=== PATIENT | female | born 1980 | race Two or more races ===

== ENCOUNTER 2020-04-24 13:03 | Outpatient (REF) | payer OTHER, SELFPAY | END 2020-04-24 13:04 | disposition home or self-care (01) | LOC: HO.LAB 13:03 | PROVIDERS: Visit Provider Internal Medicine | DX: Z20.822 Contact with and (suspected) exposure to COVID-19 (principal) | CPT/HCPCS: 36415; C9803; U0003 ==

== ENCOUNTER 2020-10-04 18:46 | Emergency (ER) | payer OTHER, SELFPAY ==
[2020-10-04 19:43] VITALS: BP 133/82; PULSE 75; RESP 17; TEMP 36.7; O2SAT 99; BMI 34.6
--- NOTE | 2020-10-04 21:28 | ECG_ITS ---
Test Reason : MEDICAL Blood Pressure : / mmHG Vent. Rate : 060 BPM Atrial Rate : 060 BPM P-R Int : 152 ms QRS Dur : 090 ms QT Int : 428 ms P-R-T Axes : 050 052 029 degrees QTc Int : 428 ms Normal sinus rhythm Normal ECG No significant changes when compared with the previous EKG of 13 july 2014 Referred By: Sita Pierre Electronically Signed By:SLADE IYER
--- NOTE | 2020-10-04 21:28 | ED.GENADULT ---
HPI - General Adult General Chief complaint: General Medical Stated complaint: neck, back and shoulder pain Time Seen by Provider: 10/04/20 20:44 Source: patient Mode of arrival: ambulatory History of Present Illness HPI narrative: 39-year-old female with a past medical history of asthma, tubal ligation, presenting to the ED complaining of right sided neck/back pain radiating down RUE, and midback pain since Friday s/p lifting heavy mattress. Admits pain exacerbated with movement/ head rotation. Took Tylenol home with little relief. Denies direct trauma / fall, numbness, tingling, weakness, urinary incontinence / retention, CP/SOB Related Data Previous Rx's Medication Instructions Recorded acetaminophen [Tylenol Extra 500 mg PO Q6H PRN #20 tab 10/04/20 Strength] cyclobenzaprine 5 mg PO Q8H PRN 5 Days #14 tab 10/04/20 lidocaine [Lidoderm] 1 patch TOPICAL DAILY PRN #30 ea 10/04/20 MDD remove after 12 hours naproxen 500 mg PO BID PRN 10 Days #20 tab 10/04/20 Allergies Allergy/AdvReac Type Severity Reaction Status Date / Time Environmental Allergy Intermediate UNKNOWN Uncoded 10/04/20 19:43 (SEASONAL ALLERGIES) seasonal., pollen Allergy Unknown seasonal Uncoded 10/04/20 19:43 Review of Systems Review of Systems: Constitutional: No Fever, No Chills Cardiovascular: No Chest Pain, No SOB Respiratory: No Cough, No Sputum, No Wheezing Gastrointestinal: No Nausea, No Vomiting, No Abdominal pain Genitourinary:,No Urinary Incontinence/ retention Musculoskeletal: + joint pain, + Myalgias, No Joint Swelling Skin: No Skin Lesions, No rash Neuro: No Weakness, No Numbness, No Paresthesias Yes all other systems are reviewed and are negative Neurologic: Denies Sensory deficit (Neuro) [facility] Past Medical History Attestation statement: The following information was validated with the patient. Medical History (Updated 10/04/20 @ 21:55 by KIMBERLEE Wang) Asthma Surgical History (Updated 10/04/20 @ 19:47 by Julieth Malin RN) History of tubal ligation Tubal ligation status Family History Family History (Updated 05/19/20 @ 08:58 by MARY Ron, [employer]) Father Asthma Diabetes mellitus Mother HTN (hypertension) Maternal Grandmother No problems noted. Brother No problems noted. Brother No problems noted. Sister No problems noted. Sister No problems noted. Sister No problems noted. Sister No problems noted. Sister Colon cancer Son No problems noted. Daughter No problems noted. Daughter No problems noted. Social History Social History Advance Directives: No Advance Directives Information Provided: No Patient : No Physical Exam Vital Signs: Vital Signs: Last Vital Signs Temp 98.1 F 10/04/20 19:43 Pulse 75 10/04/20 19:43 Resp 17 10/04/20 19:43 BP 133/82 10/04/20 19:43 Pulse Ox 99 10/04/20 19:43 Body Mass Index 34.6 Const: General: cooperative, healthy appearing and no acute distress Orientation/consciousness: patient oriented x3 Limitations: no limitations HENMT: Head: Yes normal to inspection Ears: hearing grossly normal bilaterally General nose exam: Normal external nose present Face and sinus: Yes normal facial exam Eyes: General: appearance normal, both eyes and all related structures EOM: EOMs intact bilaterally Neck: Other: no midline cervical spinous tenderness. + Right-sided paraspinal tenderness and right trapezius muscle tenderness to palpation. Pain elicited on rightward neck movement Neck: Yes normal visual inspection Resp: Effort & Inspection: normal respiratory effort Cardio: Rate: regular rate Peripheral pulses: radial pulses present GI: Inspection: Yes normal to inspection Palpation (GI): Soft to palpation, nontender and no guarding Back/Spine/Pelvis: Other: no midline thoracic/ lumbar spinous tenderness/ step-offs or deformity. + Right-sided MSK thoracic tenderness to palpation Skin: Rashes: no rashes Wounds: no wounds Neuro: Other: no saddle anesthesia General: patient oriented x3, gait normal, tone normal and moves all extremities Gait exam (Neuro): Normal gait present Motor exam (neuro): 5/5 motor strength present throughout Sensory Exam: No Sensory deficit (Neuro) Extrem: General: Yes normal to inspection Medical Decision Making MDM Narrative Medical decision making narrative: 39-year-old female with a past medical history of asthma, tubal ligation, presenting to the ED complaining of right sided neck/back pain radiating down RUE, and midback pain since Friday s/p lifting heavy mattress. On exam VSS, NAD/ well-appearing, no midline spinous tenderness throughout, no red flag symptoms, MSK pain elicited on palpation/with neck movement. Low concern for cauda equina, cord compression. Symptoms atypical for ACS. Low concern for cervical dissection/CVT pain: EKG, symptomatic treatment ECG Data Attestation: I personally reviewed and interpreted this ECG as follows: Interpretation: EKG normal sinus rhythm with a rate of 60. No STEMI, nonischemic Discharge Plan Discharge Clinical Impression: Muscle spasms of neck, Back pain Patient Disposition: Home, Self-Care Instructions: Musculoskeletal Pain (ED) Additional Instructions: Your pain is likely musculoskeletal Flexeril is a muscle relaxer, take at night as it makes you drowsy, do not drive, drink alcohol, or operate machinery while taking it Naproxen as an anti-inflammatory / pain medication, take with food Lidoderm patches are numbing patches, apply to painful area In addition take Tylenol at home If symptoms persist or worsen, pain becomes unbearable, you developed urinary retention or incontinence, or weakness return to the ED Prescriptions: New acetaminophen [Tylenol Extra Strength] 500 mg tablet 500 mg PO Q6H PRN (Reason: pain or fever) Qty: 20 RF: 0 lidocaine [Lidoderm] 5 % adhesive patch,medicated 1 patch topical DAILY MDD remove after 12 hours PRN (Reason: pain) Qty: 30 RF: 0 naproxen 500 mg tablet 500 mg PO BID PRN (Reason: pain) 10 Days Qty: 20 RF: 0 cyclobenzaprine 5 mg tablet 5 mg PO Q8H PRN (Reason: pain (scale score 7-10)) 5 Days Qty: 14 RF: 0 Referrals: Jose De Jesus Ye MD [Primary Care Provider] - 2 days Stand Alone Forms: Work/School Release
[2020-10-04 21:48] VITALS: BP 119/79; PULSE 74; RESP 16; TEMP 36.4; O2SAT 99
== END 2020-10-04 22:18 | disposition home or self-care (01) ==
PROVIDERS: Emergency Provider Emergency Medicine; PCP Family Medicine
DX: M62.838 Other muscle spasm (principal); M54.9 Dorsalgia, unspecified
CPT/HCPCS: 93005; 99283; 99284

== ENCOUNTER 2021-03-06 08:55 | Emergency (ER) | payer OTHER, SELFPAY ==
--- NOTE | ~2021-03-06 | XR_ITS ---
EXAMINATION: XR HIP, RIGHT and pelvis CLINICAL INFORMATION: Pain COMPARISON: None TECHNIQUE: Two views of the right hip and AP view of the pelvis. FINDINGS: No fracture or dislocation is seen. There may be mild bilateral axial joint space narrowing at both hip joints. Hip joints are otherwise normal. Bones of the pelvis are normal. There are bilateral pelvic soft tissue calcifications probably representing calcified phleboliths. XR/XR hip RT w PEL1V IMPRESSION: Question mild bilateral axial joint space narrowing at the hip joints. Otherwise unremarkable exam.
--- NOTE | ~2021-03-06 | XR_ITS ---
EXAMINATION: XR LUMBOSACRAL SPINE CLINICAL INFORMATION: Pain COMPARISON: None TECHNIQUE: Three views of the lumbosacral spine. FINDINGS: The vertebral bodies and posterior elements are normal. The disc spaces are preserved and the vertebral alignment is normal. The paraspinal soft tissues are normal. XR/XR lumbar spine 2-3V IMPRESSION: Unremarkable examination.
[2021-03-06 08:59] VITALS: BP 123/85; PULSE 64; RESP 20; TEMP 36.3; O2SAT 99; BMI 33.5
[2021-03-06 09:09] VITALS: BP 138/81; PULSE 72; RESP 18; TEMP 36.5; O2SAT 96
[2021-03-06] MEDS: Ibuprofen 800 MG TABLET PO (09:37)
[2021-03-06] MEDS: predniSONE 20 MG TABLET 60 MG PO (09:37)
--- NOTE | 2021-03-06 10:22 | ED_ITS ---
HPI - Extremity Problem General Chief complaint: Extremity Problem Stated complaint: Pinched nerve Time Seen by Provider: 03/06/21 09:13 Source: patient and family Mode of arrival: ambulatory Limitations: no limitations History of Present Illness HPI Narrative: 40-year-old female presenting to the ED with complaints of atraumatic right lower back pain/hip pain radiating to her right lateral thigh since yesterday afternoon. 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 She reports she has never had this pain in the past. She denies any fevers, chills, dizziness, headache, neck pain/ stiffness, chest pain or shortness of breath, dyspnea on exertion, orthopnea, palpitations, lower extremity edema or calf tenderness, recent falls, recent travel, Rashes, history of DVT or PE, history of PVD disease, recent illness, recent immobilization or surgery, history of gout or any other symptoms complaints or concerns at this time. MD Complaint: extremity pain Onset (ago): day(s) ( since yesterday) Pain Consistency: constant Location: right and lower extremity ( hip) Severity scale (1-10): >10 Quality: aching and constant Radiation: distal Relieving factors: nothing Exacerbating factors: range of motion, weight bearing, walking and palpation Associated symptoms: denies other symptoms Related Data Previous Rx's Medication Instructions Recorded acetaminophen 500 mg tablet 500 mg PO Q6H PRN #20 tab 10/04/20 (Tylenol Extra Strength) cyclobenzaprine 5 mg tablet 5 mg PO Q8H PRN 5 Days #14 tab 10/04/20 lidocaine 5 % topical patch 1 patch TOPICAL DAILY PRN #30 ea 10/04/20 (Lidoderm) MDD remove after 12 hours naproxen 500 mg tablet 500 mg PO BID PRN 10 Days #20 tab 10/04/20 acetaminophen 300 mg-codeine 30 mg 1 tab PO Q8H PRN #14 tab 03/06/21 tablet cyclobenzaprine 10 mg tablet 10 mg PO Q8H PRN #14 tab 03/06/21 ibuprofen 800 mg tablet 800 mg PO Q8H PRN #14 tab 03/06/21 lidocaine 5 % topical patch 1 patch TOPICAL DAILY #15 ea 03/06/21 (Lidoderm) prednisone 20 mg tablet 40 mg PO DAILY 5 Days #10 tab 03/06/21 Allergies Allergy/AdvReac Type Severity Reaction Status Date / Time Environmental Allergy Intermediate UNKNOWN Uncoded 03/06/21 08:59 (SEASONAL ALLERGIES) seasonal., pollen Allergy Unknown seasonal Uncoded 03/06/21 08:59 Review of Systems Review of Systems: Constitutional : No trauma, No Weight loss, No Fever, No Chills, ENT/Mouth : No Hearing loss, No Ear Pain, No Nasal Congestion, No Sinus Pain, No Hoarseness, No sore throat, No Rhinorrhea, No Swallowing Difficulty Cardiovascular : No Chest Pain, No SOB Respiratory : No Cough, No Dyspnea Gastrointestinal : No Nausea, No Vomiting, No Diarrhea, No abdominal Pain, No Hematochezia, No Melena Genitourinary : No Dysuria, No Urinary Frequency, No Hematuria, No Urinary or Bowel Incontinence/retention Musculoskeletal : + Back/r hip pain, No neck pain, No joint stiffness, No joint swelling Skin : No Skin Lesions, No rash or signs of infection Neuro : No Weakness, + pain radiation, No Numbness, No Paresthesias, No headache, no loss of bowel or bladder incontinence, no saddle anesthesia, Focal weakness, No radiation Denies history of IV drug usage. Yes all other systems are reviewed and are negative [facility] Past Medical History Attestation statement: The following information was validated with the patient. Medical History Asthma Surgical History History of tubal ligation Tubal ligation status Family History Family History Father Asthma Diabetes mellitus Mother HTN (hypertension) Maternal Grandmother No problems noted. Brother No problems noted. Brother No problems noted. Sister No problems noted. Sister No problems noted. Sister No problems noted. Sister No problems noted. Sister Colon cancer Son No problems noted. Daughter No problems noted. Daughter No problems noted. Social History Social History Advance Directives: No Advance Directives Information Provided: Yes Patient : No Physical Exam Vital Signs: Vital Signs: Last Vital Signs Temp 97.7 F 03/06/21 09:09 Pulse 72 03/06/21 09:09 Resp 18 03/06/21 09:09 BP 138/81 03/06/21 09:09 Pulse Ox 96 03/06/21 09:09 BMI result Body Mass Index 33.5 vital signs have been reviewed as normal and appeared to be correct. Blood pressure normal. Heart rate normal. Respiration rate normal. Temperature normal. Oxygen saturation normal. Appearance: Alert. Oriented X3. No acute distress. Head: Normal external exam. Normocephalic. Atraumatic. No Barrientos signs noted. No raccoon eyes noted Eyes: PERRLA. EOMI. Conjunctiva and sclera normal. Eyelids normal. ENT: EAC normal. TM's Normal. Pharynx normal. Uvula midline. Moist mucous membranes. No trismus noted. No drooling noted. No muffled voice noted. Neck: Normal inspection. Neck supple. FROM. No adenopathy. Thyroid Normal. No meningeal signs. No neck mass noted. CVS: Normal heart rate and rhythm. Heart sound normal. No murmurs noted. Pulses normal throughout. Respiratory: No respiratory distress. Painless inspiration. Breath sounds normal. No wheezes/rales/rhonchi noted. Chest nontender. No accessory muscle usage noted or decreased air movement noted. Abdomen: Soft and nontender. Bowel sounds normal in all 4 quadrants. No distention noted. No organomegaly noted. No visible injury noted. Back: No CVA tenderness. Full range of motion noted. No obvious deformities, or edema. Mild para-spinal muscular tenderness from lumbar region to coccyx. Full ROM in back and lower extremities. 5/5 strength hip extension/flexion, abduction, adduction. Mild Lumbar pain with hip flexion against resistance. Straight leg raise test negative on right; Straight leg raise test negative on left; Reflexes normal ankle and knee bilaterally; EHL motor strength normal bilaterally. No rashes/lesion/induration/fluctuance or signs infection noted. and patient has moderate tenderness to palpation with range of motion of the right hip. No obvious ligamentous or tendon injury. No obvious deformities noted. No rashes are noted. Skin: Skin warm and dry. Normal skin color. Normal skin turgor. No rashes/lesions/lacerations noted. Extremities: No lower extremity edema. No calf tenderness is noted. Other than the right hip pain there is no other tenderness to any of her extremities and they have full range of motion. Neuro: Oriented X 3. No motor deficit. No sensory deficit. Reflexes normal. Patient has a normal steady gait. Course Course Course Narrative: 40-year-old female presenting to the ED with complaints of atraumatic right lower back pain/hip pain radiating to her right lateral thigh since yesterday afternoon. 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 She reports she has never had this pain in the past. She denies any fevers, chills, dizziness, headache, neck pain/ stiffness, chest pain or shortness of breath, dyspnea on exertion, orthopnea, palpitations, lower extremity edema or calf tenderness, recent falls, recent travel, Rashes, history of DVT or PE, history of PVD disease, recent illness, recent immobilization or surgery, history of gout or any other symptoms complaints or concerns at this time. X-rays obtained of lower back obtained and revealed chronic changes. X-ray of right hip obtained revealed arthritis to bilateral hips/ narrowing otherwise no other acute processes. Therefore patient reports the Tylenol with codeine /800 mg of Motrin and 60 mg prednisone provided symptomatic relief therefore at this time will provide the same to go home with and instructions to follow-up with primary care provider for referral for therapy and to return if any new or worsening symptoms. Patient understands agrees with this plan. MDM - Extremity (Nontraumatic) Imaging Data Right hip and pelvis x-rays and lower back x-ray: Attestation: I personally reviewed and interpreted this imaging study as follows: Radiologist's impression: FINDINGS: No fracture or dislocation is seen. There may be mild bilateral axial joint space narrowing at both hip joints. Hip joints are otherwise normal. Bones of the pelvis are normal. There are bilateral pelvic soft tissue calcifications probably representing calcified phleboliths. XR/XR hip RT w PEL1V IMPRESSION: Question mild bilateral axial joint space narrowing at the hip joints. Otherwise unremarkable exam. FINDINGS: The vertebral bodies and posterior elements are normal. The disc spaces are preserved and the vertebral alignment is normal. The paraspinal soft tissues are normal. XR/XR lumbar spine 2-3V IMPRESSION: Unremarkable examination.? Discharge Plan Discharge Clinical Impression: Arthritis of right hip, Lumbar strain Patient Disposition: Home, Self-Care Instructions: Osteoarthritis (ED), Low Back Strain (ED) Prescriptions: New cyclobenzaprine 10 mg tablet 10 mg PO Q8H PRN (Reason: Muscle spasm) Qty: 14 RF: 0 ibuprofen 800 mg tablet 800 mg PO Q8H PRN (Reason: pain) Qty: 14 RF: 0 prednisone 20 mg tablet 40 mg PO DAILY 5 Days Qty: 10 RF: 0 acetaminophen-codeine 300-30 mg tablet 1 tab PO Q8H PRN (Reason: pain) Qty: 14 RF: 0 lidocaine [Lidoderm] 5 % adhesive patch,medicated 1 patch topical DAILY Qty: 15 RF: 0 No Action acetaminophen [Tylenol Extra Strength] 500 mg tablet 500 mg PO Q6H PRN (Reason: pain or fever) Qty: 20 RF: 0 lidocaine [Lidoderm] 5 % adhesive patch,medicated 1 patch topical DAILY MDD remove after 12 hours PRN (Reason: pain) Qty: 30 RF: 0 naproxen 500 mg tablet 500 mg PO BID PRN (Reason: pain) 10 Days Qty: 20 RF: 0 cyclobenzaprine 5 mg tablet 5 mg PO Q8H PRN (Reason: pain (scale score 7-10)) 5 Days Qty: 14 RF: 0 Referrals: Jose De Jesus Ye MD [Primary Care Provider] - 2 days Stand Alone Forms: Work/School Release Print Language: Pashto
[2021-03-06 10:35] VITALS: RESP 18
== END 2021-03-06 10:41 | disposition home or self-care (01) ==
PROVIDERS: Emergency Provider Emergency Medicine; PCP Family Medicine
DX: S39.012A Strain of muscle, fascia and tendon of lower back, initial encounter (principal); M16.11 Unilateral primary osteoarthritis, right hip; X58.XXXA Exposure to other specified factors, initial encounter; Y93.9 Activity, unspecified; Y92.9 Unspecified place or not applicable; Y99.9 Unspecified external cause status; Z79.899 Other long term (current) drug therapy
CPT/HCPCS: 72100; 73502; 99283; 99284

== ENCOUNTER 2021-03-28 08:52 | Outpatient (REF) | payer OTHER, SELFPAY | END 2021-03-28 08:53 | disposition home or self-care (01) | LOC: HO.LAB 08:52 | PROVIDERS: Visit Provider Internal Medicine | DX: Z20.822 Contact with and (suspected) exposure to COVID-19 (principal) | CPT/HCPCS: C9803; U0003; U0005 ==

== ENCOUNTER 2021-03-28 08:55 | Outpatient (REF) | payer OTHER, SELFPAY | END 2021-03-28 08:56 | disposition home or self-care (01) | LOC: HO.LAB 08:55 | PROVIDERS: Visit Provider Internal Medicine | DX: Z13.89 Encounter for screening for other disorder (principal) ==

== ENCOUNTER 2021-04-30 10:03 | Outpatient (REF) | payer OTHER, SELFPAY ==
[2021-04-30 10:36] LABS: MANUAL DIFF FLAG NO
[2021-04-30 10:52] LABS: Basophils Percent Auto 0.4 % (0-2); Eosinophils Absolute Auto 0.1 X10*3/uL (0.0-0.4); Eosinophils Percent Auto 2.1 % (0-4); Hematocrit 42.2 % (37.0-47.0); Hemoglobin 13.9 g/dl (12.0-16.0); Imm Gran Abs Auto 0.01 X10*3/uL (0.00-0.03); Imm Gran Pct Auto 0.2 % (0.0-0.4); Lymphocytes Absolute Auto 1.9 X10*3/uL (1.2-4.9); Lymphocytes Percent Auto 33.6 % (20-40); Mean Corpuscular HGB Conc 32.9 g/dl (31.0-35.0); Mean Corpuscular Hemoglobin 31.1 pg (27.0-33.0); Mean Corpuscular Volume 94.4 fL (80.0-98.0); Mean Platelet Volume 12.1 fL (9.4-12.3); Monocytes Absolute Auto 0.3 X10*3/uL (0.1-1.2); Monocytes Percent Auto 4.7 % (2-11); Neutrophils Absolute Auto 3.3 x10*3/uL (2.0-8.3); Platelet Count 173 X10*3/uL (160-400); Red Blood Count 4.47 X10*6/uL (4.20-5.50); Red Cell Distribution Width 11.4 % (11.0-16.0); White Blood Count 5.6 X10*3/uL (4.8-10.8)
[2021-04-30 11:19] LABS: Alanine Aminotransferase 17 U/L (0-31); Albumin Level 4.3 g/dL (3.5-5.0); Alkaline Phosphatase 69 U/L (39-117); Anion Gap 10 (12-20); Aspartate Amino Transferase 18 U/L (5-31); Bilirubin Total 0.2 mg/dL (0.0-1.0); Blood Urea Nitrogen 7 mg/dL (9-16); Calcium 9.7 mg/dL (8.4-10.2); Carbon Dioxide 26 mmol/L (22-29); Chloride 109 mmol/L (96-108); Cholesterol 243 mg/dL; Estimated Glomerular Filt Rate > 60; Glucose Fasting 108 mg/dL (60-99); HDL Cholesterol 50 mg/dL; LDL Cholesterol Calculated 177 mg/dl; Potassium 4.5 mmol/L (3.3-5.1); Sodium 140 mmol/L (135-145); Total Protein 7.1 g/dL (6.5-8.0); Triglycerides 81 mg/dL
[2021-04-30 11:40] LABS: TSH reflex Free T4 1.37 uIU/mL (0.32-4.0)
[2021-04-30 13:51] LABS: Erythrocyte Sedimentation Rate 10 MM/HR (0-20)
[2021-05-01 19:06] LABS: Follicle Stimulating Hormone 43.1 mIU/mL; Lutenizing Hormone 33.7 mIU/mL
== END 2021-04-30 10:04 | disposition home or self-care (01) ==
LOC: HO.LAB 10:03
PROVIDERS: PCP Family Medicine; Visit Provider Family Medicine
DX: Z00.00 Encounter for general adult medical examination without abnormal findings (principal); M16.11 Unilateral primary osteoarthritis, right hip; Z78.0 Asymptomatic menopausal state
CPT/HCPCS: 36415; 80053; 80061; 83001; 83002; 84443; 85025; 85652

== ENCOUNTER 2021-06-05 08:47 | Emergency (ER) | payer OTHER, SELFPAY ==
--- NOTE | ~2021-06-05 | XR_ITS ---
EXAMINATION: XR ELBOW, LEFT CLINICAL INFORMATION: Atraumatic pain COMPARISON: None TECHNIQUE: AP, lateral, and oblique views of the left elbow. FINDINGS: The bones and soft tissues are normal. No fracture or joint effusion. Alignment is anatomic. Joint spaces are maintained. XR/XR elbow LT min 3V IMPRESSION: Normal left elbow.
--- NOTE | ~2021-06-05 | XR_ITS ---
EXAMINATION: XR HIP, LEFT CLINICAL INFORMATION: Atraumatic left hip pain COMPARISON: None TECHNIQUE: Two views of the left hip and one view of the pelvis. FINDINGS: Bone alignment is normal. No fracture or dislocation is seen. The left hip joint is normal. Bones of the pelvis are normal. Soft tissues are normal. XR/XR hip LT w PEL1V IMPRESSION: Unremarkable exam.
[2021-06-05 10:55] VITALS: BP 155/89; PULSE 64; RESP 16; TEMP 37; O2SAT 100; BMI 34.9
[2021-06-05] MEDS: Ibuprofen 800 MG TABLET PO (11:34)
--- NOTE | 2021-06-05 12:28 | ED.EXTPRO ---
HPI - Extremity Problem General Chief complaint: Extremity Injury, Upper Stated complaint: L hip pain Time Seen by Provider: 06/05/21 11:14 Source: patient Mode of arrival: ambulatory Limitations: no limitations History of Present Illness HPI Narrative: 40-year-old female with a past medical history of arthritis presenting to the ED with complaints of atraumatic left elbow pain and atraumatic left hip pain for the past few days worse today. Reports that it is worse when she turns Her body position especially in the hip area. she reports that she was seen here on 03/06/2021 for similar symptoms to the right hip and had an x-ray and was diagnosed with arthritis she was prescribed high-dose Motrin, Lidoderm patches, prednisone, Flexeril and Tylenol with codeine and she reports that she had symptomatic relief although she did not like the way the Tylenol with codeine made her feel and she does not want any narcotics today. She reports that her doctor seen her shortly after being seen here and referred her to a director counseling bureau that she has a follow-up appointment with all though she has not seen yet. She denies any dizziness, headaches, neck pain /stiffness, paresthesias, chest pain or shortness of breath, jaw pain, nausea/ vomiting, palpitations, abdominal pain, joint swelling, abdominal pain, diarrhea constipation, black or bloody stools, lower extremity edema or calf tenderness, recent falls or traumas, history of IV drug use, fevers, rashes, PVD disease, recent surgery procedure, recent travel or immobilization, history of DVT or PE, recent illness, history of gout or any other symptoms complaints or concerns at this time. MD Complaint: joint pain ( Left elbow and left hip) Onset (ago): day(s) Pain Consistency: constant Location: left, upper extremity and lower extremity Quality: aching, sharp and constant Radiation: none Relieving factors: nothing Exacerbating factors: weight bearing, walking and palpation Associated symptoms: denies other symptoms Related Data Home Medications Medication Instructions Recorded Confirmed fexofenadine 180 mg tablet 180 mg PO DAILY 03/09/21 (Annel Allergy) Previous Rx's Medication Instructions Recorded acetaminophen 500 mg tablet 500 mg PO Q6H PRN #20 tab 10/04/20 (Tylenol Extra Strength) acetaminophen 300 mg-codeine 30 mg 1 tab PO Q8H PRN #14 tab 03/06/21 tablet cyclobenzaprine 10 mg tablet 10 mg PO Q8H PRN #14 tab 03/06/21 ibuprofen 800 mg tablet 800 mg PO Q8H PRN #14 tab 03/06/21 lidocaine 5 % topical patch 1 patch TOPICAL DAILY #15 ea 03/06/21 (Lidoderm) prednisone 20 mg tablet 40 mg PO DAILY 5 Days #10 tab 03/06/21 albuterol sulfate 90 mcg/actuation 2 inh INHALATION Q4-6H PRN 30 Days 03/09/21 aerosol inhaler #8.5 g arm brace (Wrist Brace Medium) #1 ea 03/09/21 albuterol sulfate 2.5 mg (3 mL) INHALATION Q4-6H PRN 03/12/21 30 Days #180 ml NS acetaminophen 500 mg tablet 1,000 mg PO QID PRN #14 tab 06/05/21 (Tylenol Extra Strength) cyclobenzaprine 10 mg tablet 10 mg PO Q8H PRN #14 tab 06/05/21 ibuprofen 800 mg tablet 800 mg PO Q8H PRN #14 tab 06/05/21 lidocaine 5 % topical patch 1 patch TOPICAL DAILY #15 ea 06/05/21 (Lidoderm) prednisone 20 mg tablet 40 mg PO DAILY 5 Days #10 tab 06/05/21 Allergies Allergy/AdvReac Type Severity Reaction Status Date / Time Environmental Allergy Intermediate UNKNOWN Uncoded 03/09/21 11:30 (SEASONAL ALLERGIES) seasonal., pollen Allergy Unknown seasonal Uncoded 03/09/21 11:30 Review of Systems Review of Systems: Constitutional : No Weight loss, No Fever, No Chills, No Night Sweats, No Fatigue, No Malaise ENT/Mouth : No Hearing loss, No Ear Pain, No Nasal Congestion, No Sinus Pain, No Hoarseness, No sore throat, No Rhinorrhea, No Swallowing Difficulty Eyes: No Eye Pain, No Swelling, No Redness, No Foreign Body, No Discharge, No Vision Changes Cardiovascular : No Chest Pain, No SOB, No Dyspnea on Exertion, No Orthopnea, No Edema, No Palpitations Respiratory : No Cough, No Sputum, No Wheezing, No Smoke Exposure, No Dyspnea Gastrointestinal : No Nausea, No Vomiting, No Diarrhea, No Constipation, No abdominal Pain, No Hematochezia, No Melena Genitourinary : no irregular bleeding, No Dysuria, No Urinary Frequency, No Hematuria, No Urinary Incontinence, No Urgency, No Flank Pain, No Urinary Flow Changes, No Hesitancy Musculoskeletal : + left elbow and left hip joint pain, No Myalgias, No Joint Swelling Skin : No Skin Lesions, No rash Neuro : No Weakness, No Numbness, No Paresthesias, No Loss of Consciousness, No Dizziness, No Headache Psych : No Anxiety/Panic, No Depression, No SI/HI/AH/VH, No Social Issues, Heme/Lymph: No Bruising, No Bleeding,No Lymphadenopathy Endocrine : No Polyuria, No Polydipsia, No Temperature Intolerance Yes all other systems are reviewed and are negative [facility] Past Medical History Attestation statement: The following information was validated with the patient. Medical History Asthma Surgical History History of tubal ligation Tubal ligation status Family History Family History Father Asthma Diabetes mellitus Mother HTN (hypertension) Maternal Grandmother No problems noted. Brother No problems noted. Brother No problems noted. Sister No problems noted. Sister No problems noted. Sister No problems noted. Sister No problems noted. Sister Colon cancer Son No problems noted. Daughter No problems noted. Daughter No problems noted. 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 Blood pressure 155/89 Heart rate normal. Respiration rate normal. Temperature normal. Oxygen saturation normal. Appearance: Alert. Oriented X3. No acute distress. Head: Normal external exam. Normocephalic. Atraumatic. Eyes: PERRLA. EOMI. Conjunctiva and sclera normal. Eyelids normal. ENT: Pharynx normal. Uvula midline. Moist mucous membranes. Neck: Normal inspection. Neck supple. FROM. CVS: Normal heart rate and rhythm. Respiratory: No respiratory distress. Painless inspiration. Skin: Skin warm and dry. Normal skin color. Normal skin turgor. No rashes/lesions/lacerations noted. Extremities: patient with tenderness to palpation to the lateral aspect of the left hip no obvious ligamentous or tendon injury noted. No rashes are noted to the left hip or back area. No obvious deformities are noted. She has full range of motion of the left hip although does have pain with external rotation of the leg and abduction of the left leg. She has mild tenderness up patient to the left elbow. There are no ligamentous or tendon injury noted. There are no signs of infection noted. She has full range of motion of the left elbow. There is no joint effusion that I can visualize at this time. There are no signs of infection noted to the left hip area or the back. There is no calf tenderness orNo lower extremity edema. otherwise all other Extremities exhibit normal range of motion and nontender. Neuro: Oriented X 3. No motor deficit. No sensory deficit. Reflexes normal. Normal steady gait. No focal neuro deficits noted. Vascular: + radial pulses/+ 2 distal pedal pulses/+2 dorsalis pedis b/l. Normal cap refill. No cyanosis noted to upper extremity nails and lower extremity toes nails. Course Course Course Narrative: 40-year-old female with a past medical history of arthritis presenting to the ED with complaints of atraumatic left elbow pain and atraumatic left hip pain for the past few days worse today. Reports that it is worse when she turns Her body position especially in the hip area. she reports that she was seen here on 03/06/2021 for similar symptoms to the right hip and had an x-ray and was diagnosed with arthritis she was prescribed high-dose Motrin, Lidoderm patches, prednisone, Flexeril and Tylenol with codeine and she reports that she had symptomatic relief although she did not like the way the Tylenol with codeine made her feel and she does not want any narcotics today. She reports that her doctor seen her shortly after being seen here and referred her to a director counseling bureau that she has a follow-up appointment with all though she has not seen yet. will obtain x-rays of left elbow and left hip. I explained to patient that most likely she has muscular strain versus joint strain versus arthritis. Will DC home after the x-rays with Motrin, Flexeril, prednisone and Lidoderm patches along with instructions follow-up with PCP and director counseling bureau and to return if any new or worsening symptoms. Patient understands agrees with this plan. MDM - Extremity (Nontraumatic) Medical Records Attestation: I reviewed the patient's medical records. Imaging Data Left elbow and left hip x-ray: Attestation: I personally reviewed and interpreted this imaging study as follows: Radiologist's impression: FINDINGS: The bones and soft tissues are normal. No fracture or joint effusion. Alignment is anatomic. Joint spaces are maintained.? XR/XR elbow LT min 3V IMPRESSION: Normal left elbow FINDINGS: Bone alignment is normal. No fracture or dislocation is seen. The left hip joint is normal. Bones of the pelvis are normal. Soft tissues are normal. XR/XR hip LT w PEL1V IMPRESSION: Unremarkable exam. Discharge Plan Discharge Clinical Impression: Strain of left elbow, Muscle strain of left hip Patient Disposition: Home, Self-Care Instructions: Muscle Strain (DC) Prescriptions: New cyclobenzaprine 10 mg tablet 10 mg PO Q8H PRN (Reason: Muscle spasm) Qty: 14 0RF ibuprofen 800 mg tablet 800 mg PO Q8H PRN (Reason: pain) Qty: 14 0RF prednisone 20 mg tablet 40 mg PO DAILY 5 Days Qty: 10 0RF acetaminophen [Tylenol Extra Strength] 500 mg tablet 1,000 mg PO QID PRN (Reason: fever or pain) Qty: 14 0RF lidocaine [Lidoderm] 5 % adhesive patch,medicated 1 patch topical DAILY Qty: 15 0RF Rx Instructions: leave on most painful area for up to 12 hrs. May be substituted No Action albuterol sulfate 2.5 mg /3 mL (0.083 %) solution for nebulization 2.5 mg inhalation Q4-6H PRN (Reason: shortness of breath or wheezing) 30 Days Qty: 180 4RF acetaminophen [Tylenol Extra Strength] 500 mg tablet 500 mg PO Q6H PRN (Reason: pain or fever) Qty: 20 0RF cyclobenzaprine 10 mg tablet 10 mg PO Q8H PRN (Reason: Muscle spasm) Qty: 14 0RF ibuprofen 800 mg tablet 800 mg PO Q8H PRN (Reason: pain) Qty: 14 0RF prednisone 20 mg tablet 40 mg PO DAILY 5 Days Qty: 10 0RF acetaminophen-codeine 300-30 mg tablet 1 tab PO Q8H PRN (Reason: pain) Qty: 14 0RF lidocaine [Lidoderm] 5 % adhesive patch,medicated 1 patch topical DAILY Qty: 15 0RF Rx Instructions: leave on most painful area for up to 12 hrs. May be substituted fexofenadine [Annel Allergy] 180 mg tablet 180 mg PO DAILY 0RF (DME) Wrist Brace Medium Misc See Rx Instructions .Route Qty: 1 0RF Rx Instructions: Left wrist brace. Daily As directed. albuterol sulfate 90 mcg/actuation HFA aerosol inhaler 2 inh inhalation Q4-6H PRN (Reason: shortness of breath or wheezing) 30 Days Qty: 8.5 4RF Referrals: Jose De Jesus Ye MD [Primary Care Provider] - 2 days Print Language: Barbadian
== END 2021-06-05 13:06 | disposition home or self-care (01) ==
PROVIDERS: Emergency Provider Student in an Organized Health Care Education/Training Program; PCP Family Medicine
DX: S76.012A Strain of muscle, fascia and tendon of left hip, initial encounter (principal); S46.812A Strain of other muscles, fascia and tendons at shoulder and upper arm level, left arm, initial encounter; X58.XXXA Exposure to other specified factors, initial encounter; F17.200 Nicotine dependence, unspecified, uncomplicated; Y93.9 Activity, unspecified; Y92.9 Unspecified place or not applicable; Y99.9 Unspecified external cause status
CPT/HCPCS: 73080; 73502; 99283; 99284

== ENCOUNTER 2021-07-17 07:49 | Outpatient (REF) | payer OTHER, SELFPAY ==
--- NOTE | ~2021-07-17 | XR_ITS ---
EXAMINATION: XR FEMUR, LEFT CLINICAL INFORMATION: Left leg pain COMPARISON: Left hip of June 05, 2021 TECHNIQUE: AP and lateral views of the left femur were obtained. FINDINGS: There is no evidence of acute fracture or dislocation of the left femur. No destructive bony lesions are identified. No significant abnormality of the left hip joint or knee joint appreciated. XR/XR femur LT 2V IMPRESSION: No significant bony abnormality of the left femur identified.
[2021-07-17 10:49] LABS: C Reactive Protein 0.29 mg/dL (< or = 0.50); Cholesterol 217 mg/dL; HDL Cholesterol 40 mg/dL; LDL Cholesterol Calculated 155 mg/dl; Triglycerides 114 mg/dL
[2021-07-17 11:15] LABS: Erythrocyte Sedimentation Rate 13 MM/HR (0-20)
== END 2021-07-17 07:50 | disposition home or self-care (01) ==
LOC: HO.LAB 07:49
PROVIDERS: PCP Family Medicine; Visit Provider Internal Medicine Rheumatology
DX: M25.552 Pain in left hip (principal); M25.562 Pain in left knee; M54.32 Sciatica, left side; R20.0 Anesthesia of skin; E78.00 Pure hypercholesterolemia, unspecified
CPT/HCPCS: 36415; 73552; 80061; 85652; 86140; 99202

== ENCOUNTER 2021-08-29 13:01 | Outpatient (REF) | payer OTHER, SELFPAY ==
[2021-09-01 13:02] LABS: HPV mRNA E6/E7 rflx Not Detected (Not Detected)
== END 2021-08-29 13:02 | disposition home or self-care (01) ==
LOC: HO.LAB 13:01
PROVIDERS: Visit Provider Obstetrics & Gynecology
DX: Z01.419 Encounter for gynecological examination (general) (routine) without abnormal findings (principal); Z78.0 Asymptomatic menopausal state
CPT/HCPCS: 87624; 88142

== ENCOUNTER → 2021-08-30 10:59 | Outpatient (BNVA) | payer OTHER, SELFPAY | PROVIDERS: PCP Family Medicine; Visit Provider Internal Medicine Rheumatology | DX: M54.32 Sciatica, left side (principal); R10.32 Left lower quadrant pain | CPT/HCPCS: 99212 ==

== ENCOUNTER → 2021-09-10 10:46 | Outpatient (BNVA) | payer OTHER, SELFPAY | PROVIDERS: PCP Family Medicine; Referring Provider Internal Medicine Rheumatology; Visit Provider Surgery | DX: R10.32 Left lower quadrant pain (principal); M25.562 Pain in left knee; M54.32 Sciatica, left side; M25.552 Pain in left hip; K21.9 Gastro-esophageal reflux disease without esophagitis; R20.0 Anesthesia of skin; R73.03 Prediabetes; J45.909 Unspecified asthma, uncomplicated; Z78.0 Asymptomatic menopausal state | CPT/HCPCS: 99202 ==

== ENCOUNTER 2021-09-13 10:51 | Outpatient (REF) | payer OTHER, SELFPAY ==
--- NOTE | ~2021-09-13 | MM_ITS ---
EXAMINATION: MM SCREENING DIGITAL BREAST TOMOSYNTHESIS, BILATERAL CLINICAL INFORMATION: Screening. Asymptomatic. The lifetime risk of breast cancer based on the Tyrer-Cuzick Model is 7%. COMPARISON: Outside mammography: 04/23/2012 ([place]). TECHNIQUE: Digital breast tomosynthesis is performed in both the craniocaudal and mediolateral oblique views along with computer-aided detection (CAD). Synthesized 2D images are generated from the tomosynthesis. FINDINGS: There are scattered areas of fibroglandular density (ACR BI-RADS breast composition Category b). There are no significant masses, abnormal calcifications, or other abnormalities. Parenchymal pattern is similar to prior outside exam. No architectural abnormality. The axilla and skin contours are unremarkable. MM/MM tomosynthesis screening BI IMPRESSION: There are no significant changes from prior study. ASSESSMENT: BI-RADS 1: Negative RECOMMENDATION: Routine annual mammography screening. This patient's information was entered into a reminder system with a target due date for their next mammogram.
== END 2021-09-13 10:52 | disposition home or self-care (01) ==
LOC: HO.MAMMO 10:51
PROVIDERS: Visit Provider Obstetrics & Gynecology
DX: Z12.31 Encounter for screening mammogram for malignant neoplasm of breast (principal)
CPT/HCPCS: 77063; 77067

== ENCOUNTER 2021-09-20 09:05 | Outpatient (REF) | payer OTHER, SELFPAY ==
--- NOTE | 2021-09-20 09:08 | EMG_ITS ---
Left median and ulnar motor and sensory studies were performed. Left radial sensory study was performed and paraspinal muscles were tested. IMPRESSION: Unremarkable study with no significant abnormality noted. MD CHELSIE Owen/JEFF / [id number]
== END 2021-09-20 09:06 | disposition home or self-care (01) ==
LOC: HO.NEURO 09:05
PROVIDERS: Visit Provider Internal Medicine Rheumatology
DX: R20.0 Anesthesia of skin (principal)
CPT/HCPCS: 95886; 95909

== ENCOUNTER 2021-10-16 10:40 | Outpatient (REF) | payer OTHER, SELFPAY ==
[2021-10-16 13:49] LABS: Alanine Aminotransferase 23 U/L (0-31); Albumin Level 4.5 g/dL (3.5-5.0); Alkaline Phosphatase 96 U/L (39-117); Anion Gap 11 (12-20); Aspartate Amino Transferase 22 U/L (5-31); Bilirubin Total 0.4 mg/dL (0.0-1.0); Blood Urea Nitrogen 7 mg/dL (9-16); Calcium 9.5 mg/dL (8.4-10.2); Carbon Dioxide 25 mmol/L (22-29); Chloride 107 mmol/L (96-108); Cholesterol 245 mg/dL; Estimated Glomerular Filt Rate > 60; Glucose Fasting 105 mg/dL (60-99); HDL Cholesterol 48 mg/dL; LDL Cholesterol Calculated 170 mg/dl; Potassium 3.9 mmol/L (3.3-5.1); Sodium 139 mmol/L (135-145); Total Protein 7.3 g/dL (6.5-8.0); Triglycerides 138 mg/dL
== END 2021-10-16 10:41 | disposition home or self-care (01) ==
LOC: HO.WFDLDS 10:40
PROVIDERS: Visit Provider Family Medicine
DX: Z00.00 Encounter for general adult medical examination without abnormal findings (principal)
CPT/HCPCS: 36415; 80053; 80061

== ENCOUNTER 2022-01-26 10:13 | Emergency (ER) | payer OTHER, SELFPAY ==
[2022-01-26 10:16] VITALS: BP 127/88; PULSE 82; RESP 16; TEMP 36.7; O2SAT 99; BMI 36.5
--- NOTE | 2022-01-26 11:02 | ED_ITS ---
HPI - General Adult General Chief complaint: Extremity Problem Stated complaint: r leg pain Time Seen by Provider: 01/26/22 11:02 Source: patient Mode of arrival: ambulatory Limitations: no limitations History of Present Illness HPI narrative: Patient is a 41 year old assigned female at with a history of sciatica presenting to the emergency department today with right sided back pain. Patient states that she has been having issues with sciatic nerve pain for the last few months and now it is effecting her right side as well. Patient states that she saw a onboarding specialist for it and they weren't able to do anything. Patient states that she is going to see them again mid-January. Patient denies any dizziness, lightheadedness, abdominal pain, nausea, vomiting, fever, chills, blurry vision, double vision, loss of vision, chest pain, difficulty breathing, shortness of breath, night sweats, pain with urination, increased urinary frequency, increased urinary urgency, blood in her urine or stool, syncope or a near syncopal episode, recent trauma or falls, bowel incontinence, bladder incontinence, bowel retention, bladder retention, or any other complaints at this time. Onset (ago): month(s) Location: back Radiation: extremity Severity: mild Severity scale (1-10): 3 Quality: aching Pain Consistency: intermittent Relieving factors: none Exacerbating factors: none Associated symptoms: denies other symptoms Treatments prior to arrival: none Related Data Home Medications Medication Instructions Recorded Confirmed fexofenadine 180 mg tablet 180 mg PO DAILY 03/09/21 08/30/21 (Annel Allergy) esomeprazole magnesium 20 mg 20 mg PO DAILY PRN 08/30/21 08/30/21 capsule,delayed release (Nexium) Previous Rx's Medication Instructions Recorded acetaminophen 500 mg tablet 1,000 mg PO QID PRN fever or pain 06/05/21 (Tylenol Extra Strength) #14 tabs albuterol sulfate 90 mcg/actuation 2 inh inhalation Q4-6H PRN 08/28/21 aerosol inhaler shortness of breath or wheezing 30 days #8.5 grams meloxicam 15 mg tablet 15 mg PO DAILY 30 days #30 tabs 08/28/21 citalopram 20 mg tablet 20 mg PO DAILY 30 days #30 tabs 09/25/21 atorvastatin 20 mg tablet 20 mg PO BEDTIME 30 days #30 tabs 11/13/21 azithromycin 250 mg tablet See Rx Instructions PO .COMPLEX #6 12/26/21 tabs benzonatate 100 mg capsule 100 mg PO TID PRN cough #14 caps 12/26/21 prednisone 10 mg tablet 10 mg PO DAILY #16 tabs 12/26/21 prednisone 20 mg tablet 20 mg PO DAILY 12 days #26 tabs 01/26/22 Allergies Allergy/AdvReac Type Severity Reaction Status Date / Time Environmental Allergy Intermediate UNKNOWN Uncoded 12/26/21 15:11 (SEASONAL ALLERGIES) Review of Systems Constitutional: Constitutional: Reports no additional constitutional complaints, Denies chills, Denies fever(s) and Denies night sweats Eyes: Eyes: Reports no additional eye complaints, Denies blurry vision, Denies change in vision, Denies diplopia, Denies eye discharge, Denies loss of vision and Denies eye pain ENT: Denies dizziness Cardiovascular: Cardiovascular: Reports no additional cardiovascular complaints, Denies chest pain, Denies lightheadedness, Denies Loss of C onsciousness and Denies dyspnea Respiratory: Respiratory: Reports no additional respiratory complaints and Denies dyspnea Gastrointestinal: Gastrointestinal: Reports no additional gastrointestinal complaints, Denies abdominal pain, Denies melena, Denies hematochezia, Denies change in bowel habits and Denies change in stool character Genitourinary: Genitourinary: Denies hematuria, Denies urinary frequency, Denies dysuria, Denies urinary incontinence, Denies urinary hesitancy and Denies urinary urgency Musculoskeletal: Musculoskeletal: Reports no additional musculoskeletal compla ints, Reports back pain, Denies numbness and Denies tingling Neurologic: Denies dizziness, Denies loss of vision, Denies numbness and Denies tingling Psychiatric: Psychiatric: Reports no additional psychiatric complaints Endocrine: Endocrine: Reports no additional endocrine complaints Hematologic/Lymphatic: Hematologic/Lymphatic: Reports no additional hematologic/lymphatic complaints Allergic/Immunologic: Allergic/Immunologic: Reports no additional allergic/immunologic complaints PMFSH Past Medical History Attestation statement: The following information was validated with the patient. Source: old records reviewed Medical History Asthma LLQ abdominal pain Numbness of left hand Surgical History History of tubal ligation Tubal ligation status Family History Family History Father Asthma Diabetes mellitus Mother HTN (hypertension) Maternal Grandmother No problems noted. Brother No problems noted. Brother No problems noted. Sister No problems noted. Sister No problems noted. Sister No problems noted. Sister No problems noted. Sister Colon cancer Son No problems noted. Daughter No problems noted. Daughter No problems noted. 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 Current occupational exposures/hazards: No Cognitive needs: No Hearing needs: No Vision needs: Yes (glasses) Physical Exam ED Vital Signs: Vital Signs - 24 hr 01/26/22 10:16 Temperature 98.0 F Pulse Rate 82 Respiratory Rate 16 Blood Pressure 127/88 Pulse Oximetry 99 Oxygen Delivery Method Room Air BMI result Body Mass Index 36.5 Const General: cooperative, no acute distress, alert and awake Nutritional Appearance: well nourished Orientation/consciousness: patient oriented x3 Limitations: no limitations HENMT Head: Yes normal to inspection and Yes atraumatic Ears: hearing grossly normal bilaterally and external ears normal General nose exam: Normal external nose present, no nasal discharge noted and no epistaxis Face and sinus: Yes normal facial exam, No abrasion and No laceration Mouth: Normal oral and palatal mucosa present, no drooling and no muffled voice Eyes General: appearance normal, both eyes and all related structures Periorbital: periorbital findings normal Eyelids: Yes eyelids normal Conjunctivae: conjunctivae normal Pupils: Equal, round and reactive pupils present EOM: EOMs intact bilaterally Neck Neck: Yes normal visual inspection, Yes full ROM and Yes no lymphadenopathy Chest Chest palpation & inspection: normal inspection of the chest Resp Effort & Inspection: normal respiratory effort and able to speak in complete sentences Auscultation: clear to auscultation bilaterally Cardio Rate: regular rate Rhythm: regular rhythm GI Inspection: Yes normal to inspection General: Yes no CVA tenderness Back/Spine/Pelvis Back: no CVA tenderness Cervical Spine: normal cervical lordosis and cervical ROM normal Thoracic/Lumbar Spine: thoracic and lumbar spine normal to inspection and thoraco-lumbar ROM normal Neuro General: patient oriented x3 and moves all extremities Cranial nerves: Yes Equal, round and reactive pupils present Cognition (Neuro): normal cognition Motor exam (neuro): 5/5 motor strength present throughout Sensory Exam: Normal double simultaneous stimulation for sensation Coordination: [id number] test normal Extrem General: Yes normal to inspection, Yes full ROM and Yes capillary refill normal Psych Appearance: grossly normal Mental Status: mental status grossly normal Affect: normal affect Attitude: cooperative Thought process: Normal thought process present Thought content: Normal thought content present Insight: Good insight present (Psych) Medical Decision Making MDM Narrative Medical decision making narrative: Patient is a 41 year old assigned female at with a history of sciatica presenting to the emergency department today with a sciatic nerve flare. Patient's physical exam was unremarkable. I explained my physical exam findings to the patient. I answered all questions asked by the patient. Patient received IM Toradol and IM Solu-Medrol which she stated helped her symptoms significantly. I stressed the importance of the patient taking her medication as prescribed. I stressed the importance of the patient following up with her primary care provider and her onboarding specialist. I stressed the importance of the patient returning to the emergency department immediately if her symptoms were to worsen or if she were to develop any dizziness, shortness of breath, difficulty breathing, chest pain, blurry vision, loss of vision, nausea, vomiting, abdominal pain, fever, chills, back pain, or any other complaints. Patient verbalized agreement and understanding with this treatment plan and discharge. Medical Records Medical records reviewed: Yes I reviewed the patient's medical records. Discharge Plan Discharge Clinical Impression: Sciatica Patient Disposition: Home, Self-Care Instructions: Sciatica (ED), Lower Back Exercises (ED) Additional Instructions: Follow up with your primary care provider and your onboarding specialist as scheduled. Return to the emergency department immediately if your symptoms worsen or if you develop any dizziness, shortness of breath, difficulty breathing, chest pain, blurry vision, loss of vision, nausea, vomiting, abdominal pain, fever, chills, back pain, or any other complaints. Prescriptions: New prednisone 20 mg tablet 20 mg PO DAILY 12 Days Qty: 26 0RF Rx Instructions: Take 3 tablets for 5 days THEN; Take 2 tablets for 4 days THEN; Take 1 tablet for 3 days No Action meloxicam 15 mg tablet 15 mg PO DAILY 30 Days Qty: 30 1RF albuterol sulfate 90 mcg/actuation HFA aerosol inhaler 2 inh inhalation Q4-6H PRN (Reason: shortness of breath or wheezing) 30 Days Qty: 8.5 4RF citalopram 20 mg tablet 20 mg PO DAILY 30 Days Qty: 30 3RF acetaminophen [Tylenol Extra Strength] 500 mg tablet 1,000 mg PO QID PRN (Reason: fever or pain) Qty: 14 0RF fexofenadine [Annel Allergy] 180 mg tablet 180 mg PO DAILY azithromycin 250 mg tablet See Rx Instructions PO .COMPLEX Qty: 6 0RF Rx Instructions: For 250 mg dose pack: take 500 mg today (day 1), then 250 mg for 4 days (days 2-5) PO prednisone 10 mg tablet 10 mg PO DAILY Qty: 16 0RF Rx Instructions: Take 4 tabs p.o. daily x4 days benzonatate 100 mg capsule 100 mg PO TID PRN (Reason: cough) Qty: 14 0RF atorvastatin 20 mg tablet 20 mg PO BEDTIME 30 Days Qty: 30 2RF esomeprazole magnesium [Nexium] 20 mg capsule,delayed release(DR/EC) 20 mg PO DAILY PRN Referrals: Jose De Jesus Ye MD [Primary Care Provider] - Print Language: [place]
[2022-01-26] MEDS: methylPREDNISolone Sod Succ 125 MG/2 ML VIAL 60 MG IM (11:44)
[2022-01-26] MEDS: Ketorolac Tromethamine 15 MG/ML VIAL IM (11:44)
== END 2022-01-26 11:59 | disposition home or self-care (01) ==
PROVIDERS: Emergency Provider Emergency Medicine; PCP Family Medicine
DX: M54.41 Lumbago with sciatica, right side (principal); M79.661 Pain in right lower leg; F17.210 Nicotine dependence, cigarettes, uncomplicated; Z71.6 Tobacco abuse counseling; Z79.899 Other long term (current) drug therapy
CPT/HCPCS: 96372; 99283; 99284; J1885; J2930

== ENCOUNTER 2022-05-13 13:10 | Emergency (ER) | payer OTHER, SELFPAY ==
--- NOTE | ~2022-05-13 | XR_ITS ---
EXAMINATION: XR SHOULDER, LEFT CLINICAL INFORMATION: Pain. COMPARISON: Left shoulder 07/27/2018 TECHNIQUE: Four views of the left shoulder. FINDINGS: The bones and soft tissues are normal. No fracture. Glenohumeral and acromioclavicular alignment is anatomic with normal joint space. No abnormal soft tissue calcifications. XR/XR shoulder LT min 2V IMPRESSION: Normal left shoulder.
--- NOTE | ~2022-05-13 | XR_ITS ---
EXAMINATION: XR FOOT, RIGHT CLINICAL INFORMATION: Pain COMPARISON: None TECHNIQUE: AP, lateral, and oblique views of the right foot. FINDINGS: The bones and soft tissues are normal. No fracture. Alignment is anatomic. Joint spaces are maintained. XR/XR foot RT min 3V IMPRESSION: Normal right foot.
--- NOTE | 2022-05-13 16:05 | ED.GENADULT ---
HPI - General Adult General Chief complaint: Extremity Problem Stated complaint: l arm pain leg swelling back pain Time Seen by Provider: 05/13/22 17:33 Related Data Home Medications Medication Instructions Recorded Confirmed fexofenadine 180 mg tablet 180 mg PO DAILY 03/09/21 08/30/21 (Annel Allergy) esomeprazole magnesium 20 mg 20 mg PO DAILY PRN 08/30/21 08/30/21 capsule,delayed release (Nexium) Previous Rx's Medication Instructions Recorded acetaminophen 500 mg tablet 1,000 mg PO QID PRN fever or pain 06/05/21 (Tylenol Extra Strength) #14 tabs albuterol sulfate 90 mcg/actuation 2 inh inhalation Q4-6H PRN 08/28/21 aerosol inhaler shortness of breath or wheezing 30 days #8.5 grams meloxicam 15 mg tablet 15 mg PO DAILY 30 days #30 tabs 08/28/21 citalopram 20 mg tablet 20 mg PO DAILY 30 days #30 tabs 09/25/21 azithromycin 250 mg tablet See Rx Instructions PO .COMPLEX #6 12/26/21 tabs benzonatate 100 mg capsule 100 mg PO TID PRN cough #14 caps 12/26/21 prednisone 10 mg tablet 10 mg PO DAILY #16 tabs 12/26/21 prednisone 20 mg tablet 20 mg PO DAILY 12 days #26 tabs 01/26/22 atorvastatin 20 mg tablet 20 mg PO BEDTIME #30 tabs 02/08/22 lidocaine 5 % topical patch 1 patch topical DAILY PRN pain #15 05/13/22 ea Allergies Allergy/AdvReac Type Severity Reaction Status Date / Time Environmental Allergy Intermediate UNKNOWN Uncoded 05/13/22 16:12 (SEASONAL ALLERGIES) [facility] Past Medical History Medical History Asthma LLQ abdominal pain Numbness of left hand Surgical History History of tubal ligation Tubal ligation status Family History Family History Father Asthma Diabetes mellitus Mother HTN (hypertension) Maternal Grandmother No problems noted. Brother No problems noted. Brother No problems noted. Sister No problems noted. Sister No problems noted. Sister No problems noted. Sister No problems noted. Sister Colon cancer Son No problems noted. Daughter No problems noted. Daughter No problems noted. 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 No chest pain. No trauma or falls. Has been taking Meloxicam but ran out. Has been following with PCP who referred her to custom framing specialist but they haven't done anything to help her. No red flag symptoms of LBP. Will get XR shoulder. Will need to f/u with her providers for further Rheum workup. Discharge Plan Discharge Clinical Impression: Shoulder tendonitis, Foot pain, right Patient Disposition: Home, Self-Care Additional Instructions: X-ray of her left shoulder did not show any bony abnormalities. Her pain is likely related to tendinitis. He may continue to use ibuprofen and Tylenol for pain. He may also try lidocaine patches topically to the area once per day. Follow-up with your primary doctor Prescriptions: New lidocaine 5 % adhesive patch,medicated 1 patch topical DAILY PRN (Reason: pain) Qty: 15 0RF Rx Instructions: leave on most painful area for up to 12 hrs No Action meloxicam 15 mg tablet 15 mg PO DAILY 30 Days Qty: 30 1RF albuterol sulfate 90 mcg/actuation HFA aerosol inhaler 2 inh inhalation Q4-6H PRN (Reason: shortness of breath or wheezing) 30 Days Qty: 8.5 4RF citalopram 20 mg tablet 20 mg PO DAILY 30 Days Qty: 30 3RF atorvastatin 20 mg tablet 20 mg PO BEDTIME Qty: 30 0RF prednisone 20 mg tablet 20 mg PO DAILY 12 Days Qty: 26 0RF Rx Instructions: Take 3 tablets for 5 days THEN; Take 2 tablets for 4 days THEN; Take 1 tablet for 3 days acetaminophen [Tylenol Extra Strength] 500 mg tablet 1,000 mg PO QID PRN (Reason: fever or pain) Qty: 14 0RF fexofenadine [Annel Allergy] 180 mg tablet 180 mg PO DAILY azithromycin 250 mg tablet See Rx Instructions PO .COMPLEX Qty: 6 0RF Rx Instructions: For 250 mg dose pack: take 500 mg today (day 1), then 250 mg for 4 days (days 2-5) PO prednisone 10 mg tablet 10 mg PO DAILY Qty: 16 0RF Rx Instructions: Take 4 tabs p.o. daily x4 days benzonatate 100 mg capsule 100 mg PO TID PRN (Reason: cough) Qty: 14 0RF esomeprazole magnesium [Nexium] 20 mg capsule,delayed release(DR/EC) 20 mg PO DAILY PRN Stand Alone Forms: Work/School Release Interventions: ED Discharge Assessment Last Done: 05/13/22 18:59 Discharge Date/Time: 05/13/22 19:05
[2022-05-13 16:08] VITALS: BP 145/86; PULSE 71; RESP 18; TEMP 36.6; O2SAT 100; BMI 37.0
--- NOTE | 2022-05-13 17:54 | ED.GENADULT ---
HPI - General Adult General Chief complaint: Extremity Problem Stated complaint: l arm pain leg swelling back pain Time Seen by Provider: 05/13/22 17:33 Source: patient, RN notes reviewed and old records reviewed Mode of arrival: ambulatory Limitations: no limitations History of Present Illness HPI narrative: 41-year-old female past medical history significant for prediabetes, senna, GERD, hyperlipidemia, left hip pain, left knee pain, plantar fasciitis, asthma who presents for evaluation multiple pain related complaints. Patient complains of left shoulder pain which is new as of last week She also complains of right foot pain and a lump to the foot which she noticed a few days ago. She also complains of chronic back pain which is unchanged, but she feels her primary doctor is not helping enough. Patient denies and falls, twisting injuries, heavy lifting. She rates her pain as at worst 8/10, sharp. She reports that her doctor has previously given her Oxycodone, tramadol, flexeril, meloxicam, gabapentin which she feels are too strong for her. Related Data Home Medications Medication Instructions Recorded Confirmed fexofenadine 180 mg tablet 180 mg PO DAILY 03/09/21 08/30/21 (Annel Allergy) esomeprazole magnesium 20 mg 20 mg PO DAILY PRN 08/30/21 08/30/21 capsule,delayed release (Nexium) Previous Rx's Medication Instructions Recorded acetaminophen 500 mg tablet 1,000 mg PO QID PRN fever or pain 06/05/21 (Tylenol Extra Strength) #14 tabs albuterol sulfate 90 mcg/actuation 2 inh inhalation Q4-6H PRN 08/28/21 aerosol inhaler shortness of breath or wheezing 30 days #8.5 grams meloxicam 15 mg tablet 15 mg PO DAILY 30 days #30 tabs 08/28/21 citalopram 20 mg tablet 20 mg PO DAILY 30 days #30 tabs 09/25/21 azithromycin 250 mg tablet See Rx Instructions PO .COMPLEX #6 12/26/21 tabs benzonatate 100 mg capsule 100 mg PO TID PRN cough #14 caps 12/26/21 prednisone 10 mg tablet 10 mg PO DAILY #16 tabs 12/26/21 prednisone 20 mg tablet 20 mg PO DAILY 12 days #26 tabs 01/26/22 atorvastatin 20 mg tablet 20 mg PO BEDTIME #30 tabs 02/08/22 lidocaine 5 % topical patch 1 patch topical DAILY PRN pain #15 05/13/22 ea Allergies Allergy/AdvReac Type Severity Reaction Status Date / Time Environmental Allergy Intermediate UNKNOWN Uncoded 05/13/22 16:12 (SEASONAL ALLERGIES) Review of Systems Constitutional: Constitutional: Reports as per HPI, Denies chills, Denies fatigue and Denies frequent falls Cardiovascular: Cardiovascular: Denies chest pain and Denies dyspnea Respiratory: Respiratory: Denies cough and Denies dyspnea Gastrointestinal: Gastrointestinal: Denies abdominal pain, Denies constipation and Denies vomiting Genitourinary: Genitourinary: Denies dysuria Musculoskeletal: Musculoskeletal: Reports as per HPI, Reports back pain, Denies deformity, Reports arthralgias, Reports joint swelling, Denies numbness and Reports stiffness Neurologic: Denies frequent falls, Denies numbness and Denies paresthesias Endocrine: Endocrine: Denies fatigue [facility] Past Medical History Medical History Asthma LLQ abdominal pain Numbness of left hand Surgical History History of tubal ligation Tubal ligation status Family History Family History Father Asthma Diabetes mellitus Mother HTN (hypertension) Maternal Grandmother No problems noted. Brother No problems noted. Brother No problems noted. Sister No problems noted. Sister No problems noted. Sister No problems noted. Sister No problems noted. Sister Colon cancer Son No problems noted. Daughter No problems noted. Daughter No problems noted. 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 Current occupational exposures/hazards: No Cognitive needs: No Hearing needs: No Vision needs: Yes (glasses) Physical Exam ED Vital Signs: Vital Signs - 24 hr 05/13/22 16:08 Temperature 97.9 F Pulse Rate 71 Respiratory Rate 18 Blood Pressure 145/86 H Pulse Oximetry 100 Oxygen Delivery Method Room Air BMI result Body Mass Index 37.0 Const General: healthy appearing, comfortable, no acute distress, alert and awake Nutritional Appearance: well nourished Orientation/consciousness: patient oriented x3 Eyes Eyelids: Yes eyelids normal Conjunctivae: conjunctivae normal Sclerae: sclerae normal Corneas: corneas normal Pupils: Equal, round and reactive pupils present EOM: EOMs intact bilaterally Resp Effort & Inspection: normal respiratory effort, able to speak in complete sentences, no audible wheezes and not labored Skin General skin exam: no rashes or lesions noted and elasticity normal Lesions: no lesions Rashes: no rashes Neuro General: patient oriented x3 Cranial nerves: Yes Equal, round and reactive pupils present Extrem Other: Patient in no visual or palpable deformity to the left upper extremity her left shoulder but she is tender to palpation of the left bicipital groove. No acromioclavicular joint tenderness. Patient has good range of motion to the left upper extremity. Patient has tenderness across the lumbar paraspinous region without focal vertebral tenderness or deformity. No right hip tenderness or deformity. The patient does have tenderness to the dorsal surface of the right foot at the area of the right 3rd MTP joint. The skin areas good tendon with a firm, nonmobile, 3 cm in diameter bony deformity. General: Yes full ROM and No no calf tenderness Medical Decision Making Medical Decision Making MDM Narrative: 41-year-old female with a past medical history significant for numerous pain complaints. She has tried multiple medications in the past. She reports that she has tried ibuprofen and Tylenol without relief, she has tried narcotics including oxycodone and tramadol infuse into strong for her. She has had intense in the past. The patient had an x-ray of the left shoulder ordered given this is new for her which did not show any abnormalities. The patient does have a palpable deformity and dorsal surface of the right foot. I will send her back to x-ray to evaluate for this, it is unclear if he has any calcified lesion, chronic deformity versus mass, although it is quite firm and does appear bony palpation. The patient does not want any strong oral pain medications, she has elected to try lidocaine patches to the left shoulder for discomfort. Patient had no warning sign/red flags for cauda equina syndrome for her chronic back pain. His numbness, tingling, weakness, bladder bowel incontinence. Differential Diagnosis Differential Diagnoses: The differential diagnosis associated with the presentation includes (Chronic pain, calcific tendinitis of left shoulder, right foot pain, contusion, foot fracture, sciatica, hip bursitis) Left shoulder pain, right foot pain Independent Interpretation I performed an independent interpretation of an: Plain X-Ray (No acute fracture or bony deformity of right foot) Radiology Impression Discussion of test interpretation with radiology: I have reviewed the radiologist's reading. Radiologist Impression: normal left shoulder xray Discharge Plan Discharge Clinical Impression: Shoulder tendonitis, Foot pain, right Patient Disposition: Home, Self-Care Additional Instructions: X-ray of her left shoulder did not show any bony abnormalities. Her pain is likely related to tendinitis. He may continue to use ibuprofen and Tylenol for pain. He may also try lidocaine patches topically to the area once per day. Follow-up with your primary doctor Prescriptions: New lidocaine 5 % adhesive patch,medicated 1 patch topical DAILY PRN (Reason: pain) Qty: 15 0RF Rx Instructions: leave on most painful area for up to 12 hrs No Action meloxicam 15 mg tablet 15 mg PO DAILY 30 Days Qty: 30 1RF albuterol sulfate 90 mcg/actuation HFA aerosol inhaler 2 inh inhalation Q4-6H PRN (Reason: shortness of breath or wheezing) 30 Days Qty: 8.5 4RF citalopram 20 mg tablet 20 mg PO DAILY 30 Days Qty: 30 3RF atorvastatin 20 mg tablet 20 mg PO BEDTIME Qty: 30 0RF prednisone 20 mg tablet 20 mg PO DAILY 12 Days Qty: 26 0RF Rx Instructions: Take 3 tablets for 5 days THEN; Take 2 tablets for 4 days THEN; Take 1 tablet for 3 days acetaminophen [Tylenol Extra Strength] 500 mg tablet 1,000 mg PO QID PRN (Reason: fever or pain) Qty: 14 0RF fexofenadine [Annel Allergy] 180 mg tablet 180 mg PO DAILY azithromycin 250 mg tablet See Rx Instructions PO .COMPLEX Qty: 6 0RF Rx Instructions: For 250 mg dose pack: take 500 mg today (day 1), then 250 mg for 4 days (days 2-5) PO prednisone 10 mg tablet 10 mg PO DAILY Qty: 16 0RF Rx Instructions: Take 4 tabs p.o. daily x4 days benzonatate 100 mg capsule 100 mg PO TID PRN (Reason: cough) Qty: 14 0RF esomeprazole magnesium [Nexium] 20 mg capsule,delayed release(DR/EC) 20 mg PO DAILY PRN Stand Alone Forms: Work/School Release
== END 2022-05-13 19:05 | disposition home or self-care (01) ==
PROVIDERS: Emergency Provider Emergency Medicine; PCP Family Medicine
DX: M75.92 Shoulder lesion, unspecified, left shoulder (principal); M79.671 Pain in right foot; E78.00 Pure hypercholesterolemia, unspecified; Z79.02 Long term (current) use of antithrombotics/antiplatelets; Z79.899 Other long term (current) drug therapy
CPT/HCPCS: 73030; 73630; 99282; 99283

== ENCOUNTER → 2022-06-10 14:10 | Outpatient (BNVA) | payer OTHER, SELFPAY | PROVIDERS: PCP Hospitalist; Visit Provider Obstetrics & Gynecology | DX: N95.0 Postmenopausal bleeding (principal) | CPT/HCPCS: 99212 ==

== ENCOUNTER 2022-06-24 13:01 | Outpatient (REF) | payer OTHER, SELFPAY ==
--- NOTE | ~2022-06-24 | US_ITS ---
EXAMINATION: US PELVIS CLINICAL INFORMATION: 41-year-old with postmenopausal bleeding, although patient reports a menstrual period 2 weeks ago. COMPARISON: None available. TECHNIQUE: Ultrasound of the pelvis is performed using both transabdominal and transvaginal transducers along with Doppler. Transvaginal imaging is performed due to inadequate visualization transabdominally. FINDINGS: Uterus: The uterus is anteverted and measures 9.2 x 3.2 x 4.8 cm. Intramural right uterine fibroid measures 2.2 x 2 0.5 to 2.1 cm. The double wall endometrial thickness is 9 mm. The uterus is smooth in contour and has normal myometrial echogenicity. Adnexa: Both ovaries are visualized. There is normal color flow to the adnexa. There is no ovarian torsion. There is no pelvic ascites or fluid collection. Right ovary measures 3.2 x 1.5 x 1.4 cm. There is a 3 mm calcification in the right ovary versus echogenic focus of unclear etiology. Left ovary measures 2.1 x 1.3 x 2.0 cm. US/US pelvic and transvaginal IMPRESSION: 1. Endometrium measures 9 mm which is greater than expected in a patient who is truly postmenopausal. However patient reports having a menstrual period 2 weeks ago at the age of 41. Confirm menopausal status if patient is truly menopausal then an endometrial biopsy is warranted. 2. Right intramural uterine fibroid measures 2.2 cm. 3. Right ovarian 3 mm calcification versus echogenic focus of unclear etiology. Recommend short interval follow-up in 6-8 weeks to assess for resolution.
== END 2022-06-24 13:02 | disposition home or self-care (01) ==
LOC: HO.US 13:01
PROVIDERS: PCP Hospitalist; Visit Provider Obstetrics & Gynecology
DX: N95.0 Postmenopausal bleeding (principal)
CPT/HCPCS: 76830; 76856

== ENCOUNTER 2022-07-29 13:49 | Outpatient (REF) | payer OTHER, SELFPAY | END 2022-07-29 13:50 | disposition home or self-care (01) | LOC: HO.LNP 13:49 | PROVIDERS: PCP Hospitalist; Visit Provider Obstetrics & Gynecology | DX: N95.0 Postmenopausal bleeding (principal); N83.299 Other ovarian cyst, unspecified side; D25.9 Leiomyoma of uterus, unspecified | CPT/HCPCS: 58100; 88305; 99212 ==

== ENCOUNTER 2022-07-29 14:54 | Outpatient (REF) | payer OTHER, SELFPAY ==
[2022-07-31 11:59] LABS: CA-125 6 U/mL (<35)
== END 2022-07-29 14:55 | disposition home or self-care (01) ==
LOC: HO.LAB 14:54
PROVIDERS: PCP Family Medicine; Visit Provider Obstetrics & Gynecology
DX: N83.299 Other ovarian cyst, unspecified side (principal)
CPT/HCPCS: 36415; 86304

== ENCOUNTER → 2022-08-27 09:15 | Outpatient (BNVA) | payer OTHER, SELFPAY | PROVIDERS: PCP Family Medicine; Visit Provider Obstetrics & Gynecology | DX: N95.0 Postmenopausal bleeding (principal); Z98.890 Other specified postprocedural states | CPT/HCPCS: 99212 ==

== ENCOUNTER 2022-09-20 12:01 | Outpatient (REF) | payer OTHER, SELFPAY ==
--- NOTE | ~2022-09-20 | MM_ITS ---
EXAMINATION: MM SCREENING DIGITAL BREAST TOMOSYNTHESIS, BILATERAL CLINICAL INFORMATION: Screening. Asymptomatic. The lifetime risk of breast cancer based on the Tyrer-Cuzick Model is 7%. COMPARISON: Mammography: 09/13/2021; outside mammography 04/23/2012 ([place]). TECHNIQUE: Digital breast tomosynthesis is performed in both the craniocaudal and mediolateral oblique views along with computer-aided detection (CAD). Synthesized 2D images are generated from the tomosynthesis. FINDINGS: There are scattered areas of fibroglandular density (ACR BI-RADS breast composition Category b). There are no significant masses, abnormal calcifications, or other abnormalities. Parenchymal pattern is similar to prior studies. There is no developing density or architectural abnormality. The axilla and skin contours are unremarkable. No significant changes. MM/MM tomosynthesis screening BI IMPRESSION: No mammographic evidence of malignancy. ASSESSMENT: BI-RADS 1: Negative RECOMMENDATION: Routine annual mammography screening. This patient's information was entered into a reminder system with a target due date for their next mammogram.
== END 2022-09-20 12:02 | disposition home or self-care (01) ==
LOC: HO.MAMMO 12:01
PROVIDERS: PCP Family Medicine; Visit Provider Family Medicine
DX: Z12.31 Encounter for screening mammogram for malignant neoplasm of breast (principal)
CPT/HCPCS: 77063; 77067

== ENCOUNTER 2022-10-29 10:59 | Outpatient (REF) | payer OTHER, SELFPAY ==
--- NOTE | ~2022-10-29 | US_ITS ---
EXAMINATION: US PELVIS CLINICAL INFORMATION: Ovarian cyst. COMPARISON: Pelvic ultrasound 06/24/2022. TECHNIQUE: Ultrasound of the pelvis is performed using both transabdominal and transvaginal transducers along with Doppler. Transvaginal imaging is performed due to inadequate visualization transabdominally. FINDINGS: Uterus: The uterus is anteverted and measures 8.4 x 4.6 x 6.0 cm. The double wall endometrial thickness is 6 mm. The uterus is smooth in contour and has normal myometrial echogenicity. 2.5 cm right fundal fibroid. 1.5 cm right body fibroid. Adnexa: Both ovaries are visualized. There is normal color flow to the adnexa. There is no ovarian torsion. There is no pelvic ascites or fluid collection. Right ovary measures 3.4 x 1.8 x 2.6 cm. Volume 5.4 mL. The previously seen echogenic focus in the right ovary is no longer seen. Left ovary measures 1.9 x 1.2 x 1.6 cm. Volume 1.8 mL. US/US pelvic and transvaginal IMPRESSION: Normal ovaries. Fibroid uterus appear
== END 2022-10-29 11:00 | disposition home or self-care (01) ==
LOC: HO.US 10:59
PROVIDERS: PCP Family Medicine; Visit Provider Obstetrics & Gynecology
DX: D26.9 Other benign neoplasm of uterus, unspecified (principal); N83.299 Other ovarian cyst, unspecified side
CPT/HCPCS: 76830; 76856

== ENCOUNTER 2022-11-07 12:41 | Outpatient (AMB) | payer OTHER, SELFPAY ==
[2022-11-07 12:58] VITALS: BP 122/72; PULSE 78; O2SAT 98; BMI 39.3
--- NOTE | 2022-11-07 12:58 | MHC.PC.OV ---
Vital Signs 11/07/22 12:58 Height 5 ft Weight 201 lb BMI 39.3 BP 122/72 Blood Pressure Location Lt brachial Position Sitting Pulse 78 Pulse Source Pulse Oximeter Pulse Oximetry (%) 98 Oxygen Delivery Method Room Air Intake Visit Reasons: F/U pain and medication Intake Note: Patient is here to follow up on medication, Celebrex, but she can't take it, it upsets her stomach. She complains of left sided leg and hip pain. She is worried about spot on her leg. Allergies Environmental Allergy (Intermediate, Uncoded 11/07/22 13:02) UNKNOWN (SEASONAL ALLERGIES) Tobacco use date assessed: 11/07/22 Dental Screening Dental Screen Date: 11/07/22 Did you have a dental visit in the last 12 months?: No Did you have a dental problem in the last 6 months where you did not have access to dental care?: No Was dental information given to patient?: No HPI F/U pain and medication HPI Details 41 y/o female presents to f/u meds. She reports Celebrex has been upsetting her stomach. She has complaints of L sided leg and hip pain today. She reports she also has a spot on her leg she is concerned about. She reports polyarthalgia/fibromyalgia. Hx of pre-diabetes. A1c today 11/07/22 is 5.5%. Daughter had been diagnosed with cancer - pt reports depression which she states has exacerbated her joint pain. [facility] Medical History Asthma LLQ abdominal pain Numbness of left hand Surgical History History of tubal ligation Tubal ligation status Family History Father Asthma Diabetes mellitus Mother HTN (hypertension) Maternal Grandmother No problems noted. Brother No problems noted. Brother No problems noted. Sister No problems noted. Sister No problems noted. Sister No problems noted. Sister No problems noted. Sister Colon cancer Son No problems noted. Daughter No problems noted. Daughter No problems noted. 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 Current occupational exposures/hazards: No Cognitive needs: No Hearing needs: No Vision needs: Yes (glasses) Female Reproductive History Menstrual Age of Menarche: 11 Questionnaire Thrive Questionnaire Date Thrive assessed: 05/16/22 Review of Systems Const Denies chills, Denies fatigue, Denies fever(s), Denies headache(s) and Denies weakness ENT Denies dizziness and Denies headache(s) Card Denies chest pain, Denies lightheadedness, Denies dyspnea and Denies other (Palpitations) Resp Denies cough, Denies dyspnea, Denies wheezing and Denies other ( shortness of breath) Musc Denies numbness and Denies tingling Neuro Denies dizziness, Denies headache(s), Denies numbness, Denies tingling, Denies paresthesias and Denies weakness Psych Denies anxiety and Denies depression Endo Denies fatigue Aller/Immun Denies wheezing Physical exam (Primary Care) Vital Signs: Last Vital Signs Pulse 78 11/07/22 12:58 BP 122/72 11/07/22 12:58 Pulse Ox 98 11/07/22 12:58 Oxygen Delivery Method Room Air 11/07/22 12:58 BMI result Body Mass Index 39.3 Tobacco/Smoking Status: Tobacco use Status Tobacco use date assessed 11/07/22 11/07/22 13:06 Patient Tobacco Use Status Current everyday Tobacco 11/07/22 13:06 Tobacco use type Cigarette 11/07/22 13:06 e-Cigarette/Vaping Use Never Used 11/07/22 13:06 Thrive Assessment: Date of Thrive Assessment Date Thrive assessed 05/16/22 11/07/22 13:06 Const General: no acute distress and well developed Nutritional Appearance: well nourished and obese Orientation/consciousness: patient oriented x3 HENMT Head: Yes normocephalic and Yes atraumatic Eyes General: appearance normal, both eyes and all related structures Pupils: Equal, round and reactive pupils present EOM: EOMs intact bilaterally Resp Effort & Inspection: normal respiratory effort Auscultation: clear to auscultation bilaterally Cardio Rate: regular rate Rhythm: regular rhythm Heart sounds: S1 normal heart sound present, S2 normal heart sound present, no gallops, no murmurs and no rubs Neuro General: patient oriented x3 and gait normal Cranial nerves: Yes Equal, round and reactive pupils present Psych Affect: normal affect Assessment and Plan Assessment & Plan (1) Polyarthralgia: Code(s): M25.50 - Pain in unspecified joint Plan: Polyarthralgia as well as generalized pain. This may represent fibromyalgia however should rule out other causes 1st. Check labs She is on duloxetine which helps. Celecoxib has been causing some stomach trouble but she has on a fairly large does and I will decrease that. Had been on gabapentin in the past and we can resume it (2) Pain, generalized: Code(s): R52 - Pain, unspecified Plan: As above (3) Pre-diabetes: Code(s): R73.03 - Prediabetes Plan: A1c 5.5% Continue diet low in sugars and starches (4) Left hip pain: Code(s): M25.552 - Pain in left hip Plan: As above and also use lidocaine patches (5) Depression with anxiety: Code(s): F41.8 - Other specified anxiety disorders Plan: She is on a fairly low dose of duloxetine and we will increase this Also has some acute adjustment disorder as her daughter has been diagnosed with cancer Orders: Orders Complete Blood Count Auto Diff Today M25.50 - Pain in unspecified joint, Z00.00 - Encounter for general adult medical examination without abnormal findings Cyclic Citrullinated Peptide Today M25.50 - Pain in unspecified joint Comprehensive Met. Panel Today M25.50 - Pain in unspecified joint CRP High Sensitivity Today M25.50 - Pain in unspecified joint Rheumatoid Factor Today M25.50 - Pain in unspecified joint Erythrocyte Sedimentation Rate Today M25.50 - Pain in unspecified joint NIGEL Reflex Titer and Pattern Today M25.50 - Pain in unspecified joint AMB Hemoglobin A1c Today Z13.9 - Encounter for screening, unspecified Medications: New gabapentin 300 mg PO BID 30 days 60 caps 2RF Changed From duloxetine 20 mg PO BID 60 caps 2RF M79.7 - Fibromyalgia To duloxetine 40 mg PO BID 30 days 60 caps 2RF M79.7 - Fibromyalgia From celecoxib (Celebrex) 200 mg (2 x 100 mg) PO DAILY 60 caps 2RF To celecoxib (Celebrex) 100 mg PO DAILY 30 days 30 caps 2RF Coding Level of Care Code Est Pt Level 4 (15301) Diagnoses Polyarthralgia M25.50 Pain, generalized R52 Pre-diabetes R73.03 Left hip pain M25.552 Depression with anxiety F41.8
== END 2022-11-07 14:05 | disposition home or self-care (01) ==
PROVIDERS: PCP Family Medicine; Visit Provider Family Medicine
DX: M25.50 Pain in unspecified joint (principal); R73.03 Prediabetes; M25.552 Pain in left hip; F41.8 Other specified anxiety disorders; Z13.9 Encounter for screening, unspecified
CPT/HCPCS: 83036; 99214

== ENCOUNTER 2022-11-12 10:34 | Outpatient (AMB) | payer OTHER, SELFPAY ==
--- NOTE | 2022-11-12 11:12 | MHC.OFFVIS ---
Intake Vital Signs 11/12/22 11:13 Height 5 ft Weight 201 lb BMI 39.3 BP 120/70 Intake Visit Reasons: Ultrasound follow up [employer] Required: No Accompanied by: Friend Allergies Environmental Allergy (Intermediate, Uncoded 11/12/22 11:14) UNKNOWN (SEASONAL ALLERGIES) Post menopausal: No HPI HPI Comments History of Present Illness Details Presenting for follow-up ultrasound with no complaints. No vaginal bleeding, pelvic pressure or pain. Pelvic ultrasound done on 10/29/2022 showed the following: Uterus: The uterus is anteverted and measures 8.4 x 4.6 x 6.0 cm. The double wall endometrial thickness is 6 mm.? The uterus is smooth in contour and has normal myometrial echogenicity. ? 2.5 cm right fundal fibroid. 1.5 cm right body fibroid. Adnexa: Both ovaries are visualized. There is normal color flow to the adnexa. There is no ovarian torsion.? There is no pelvic ascites or fluid collection. Right ovary measures 3.4 x 1.8 x 2.6 cm. Volume 5.4 mL. The previously seen echogenic focus in the right ovary is no longer seen. Left ovary measures 1.9 x 1.2 x 1.6 cm. Volume 1.8 mL Previous ultrasound done on 06/24/22 showed the following: IMPRESSION: 1.? Endometrium measures 9 mm which is greater than expected in a patient who is truly postmenopausal. However patient reports having a menstrual period 2 weeks ago at the age of 41. Confirm menopausal status if patient is truly menopausal then an endometrial biopsy is warranted. 2.? Right intramural uterine fibroid measures 2.2 cm. 3.? Right ovarian 3 mm calcification versus echogenic focus of unclear etiology. Recommend short interval follow-up in 6-8 weeks to assess for resolution. PFSH Medical History Asthma LLQ abdominal pain Numbness of left hand Surgical History History of tubal ligation Tubal ligation status Family History Father Asthma Diabetes mellitus Mother HTN (hypertension) Maternal Grandmother No problems noted. Brother No problems noted. Brother No problems noted. Sister No problems noted. Sister No problems noted. Sister No problems noted. Sister No problems noted. Sister Colon cancer Son No problems noted. Daughter No problems noted. Daughter No problems noted. 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 Current occupational exposures/hazards: No Cognitive needs: No Hearing needs: No Vision needs: Yes (glasses) Female Reproductive History Menstrual Age of Menarche: 11 control method: permanent sterilization Date of last pap smear: 08/30/21 Review of Systems Const All systems reviewed & are unremarkable except as noted in HPI and below Reports as per HPI and Reports no additional complaints GI Reports no additional complaints Reports no additional complaints Physical Exam Vital Signs: BMI result Body Mass Index 39.3 Assessment & Plan Assessment & Plan (1) Complex ovarian cyst: Code(s): N83.299 - Other ovarian cyst, unspecified side Plan: Discussed with the patient ultrasound findings showing the previously identified complex cyst has resolved. The patient was instructed to call if symptoms recur. All questions were answered the patient verbalized understanding. (2) Uterine myoma: Code(s): D25.9 - Leiomyoma of uterus, unspecified Plan: Discussed with the patient the findings on pelvic ultrasound & the risk of myosarcoma; discussed with the patient the options of treatment including expectant management versus hysterectomy; the pros and cons, risks benefits of each approach were discussed with the patient including the fact that in cases of myosarcoma, surgical treatment can lead to early diagnosis and positively affects the prognosis; after further discussion, the patient decided to proceed with expectant management. Will repeat pelvic ultrasound periodically. Instructions given to patient to call in case any of the following occurs: pressure symptoms, abnormal uterine bleeding, pelvic pain; and to schedule a future office follow-up appointment for reassessment and to order a repeat ultrasound . All questions answered, the patient verbalized understanding and agreed with the plan . Coding Level of Care Code Est Pt Level 3 (73213) Diagnoses Complex ovarian cyst N83.299 Uterine myoma D25.9
[2022-11-12 11:13] VITALS: BP 120/70; BMI 39.3
== END 2022-11-12 11:40 | disposition home or self-care (01) ==
LOC: HO.HWS 10:34
PROVIDERS: PCP Family Medicine; Visit Provider Obstetrics & Gynecology
DX: N83.299 Other ovarian cyst, unspecified side (principal); D25.9 Leiomyoma of uterus, unspecified
CPT/HCPCS: 99213

== ENCOUNTER → 2022-11-12 10:34 | Outpatient (BNVA) | payer OTHER, SELFPAY | PROVIDERS: PCP Family Medicine; Visit Provider Obstetrics & Gynecology | DX: N83.299 Other ovarian cyst, unspecified side (principal); D25.9 Leiomyoma of uterus, unspecified | CPT/HCPCS: 99212 ==

== ENCOUNTER 2022-12-07 07:19 | Emergency (ER) | payer OTHER, SELFPAY ==
--- NOTE | ~2022-12-07 | CT_ITS ---
EXAMINATION: CT ABDOMEN AND PELVIS WITHOUT CONTRAST CLINICAL INFORMATION: Abdominal pain. COMPARISON: Ultrasound pelvis 10/29/2022 TECHNIQUE: Multidetector volumetric imaging was performed from the superior aspect of the liver through the pubic symphysis. Sagittal and coronal reformatted images were obtained on the technologist's workstation. This CT examination was performed using dose optimization techniques as appropriate, variously including the following: *Automated exposure control *Adjustment of mA and/or kV according to patient size (this includes techniques or standardized protocols for targeted exams where dose is matched to indication/reason for exam; i.e. extremities or head) *Use of iterative reconstruction technique DLP: 607 mGy-cm FINDINGS: LUNG BASES: The lung bases are clear. LIVER, GALLBLADDER, AND BILIARY TREE: The liver is normal in size, shape, and attenuation. No focal hepatic lesion or biliary ductal dilatation is present. The gallbladder is unremarkable with no evidence of radiopaque gallstones, gallbladder wall thickening, or obvious pericholecystic inflammatory changes. PANCREAS: Unremarkable. SPLEEN: Unremarkable. ADRENAL GLANDS: Unremarkable. KIDNEYS AND URETERS: The kidneys are normal in size, shape, and attenuation. No hydronephrosis, hydroureter, or calculi seen. No perinephric stranding. BLADDER: Unremarkable. GASTROINTESTINAL TRACT: There is scattered stool in the right colon and terminal ileum without distention or mural thickening. There is mild fat stranding seen in left pelvis adjacent to the left parametrium and sigmoid colon. Minimal mural thickening involving the sigmoid colon is noted. The descending colon is normal. No free air or free fluid. ABDOMINAL WALL: There is a small umbilical hernia containing fat. LYMPH NODES: Normal. VASCULAR: Unremarkable. PELVIC VISCERA: The uterus is anteverted with with mild enlargement of the fundus. Known fibroid. Scattered phleboliths are seen in the pelvis. No adnexal mass or free fluid. There is fat stranding seen in the left pelvis adjacent to the sigmoid colon and left parametrium OSSEOUS STRUCTURES: Unremarkable. CT/CT abdomen pelvis wo IV con IMPRESSION: Mild fat stranding in the left pelvis adjacent to the sigmoid colon and parametrium. Also noted is minimal mural thickening of sigmoid colon. Question sigmoid colitis or parametrial inflammatory process. No radiopaque urolith or hydroureteronephrosis on either side. Fleischner guidelines were followed.
[2022-12-07 07:21] VITALS: BP 137/87; PULSE 83; RESP 18; TEMP 36.6; O2SAT 99; BMI 32.6
--- NOTE | 2022-12-07 07:47 | PC.NURSE ---
pt a&ox3. respirations even and unlabored. pt reports lower left quadrant pain since friday with burning in urination. pt reports the abdominal pain has increased to all 4 quadrants. pt reports feeling incomplete with urination.pt denies blood in urine at this time. pt denies nausea, vomiting, fever and chills. pt abdomen soft but tender to touch in the epigastric region, upper and lower right quadrants. abdomonal sounds active on all 4 quadrants.
--- NOTE | 2022-12-07 07:52 | ED.FEMALEGU ---
HPI - Female Genitourinary General Chief complaint: Urogenital-Female Stated complaint: urine bladder Time Seen by Provider: 12/07/22 07:46 Source: patient Mode of arrival: ambulatory Limitations: no limitations History of Present Illness HPI Narrative: 41-year-old female came in for evaluation of suprapubic pain for 3 days pain started in the left lower quadrant then moved to suprapubic and right lower quadrant pain is constant get worse with urination, patient has painful urination with burning sensation, frequency, and urgency to urinate. Sexually active with 1 partner, no risk for STD, no vaginal bleeding or vaginal discharge. Abdominal surgical history is significant for tubal ligation. Normal bowel movement last movement was yesterday no blood in the urine or stool. Related Data Home Medications Medication Instructions Recorded Confirmed fexofenadine 180 mg tablet 180 mg PO DAILY 03/09/21 08/30/21 (Annel Allergy) esomeprazole magnesium 20 mg 20 mg PO DAILY PRN 08/30/21 08/30/21 capsule,delayed release (Nexium) Previous Rx's Medication Instructions Recorded acetaminophen 500 mg tablet 1,000 mg (2 x 500 mg) PO QID PRN 06/05/21 (Tylenol Extra Strength) fever or pain #14 tabs albuterol sulfate 90 mcg/actuation 2 inh inhalation Q4-6H PRN 08/28/21 aerosol inhaler shortness of breath or wheezing 30 days #8.5 grams atorvastatin 20 mg tablet 20 mg PO BEDTIME #30 tabs 02/08/22 lidocaine 5 % topical patch 1 patch topical DAILY PRN pain #30 05/16/22 ea trazodone 50 mg tablet 50 mg PO BID PRN for anxiety #60 09/18/22 tabs celecoxib 100 mg capsule (Celebrex) 100 mg PO DAILY 30 days #30 caps 11/07/22 duloxetine 40 mg capsule,delayed 40 mg PO BID 30 days #60 caps 11/07/22 release gabapentin 300 mg capsule 300 mg PO BID 30 days #60 caps 11/07/22 amoxicillin 500 mg-potassium 1 tab PO BID #14 tabs 12/07/22 clavulanate 125 mg tablet (Augmentin) Allergies Allergy/AdvReac Type Severity Reaction Status Date / Time Environmental Allergy Intermediate UNKNOWN Uncoded 12/07/22 07:21 (SEASONAL ALLERGIES) Review of Systems Review of Systems: All other systems are reviewed and are negative Constitutional: Reports as per HPI and Reports no additional constitutional complaints Eyes: Reports as per HPI and Reports no additional eye complaints Reports system reviewed and no additional complaints, except as documented Cardiovascular: Reports as per HPI and Reports no additional cardiovascular complaints Respiratory: Reports as per HPI and Reports no additional respiratory complaints Gastrointestinal: Reports as per HPI and Reports no additional gastrointestinal complaints Genitourinary: Reports no additional female genitourinary complaints Musculoskeletal: Reports no additional musculoskeletal complaints Skin/Breast: Reports system reviewed and no additional complaints, except as docu Psychiatric: Reports no additional psychiatric complaints Endocrine: Reports no additional endocrine complaints Hematologic/Lymphatic: Reports no additional hematologic/lymphatic complaints Allergic/Immunologic: Reports no additional allergic/immunologic complaints Reports system reviewed and no additional complaints, except as documented and Reports Abnormal speech present [facility] Past Medical History Medical History LLQ abdominal pain Numbness of left hand Asthma Surgical History Tubal ligation status History of tubal ligation Family History Family History Father Asthma Diabetes mellitus Mother HTN (hypertension) Maternal Grandmother No problems noted. Brother No problems noted. Brother No problems noted. Sister No problems noted. Sister No problems noted. Sister No problems noted. Sister No problems noted. Sister Colon cancer Son No problems noted. Daughter No problems noted. Daughter No problems noted. 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 Blood pressure normal. Heart rate normal. Respiration rate normal. Temperature normal. Oxygen saturation normal. Appearance: Alert. Oriented X3. No acute distress. Head: Normal external exam. Normocephalic. Atraumatic. No Barrientos signs noted. No raccoon eyes noted Eyes: PERRLA. EOMI. Conjunctiva and sclera normal. Eyelids normal. ENT: TM's Normal. Pharynx normal. Uvula midline. Moist mucous membranes. No trismus noted. No drooling noted. No muffled voice noted. Neck: Normal inspection. Neck supple. FROM. No adenopathy. Thyroid Normal. No meningeal signs. No neck mass noted. CVS: Normal heart rate and rhythm. Heart sound normal. No murmurs noted. Pulses normal throughout. Respiratory: No respiratory distress. Painless inspiration. Breath sounds normal. No wheezes/rales/rhonchi noted. Chest nontender. No accessory muscle usage noted or decreased air movement noted. Abdomen: Soft , suprapubic tenderness, no rebound tenderness, no guarding, mild right lower quadrant tenderness. Bowel sounds normal in all 4 quadrants. No distention noted. No organomegaly noted. No visible injury noted. Back: No CVA tenderness. Full range of motion noted. Skin: Skin warm and dry. Normal skin color. Normal skin turgor. No rashes/lesions/lacerations noted. Extremities: No lower extremity edema. Extremities exhibit normal range of motion. Extremities nontender. Neuro: Oriented X 3. Cranial nerve exam: II-XII are grossly intact No motor deficit. No sensory deficit. Reflexes normal. Course Course Course Narrative: 41-year-old female presented with 1 day of left lower abdominal pain now at suprapubic pain, unremarkable labs no leukocytosis, CT is concern of mild colitis adjustment to the sigmoid colon. Patient reported that there is strong family history of colon cancer and has not had screening colonoscopy yet, patient was instructed to discuss this with her PCP and patient was given GI information to contact. Will start the patient on Augmentin for nonspecific colitis. Medications Administered Discontinued Medications Generic Name Dose Route Start Last Admin Trade Name Mohsenq PRN Reason Stop Dose Admin Sodium Chloride 1,000 mls @ 999 mls/hr 12/07/22 07:51 12/07/22 09:29 Ns IV 12/07/22 08:51 Infused .Q1H1M ONE Infusion Ketorolac Tromethamine 30 mg 12/07/22 07:51 12/07/22 08:11 Ketorolac Tromethamine 30 Mg/Ml Vial IVPUSH 12/07/22 07:52 30 mg ONCE ONE Administration Medical Decision Making Differential Diagnosis Differential Diagnoses: The differential diagnosis associated with the presentation includes (UTI, cystitis, colitis, diverticulitis, of pancreatitis, electrolyte abnormality, severe anemia, STD.) Admission/Observation Consideration of admission/observation: Escalation of care including admission/observation considered Lab Data MDM Lab Attestation statement: I reviewed the patient's lab results. 12/07/22 08:01 12/07/22 08:01 Labs: Lab Results 12/07/22 12/07/22 Range/Units 07:58 08:01 WBC 7.9 (4.8-10.8) X10*3/uL RBC 4.45 (4.20-5.50) X10*6/uL Hgb 13.8 (12.0-16.0) g/dl Hct 40.4 (37.0-47.0) % MCV 90.8 (80.0-98.0) fL MCH 31.0 (27.0-33.0) pg MCHC 34.2 (31.0-35.0) g/dl RDW 11.6 (11.0-16.0) % Plt Count 180 (160-400) X10*3/uL MPV 11.4 (9.4-12.3) fL Immature Gran % (Auto) 0.3 (0.0-0.4) % Neut % (Auto) 68.1 (45-73) % Lymph % (Auto) 23.8 (20-40) % Hamlin % (Auto) 6.7 (2-11) % Eos % (Auto) 0.8 (0-4) % Baso % (Auto) 0.3 (0-2) % Lymph # (Auto) 1.9 (1.2-4.9) X10*3/uL Hamlin # (Auto) 0.5 (0.1-1.2) X10*3/uL Eos # (Auto) 0.1 (0.0-0.4) X10*3/uL Baso # (Auto) 0.0 (0.0-0.2) X10*3/uL Abs Immat Gran (auto) 0.02 (0.00-0.03) X10*3/uL Absolute Neuts (auto) 5.4 (2.0-8.3) x10*3/uL Absolute Nucleated RBC 0.000 (0.0-0.012) X10*3/uL Nucleated RBC % (auto) 0.0 (0.0-0.2) /100WBC Sodium 140 (135-145) mmol/L Potassium 4.0 (3.3-5.1) mmol/L Chloride 108 (96-108) mmol/L Carbon Dioxide 24 (22-29) mmol/L Anion Gap 12 (12-20) BUN 10 (9-16) mg/dL Creatinine 0.72 (0.5-1.4) mg/dL Estim Creat Clear Calc 111.0 Estimated GFR > 60 Random Glucose 101 (60-115) mg/dL Calcium 10.1 D (8.4-10.2) mg/dL Total Bilirubin 0.4 (0.0-1.0) mg/dL Direct Bilirubin 0.1 (0.0-0.5) mg/dL AST 18 (5-31) U/L ALT 18 (0-31) U/L Alkaline Phosphatase 79 (39-117) U/L Total Protein 7.5 (6.5-8.0) g/dL Albumin 4.4 (3.5-5.0) g/dL Lipase 16 (8-78) U/L Urine Color Yellow Urine Appearance Cloudy Urine pH 5.5 (5.0-9.0) Ur Specific Chalmers 1.025 (1.005-1.025) Urine Protein Negative (Neg-Trace) mg/dL Urine Glucose (UA) Negative (Negative) mg/dL Urine Ketones Negative (Negative) mg/dL Urine Blood Negative (Negative) Urine Nitrite Negative (Negative) Ur Leukocyte Esterase Negative (Negative) Urine Test NEGATIVE (NEGATIVE) Independent Interpretation I performed an independent interpretation of an: CT Scan (Abdomen and pelvis:Mild fat stranding in the left pelvis adjacent to the sigmoid colon and parametrium. Also noted is minimal mural thickening of sigmoid colon. Question sigmoid colitis or parametrial inflammatory process. No radiopaque urolith or hydroureteronephrosis on either side. ) Radiology Impression Discussion of test interpretation with radiology: I have reviewed the radiologist's reading. Discharge Plan Discharge Clinical Impression: Colitis Patient Disposition: Home, Self-Care Instructions: Colitis (ED) Prescriptions: New amoxicillin-pot clavulanate [Augmentin] 500-125 mg tablet 1 tab PO BID Qty: 14 0RF No Action albuterol sulfate 90 mcg/actuation HFA aerosol inhaler 2 inh inhalation Q4-6H PRN (Reason: shortness of breath or wheezing) 30 Days Qty: 8.5 4RF atorvastatin 20 mg tablet 20 mg PO BEDTIME Qty: 30 0RF trazodone 50 mg tablet 50 mg PO BID PRN (Reason: for anxiety) Qty: 60 2RF acetaminophen [Tylenol Extra Strength] 500 mg tablet 1,000 mg PO QID PRN (Reason: fever or pain) Qty: 14 0RF fexofenadine [Annel Allergy] 180 mg tablet 180 mg PO DAILY duloxetine 40 mg capsule,delayed release(DR/EC) 40 mg PO BID 30 Days Qty: 60 2RF celecoxib [Celebrex] 100 mg capsule 100 mg PO DAILY 30 Days Qty: 30 2RF gabapentin 300 mg capsule 300 mg PO BID 30 Days Qty: 60 2RF lidocaine 5 % adhesive patch,medicated 1 patch topical DAILY PRN (Reason: pain) Qty: 30 1RF Rx Instructions: leave on most painful area for up to 12 hrs esomeprazole magnesium [Nexium] 20 mg capsule,delayed release(DR/EC) 20 mg PO DAILY PRN Referrals: Jose De Jesus Ye MD [Primary Care Provider] - Alis Wilcox MD [Physician] - Stand Alone Forms: Work/School Release
[2022-12-07 08:08] LABS: MANUAL DIFF FLAG NO
[2022-12-07] MEDS: 0.9 % Sodium Chloride 1,000 ML 999 ML IV (08:09)
[2022-12-07 08:10] LABS: Appearance Urine Cloudy; Color Urine Yellow; Glucose Urine UA Negative (Negative); Leukocyte Esterase Urine Negative (Negative); Nitrite Urine Negative (Negative); PH 5.5 (5.0-9.0); Specific Gravity - Urine 1.025 (1.005-1.025); Urine Blood Negative (Negative); Urine Ketones Negative (Negative); Urine Protein Negative (Neg-Trace)
[2022-12-07 08:11] LABS: Basophils Percent Auto 0.3 % (0-2); Eosinophils Absolute Auto 0.1 X10*3/uL (0.0-0.4); Eosinophils Percent Auto 0.8 % (0-4); Hematocrit 40.4 % (37.0-47.0); Hemoglobin 13.8 g/dl (12.0-16.0); Imm Gran Abs Auto 0.02 X10*3/uL (0.00-0.03); Imm Gran Pct Auto 0.3 % (0.0-0.4); Lymphocytes Absolute Auto 1.9 X10*3/uL (1.2-4.9); Lymphocytes Percent Auto 23.8 % (20-40); Mean Corpuscular HGB Conc 34.2 g/dl (31.0-35.0); Mean Corpuscular Volume 90.8 fL (80.0-98.0); Mean Platelet Volume 11.4 fL (9.4-12.3); Monocytes Absolute Auto 0.5 X10*3/uL (0.1-1.2); Monocytes Percent Auto 6.7 % (2-11); Neutrophils Absolute Auto 5.4 x10*3/uL (2.0-8.3); Neutrophils Percent Auto 68.1 % (45-73); Platelet Count 180 X10*3/uL (160-400); Red Blood Count 4.45 X10*6/uL (4.20-5.50); Red Cell Distribution Width 11.6 % (11.0-16.0); White Blood Count 7.9 X10*3/uL (4.8-10.8)
[2022-12-07] MEDS: Ketorolac Tromethamine 30 MG/ML VIAL IVPUSH (08:11)
[2022-12-07 08:13] LABS: UPreg QC Valid YES; Urine Pregnancy NEGATIVE (NEGATIVE)
[2022-12-07 08:26] LABS: Alanine Aminotransferase 18 U/L (0-31); Albumin Level 4.4 g/dL (3.5-5.0); Alkaline Phosphatase 79 U/L (39-117); Anion Gap 12 (12-20); Aspartate Amino Transferase 18 U/L (5-31); Bilirubin Direct 0.1 mg/dL (0.0-0.5); Bilirubin Total 0.4 mg/dL (0.0-1.0); Blood Urea Nitrogen 10 mg/dL (9-16); Calcium 10.1 mg/dL (8.4-10.2); Carbon Dioxide 24 mmol/L (22-29); Chloride 108 mmol/L (96-108); Estimated Glomerular Filt Rate > 60; Glucose Random 101 mg/dL (60-115); Lipase 16 U/L (8-78); Sodium 140 mmol/L (135-145); Total Protein 7.5 g/dL (6.5-8.0)
[2022-12-07 08:57] VITALS: BP 118/78; PULSE 61; RESP 16; TEMP 36.6; O2SAT 98
[2022-12-07 11:35] VITALS: BP 129/84; PULSE 68; RESP 16; O2SAT 99
== END 2022-12-07 11:41 | disposition home or self-care (01) ==
PROVIDERS: Emergency Provider Emergency Medicine; PCP Family Medicine
DX: K52.9 Noninfective gastroenteritis and colitis, unspecified (principal); F17.210 Nicotine dependence, cigarettes, uncomplicated
CPT/HCPCS: 36415; 74176; 80048; 80076; 81003; 81025; 83690; 85025; 96361; 96374; 99284; 99285; J1885

== ENCOUNTER 2022-12-09 11:17 | Outpatient (AMB) | payer OTHER, SELFPAY ==
[2022-12-09 11:23] VITALS: BP 110/68; PULSE 86; O2SAT 98; BMI 32.7
--- NOTE | 2022-12-09 11:23 | MHC.PC.OV ---
Vital Signs 12/09/22 11:23 Height 5 ft 5 in Weight 196 lb 4 oz BMI 32.7 BP 110/68 Blood Pressure Location Lt brachial Position Sitting Pulse 86 Pulse Source Pulse Oximeter Pulse Oximetry (%) 98 Oxygen Delivery Method Room Air Intake Visit Reasons: f/u pain and medication Intake Note: Patient is here to follow up on pain and medication today. She was seen in ED recently, and would like referral for colonoscopy. Allergies Environmental Allergy (Intermediate, Uncoded 12/09/22 11:28) UNKNOWN (SEASONAL ALLERGIES) Tobacco use date assessed: 12/09/22 Dental Screening Dental Screen Date: 12/09/22 Did you have a dental visit in the last 12 months?: No Did you have a dental problem in the last 6 months where you did not have access to dental care?: No Was dental information given to patient?: Yes HPI f/u pain and medication HPI Details 41 y/o female presents to f/u pain and chronic conditions. Had went to the ED 12/07/22 for evaluation of suprapubic pain x3 days starting in L lower quadrant. CT concern of mild colitis adjustment to sigmoid colon. Had started pt on Augmentin for nonspecific colitis. No recent labs to review. [facility] Medical History LLQ abdominal pain Numbness of left hand Asthma Surgical History Tubal ligation status History of tubal ligation Family History Father Asthma Diabetes mellitus Mother HTN (hypertension) Maternal Grandmother No problems noted. Brother No problems noted. Brother No problems noted. Sister No problems noted. Sister No problems noted. Sister No problems noted. Sister No problems noted. Sister Colon cancer Son No problems noted. Daughter No problems noted. Daughter No problems noted. 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 Current occupational exposures/hazards: No Cognitive needs: No Hearing needs: No Vision needs: Yes (glasses) Female Reproductive History Menstrual Age of Menarche: 11 Questionnaire Thrive Questionnaire Date Thrive assessed: 05/16/22 Review of Systems Const Denies chills, Denies fatigue, Denies fever(s), Denies headache(s) and Denies weakness ENT Denies dizziness and Denies headache(s) Card Denies dyspnea Resp Denies cough, Denies dyspnea, Denies wheezing and Denies other (shortness of breath) Musc Denies numbness and Denies tingling Neuro Denies dizziness, Denies headache(s), Denies numbness, Denies tingling and Denies weakness Psych Denies anxiety and Denies depression Endo Denies fatigue Aller/Immun Denies wheezing Physical exam (Primary Care) Vital Signs: Last Vital Signs Pulse 86 12/09/22 11:23 BP 110/68 12/09/22 11:23 Pulse Ox 98 12/09/22 11:23 Oxygen Delivery Method Room Air 12/09/22 11:23 BMI result Body Mass Index 32.7 Tobacco/Smoking Status: Tobacco use Status Tobacco use date assessed 12/09/22 12/09/22 11:33 Patient Tobacco Use Status Current everyday Tobacco 12/09/22 11:33 Tobacco use type Cigarette 12/09/22 11:33 e-Cigarette/Vaping Use Never Used 12/09/22 11:33 Thrive Assessment: Date of Thrive Assessment Date Thrive assessed 05/16/22 12/09/22 11:33 Const General: well developed; No acute distress Nutritional Appearance: well nourished Orientation/consciousness: patient oriented x3 HENMT Head: Yes normocephalic and Yes atraumatic Eyes General: appearance normal, both eyes and all related structures Pupils: Equal, round and reactive pupils present EOM: EOMs intact bilaterally Resp Effort & Inspection: normal respiratory effort Neuro General: patient oriented x3 and gait normal Cranial nerves: Yes Equal, round and reactive pupils present Psych Affect: normal affect Assessment and Plan Assessment & Plan (1) Nonspecific colitis: Code(s): K52.9 - Noninfective gastroenteritis and colitis, unspecified Plan: Ongoing abdominal discomfort Patient requests referral to gastroenterology - referred Continue amoxicillin as prescribed by the ED. continue modified diet (2) Polyarthralgia: Code(s): M25.50 - Pain in unspecified joint Plan: Patient has not had her labs drawn yet regarding polyarthralgia Currently ill and on antibiotics She will get her labs drawn after she is feeling better. We can follow-up in about a month (3) Cough: Code(s): R05.9 - Cough, unspecified Plan: Likely mild asthma exacerbation Refilled her albuterol (4) Asthma: Code(s): J45.909 - Unspecified asthma, uncomplicated Plan: As above Orders: Referrals Gastroenterology Referral K52.9 - Noninfective gastroenteritis and colitis, unspecified Medications: Refilled albuterol sulfate 90 mcg/actuation 2 inhalations inhalation Q4-6H 30 days PRN 8.5 grams 4RF shortness of breath or wheezing Coding Level of Care Code Est Pt Level 4 (48385) Diagnoses Nonspecific colitis K52.9 Polyarthralgia M25.50 Cough R05.9 Asthma J45.909
== END 2022-12-09 12:14 | disposition home or self-care (01) ==
PROVIDERS: PCP Family Medicine; Visit Provider Family Medicine
DX: K52.9 Noninfective gastroenteritis and colitis, unspecified (principal); M25.50 Pain in unspecified joint; R05.9 Cough, unspecified; J45.909 Unspecified asthma, uncomplicated
CPT/HCPCS: 99214

== ENCOUNTER 2023-01-01 10:07 | Outpatient (REF) | payer MEDICAID, SELFPAY ==
[2023-01-01 11:13] LABS: MANUAL DIFF FLAG NO
[2023-01-01 11:41] LABS: Basophils Percent Auto 0.5 % (0-2); Eosinophils Absolute Auto 0.1 X10*3/uL (0.0-0.4); Eosinophils Percent Auto 1.8 % (0-4); Hematocrit 41.3 % (37.0-47.0); Hemoglobin 13.8 g/dl (12.0-16.0); Imm Gran Abs Auto 0.01 X10*3/uL (0.00-0.03); Imm Gran Pct Auto 0.2 % (0.0-0.4); Lymphocytes Absolute Auto 1.9 X10*3/uL (1.2-4.9); Lymphocytes Percent Auto 43.3 % (20-40); Mean Corpuscular HGB Conc 33.4 g/dl (31.0-35.0); Mean Corpuscular Hemoglobin 30.9 pg (27.0-33.0); Mean Corpuscular Volume 92.4 fL (80.0-98.0); Mean Platelet Volume 13.2 fL (9.4-12.3); Monocytes Absolute Auto 0.3 X10*3/uL (0.1-1.2); Monocytes Percent Auto 7.5 % (2-11); Neutrophils Absolute Auto 2.1 x10*3/uL (2.0-8.3); Neutrophils Percent Auto 46.7 % (45-73); Platelet Count 148 X10*3/uL (160-400); Red Blood Count 4.47 X10*6/uL (4.20-5.50); Red Cell Distribution Width 11.7 % (11.0-16.0); White Blood Count 4.4 X10*3/uL (4.8-10.8)
[2023-01-01 12:02] LABS: Rheumatoid Factor < 13.0 IU/mL (<15.0)
[2023-01-01 12:03] LABS: Alanine Aminotransferase 21 U/L (0-31); Albumin Level 4.4 g/dL (3.5-5.0); Alkaline Phosphatase 86 U/L (39-117); Anion Gap 11 (12-20); Aspartate Amino Transferase 22 U/L (5-31); Bilirubin Total 0.6 mg/dL (0.0-1.0); Blood Urea Nitrogen 9 mg/dL (9-16); Calcium 9.4 mg/dL (8.4-10.2); Carbon Dioxide 26 mmol/L (22-29); Chloride 106 mmol/L (96-108); Estimated Glomerular Filt Rate > 60; Glucose Random 99 mg/dL (60-115); Sodium 139 mmol/L (135-145); Total Protein 7.3 g/dL (6.5-8.0)
[2023-01-01 12:13] LABS: Erythrocyte Sedimentation Rate 13 MM/HR (0-20)
[2023-01-03 14:00] LABS: CRP High Sensitivity 3.3 mg/L
[2023-01-06 13:59] LABS: Anti Nuclear Antibody Screen NEGATIVE (NEGATIVE)
[2023-01-06 14:08] LABS: Cyclic Citrullinated Peptide <16 UNITS
== END 2023-01-01 10:08 | disposition home or self-care (01) ==
LOC: HO.WFDLDS 10:07
PROVIDERS: Visit Provider Family Medicine
DX: Z00.00 Encounter for general adult medical examination without abnormal findings (principal); M25.50 Pain in unspecified joint
CPT/HCPCS: 36415; 80053; 85025; 85652; 86038; 86141; 86200; 86431

== ENCOUNTER 2023-02-17 10:40 | Outpatient (AMB) | payer OTHER, SELFPAY ==
[2023-02-17 11:10] VITALS: BP 120/72; RESP 16; BMI 32.7
--- NOTE | 2023-02-17 11:10 | MHC.PC.OV ---
Vital Signs 02/17/23 11:10 Height 5 ft 5 in Weight 196 lb 8 oz BMI 32.7 BP 120/72 Blood Pressure Location Lt brachial Position Sitting Respiration 16 Intake Visit Reasons: f/u chronic conditions Intake Note: Patient is here for follow up on chronic conditions. Patient would like refills of Lidocaine patches, and Atorvastatin. Allergies Environmental Allergy (Intermediate, Uncoded 02/17/23 11:11) UNKNOWN (SEASONAL ALLERGIES) Tobacco use date assessed: 02/17/23 HPI f/u chronic conditions HPI Details 42 y/o female presents to f/u chronic conditions. Patient would like refills of Lidocaine patches, and Atorvastatin. Was at the ED 12/07/22 for a colitis. She reports duloxetine 40mg has not been doing anything so she had discontinued it. Pt reports R leg pain. HPI Comments History of Present Illness Details Documentation assistance for Jose De Jesus Ye MD, was provided by Zeferino Larson,? Window Gl[employer] Helper on 02/17/2023 12:02 PM EST. I, Dr. Ye, have read, observed, and verified documentation.? PFSH Medical History LLQ abdominal pain Numbness of left hand Asthma Surgical History Tubal ligation status History of tubal ligation Family History Father Asthma Diabetes mellitus Mother HTN (hypertension) Maternal Grandmother No problems noted. Brother No problems noted. Brother No problems noted. Sister No problems noted. Sister No problems noted. Sister No problems noted. Sister No problems noted. Sister Colon cancer Son No problems noted. Daughter No problems noted. Daughter No problems noted. 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 Current occupational exposures/hazards: No Cognitive needs: No Hearing needs: No Vision needs: Yes (glasses) Female Reproductive History Menstrual Age of Menarche: 11 Questionnaire Thrive Questionnaire Date Thrive assessed: 05/16/22 Review of Systems Const Denies chills, Denies fatigue, Denies fever(s), Denies headache(s) and Denies weakness ENT Denies dizziness and Denies headache(s) Card Denies dyspnea Resp Denies cough, Denies dyspnea, Denies wheezing and Denies other (shortness of breath) Musc Denies numbness and Denies tingling Neuro Denies dizziness, Denies headache(s), Denies numbness, Denies tingling and Denies weakness Psych Denies anxiety and Denies depression Endo Denies fatigue Aller/Immun Denies wheezing Physical exam (Primary Care) Vital Signs: Last Vital Signs Resp 16 02/17/23 11:10 BP 120/72 02/17/23 11:10 BMI result Body Mass Index 32.7 Tobacco/Smoking Status: Tobacco use Status Tobacco use date assessed 02/17/23 02/17/23 11:15 Patient Tobacco Use Status Current everyday Tobacco 02/17/23 11:15 Tobacco use type Cigarette 02/17/23 11:15 e-Cigarette/Vaping Use Never Used 02/17/23 11:15 Thrive Assessment: Date of Thrive Assessment Date Thrive assessed 05/16/22 02/17/23 11:15 Const General: well developed; No acute distress Nutritional Appearance: well nourished Orientation/consciousness: patient oriented x3 [facility] Head: Yes normocephalic and Yes atraumatic Eyes General: appearance normal, both eyes and all related structures Pupils: Equal, round and reactive pupils present EOM: EOMs intact bilaterally Resp Effort & Inspection: normal respiratory effort Neuro General: patient oriented x3 and gait normal Cranial nerves: Yes Equal, round and reactive pupils present Psych Affect: normal affect Assessment and Plan Assessment & Plan (1) Right leg pain: Code(s): M79.604 - Pain in right leg Plan: Posterior?distal?right?thigh?pain?and?tightness. Referred?to?[facility] Also?left?Achilles?tendon?pain?and?this?can?be?handled?by?[facility]?as?well She?can?use?Tylenol?and?she?says?that?she?tolerates?ibuprofen?at?home. Will?have?her?use?ibuprofen?at?300?mg?3?times?a?day (2) Left Achilles tendinitis: Code(s): M76.62 - Achilles tendinitis, left leg Plan: As?above (3) Colitis: Code(s): K52.9 - Noninfective gastroenteritis and colitis, unspecified Plan: Resolved (4) Right leg pain: Code(s): M79.604 - Pain in right leg Plan Reviewed?labs?and?patient's?CRP?is?mildly?elevated?but?her?other?inflammatory?and?autoimmune?markers?are?negative. CRP?may?be?elevated?secondary?to?recent?colitis. ?No?indication?to?refer?to?Rheumatology. Orders: Orders Complete Blood Count Auto Diff Today Z00.00 - Encounter for general adult medical examination without abnormal findings Comprehensive Robinson. Panel Fast Today Z00.00 - Encounter for general adult medical examination without abnormal findings Lipid Panel Today Z00.00 - Encounter for general adult medical examination without abnormal findings Microalbumin, Random (w Creat) Today I10 - Essential (primary) hypertension UA and rflx microscopic Today Z00.00 - Encounter for general adult medical examination without abnormal findings TSH reflex Free T4 Today Z00.00 - Encounter for general adult medical examination without abnormal findings Vitamin D 25-OH Total Today E55.9 - Vitamin D deficiency, unspecified Vitamin B12 and Folate Today E53.8 - Deficiency of other specified B group vitamins Hemoglobin A1c Today R73.01 - Impaired fasting glucose Referrals Physiatry Referral M25.50 - Pain in unspecified joint, M76.62 - Achilles tendinitis, left leg, M79.604 - Pain in right leg, M79.7 - Fibromyalgia Medications: New ibuprofen 300 mg (1/2 x 600 mg) PO Q8H PRN 23 tabs 2RF pain 14 days Refilled lidocaine 5% leave on most painful area for up to 12 hrs 1 patch topical DAILY PRN 30 ea 1RF pain atorvastatin 20 mg PO BEDTIME 30 tabs 0RF Coding Level of Care Code Est Pt Level 3 (46489) Diagnoses Right leg pain M79.604 Left Achilles tendinitis M76.62 Colitis K52.9
== END 2023-02-17 12:14 | disposition home or self-care (01) ==
PROVIDERS: PCP Family Medicine; Visit Provider Family Medicine
DX: M79.604 Pain in right leg (principal); M76.62 Achilles tendinitis, left leg; K52.9 Noninfective gastroenteritis and colitis, unspecified
CPT/HCPCS: 99213

== ENCOUNTER 2023-04-21 13:12 | Outpatient (AMB) | payer OTHER, SELFPAY ==
[2023-04-21 13:37] VITALS: BP 130/74; PULSE 94; O2SAT 95; BMI 31.9
--- NOTE | 2023-04-21 13:37 | AM.OFFWIN_ITS ---
Intake Vital Signs 04/21/23 13:37 Height 5 ft 5 in Weight 192 lb BMI 31.9 BP 130/74 Blood Pressure Location Lt brachial Position Sitting Pulse 94 Pulse Oximetry (%) 95 Oxygen Delivery Method Room Air Intake Visit Reasons: EP Coccyx pain Patient Tobacco Use Status: Current everyday Tobacco user Allergies Environmental Allergy (Intermediate, Uncoded 02/17/23 11:11) UNKNOWN (SEASONAL ALLERGIES) Do you need a note to return to daycare/school/sports/work: No HPI HPI Comments History of Present Illness Details Patient presents to the office today for 1 week of worsening pain over the coccyx Denies fall or injury This is a chronic issue, pcp has referred her to [facility] but she has not been called to schedule She was prescribed gabapentin, muscle relaxers and NSAIDs but she is not taking any of them currently Pain is worse at night and making it hard to sleep Denies red flag symptoms including new loss of bowel, bladder or saddle anesthesia PFSH Medical History LLQ abdominal pain Numbness of left hand Asthma Surgical History Tubal ligation status History of tubal ligation Family History Father Asthma Diabetes mellitus Mother HTN (hypertension) Maternal Grandmother No problems noted. Brother No problems noted. Brother No problems noted. Sister No problems noted. Sister No problems noted. Sister No problems noted. Sister No problems noted. Sister Colon cancer Son No problems noted. Daughter No problems noted. Daughter No problems noted. 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 Answers questions appropriately. Fully engaged in examination. Skin: warm, dry, intact HEENT: Normocephalic. Hearing intact. Cardiac: External chest normal in appearance. Respiratory: No cough, audible wheezing or stridor. Abdomen: without gross distension. MS: No obvious swelling or deformities. Able to transition from sit to stand unassisted. Ambulates with bilaterally normal heel strike and toe off Tender to palpation over coccyx nontender to palpation over PSIS Calvin negative bilaterally SLR neg no pain with I/E rotation hips bilaterally Neurological: Oriented to person, place, time and situation. Thought process intact. No gait abnormalities appreciated. Psychiatric: Appropriate mood and affect. Good judgment and insight. Assessment & Plan Assessment & Plan (1) Coccydynia: Code(s): M53.3 - Sacrococcygeal disorders, not elsewhere classified Plan Patient presented to the walk in today for complaints of pain to coccyx for last 1 week This is a chronic pain that has been worse over the last week Tizanidine 2mg po BID as needed, patient advised on cautions for use Patient declines NSAIDs today Follow up with pcp to further discuss referral to interventional pain management/[facility] that was previously planned Follow up here for any new or worsening symptoms Medications: New tizanidine may cause drowsiness, no driving while taking this medication. Do not take with other [employer] depressants 2 mg PO BID PRN 20 tabs 0RF muscle spasticity Coding Level of Care Code Est Pt Level 4 (47320) Diagnoses Coccydynia M53.3
== END 2023-04-21 14:42 | disposition home or self-care (01) ==
PROVIDERS: PCP Family Medicine; Visit Provider Registered Nurse Emergency
DX: M53.3 Sacrococcygeal disorders, not elsewhere classified (principal)
CPT/HCPCS: 99214

== ENCOUNTER 2023-07-21 13:38 | Emergency (ER) | payer OTHER, SELFPAY ==
--- NOTE | ~2023-07-21 | XR_ITS ---
EXAMINATION: XR CHEST CLINICAL INFORMATION: Cough, wheezing COMPARISON: Chest radiograph March 03, 2018 TECHNIQUE: 2 views of the chest were obtained. FINDINGS: Patchy infiltrates in the right mid lung. No pleural effusion. The heart and mediastinal borders are normal. No acute osseous abnormality. XR/XR chest 2V IMPRESSION: Patchy infiltrates in the right mid lung, concerning for early infection.
[2023-07-21 14:23] VITALS: BP 132/77; PULSE 80; RESP 18; TEMP 36.8; O2SAT 98; BMI 36.5
--- NOTE | 2023-07-21 14:26 | ED_ITS ---
HPI - URI/Sore Throat General Chief Complaint: Upper Respiratory Symptoms Stated Complaint: asthma Time Seen by Provider: 07/21/23 15:25 Source: patient Mode of arrival: ambulatory Limitations: no limitations History of Present Illness HPI Narrative: 42-year-old female history of asthma. patient states couple of days of coughing, wheezing, body aches and chills. Patient states producing white phlegm when she coughs. Patient states using albuterol nebulizer treatment with no relief. Patient states her grandkids daughter and are also sick. Patient denies any recent long travel outside the country. Patient denies any leg swelling, calf pain, pleurisy, or any recent surgery. Patient denies any recent trauma Related Data Home Medications ?Medication ?Instructions ?Recorded ?Confirmed fexofenadine 180 mg tablet 180 mg PO DAILY 03/09/21 08/30/21 (Annel Allergy) esomeprazole magnesium 20 mg 20 mg PO DAILY PRN 08/30/21 08/30/21 capsule,delayed release (Nexium) Previous Rx's ?Medication ?Instructions ?Recorded acetaminophen 500 mg tablet 1,000 mg (2 x 500 mg) PO QID PRN 06/05/21 (Tylenol Extra Strength) fever or pain #14 tabs albuterol sulfate 90 mcg/actuation 2 inh inhalation Q4-6H PRN 12/09/22 aerosol inhaler shortness of breath or wheezing 30 days #8.5 grams trazodone 50 mg tablet 50 mg PO BID PRN for anxiety #60 12/29/22 tabs atorvastatin 20 mg tablet 20 mg PO BEDTIME #30 tabs 02/17/23 ibuprofen 600 mg tablet 300 mg (1/2 x 600 mg) PO Q8H PRN 02/17/23 pain 14 days #23 tabs lidocaine 5 % topical patch 1 patch topical DAILY PRN pain #30 02/17/23 ea tizanidine 2 mg tablet 2 mg PO BID PRN muscle spasticity 04/21/23 #20 tabs amoxicillin 875 mg-potassium 1 tab PO Q12H 5 days #10 tabs 07/21/23 clavulanate 125 mg tablet benzonatate 200 mg capsule 200 mg PO TID PRN cough 7 days #21 07/21/23 caps doxycycline hyclate 100 mg capsule 100 mg PO BID 7 days #14 caps 04/22/24 Allergies Allergy/AdvReac Type Severity Reaction Status Date / Time Environmental Allergy Intermediate UNKNOWN Uncoded 07/21/23 14:28 (SEASONAL ALLERGIES) Review of Systems 2 Review of Systems: coughing, fever, chills Yes all other systems are reviewed and are negative [facility] Past Medical History Medical History LLQ abdominal pain Numbness of left hand Asthma Surgical History Tubal ligation status History of tubal ligation Family History Family History Father Asthma Diabetes mellitus Mother HTN (hypertension) Maternal Grandmother No problems noted. Brother No problems noted. Brother No problems noted. Sister No problems noted. Sister No problems noted. Sister No problems noted. Sister No problems noted. Sister Colon cancer Son No problems noted. Daughter No problems noted. Daughter No problems noted. 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 Current occupational exposures/hazards: No Cognitive needs: No Hearing needs: No Vision needs: Yes (glasses) Physical Exam 2 Vital Signs: Vital Signs: Last Vital Signs Temp 99.2 F 07/21/23 21:49 Pulse 75 07/21/23 21:49 Resp 14 07/21/23 21:49 BP 124/71 07/21/23 21:49 Pulse Ox 96 07/21/23 21:49 O2 Del Method Room Air 07/21/23 21:49 BMI result Body Mass Index 36.5 Const: General: cooperative, healthy appearing, comfortable, no acute distress, well developed, alert, awake and Physically active O rientation/consciousness: oriented to person, oriented to place, oriented to time and patient oriented x3 HEENT: Head: Yes normal to inspection, Yes No palpable skull fracture present, Yes normocephalic, Yes atraumatic and No abrasion Ears: hearing grossly normal bilaterally, external ears normal, TM's normal bilaterally, TM normal on the right, TM normal on the left, EAC's normal, mastoids normal and no periauricular adenopathy Throat: Yes posterior oropharynx normal, Yes tonsils normal and Yes uvula midline Eyes: General: appearance normal, both eyes and all related structures Neck: Neck: Yes normal visual inspection, Yes full ROM, Yes no lymphadenopathy, Yes no meningeal signs, Yes trachea midline, Yes supple, No anterior neck swelling and No tender Chest: Chest palpation & inspection: normal inspection of the chest and normal palpation of entire chest wall Resp: Effort & Inspection: normal respiratory effort and able to speak in complete sentences Auscultation: wheezes expiratory wheezes ( diffuse) Cardio: Jugular venous distension: no JVD Heart sounds: S1 normal heart sound present and S2 normal heart sound present GI: Inspection: Yes normal to inspection Palpation (GI): Soft to palpation, not firm, nontender, no guarding and not rigid : General: No CVA tenderness and Yes no CVA tenderness Back/Spine/Pelvis: Back: no CVA tenderness, No CVA tenderness and No back tenderness Skin: General skin exam: no rashes or lesions noted, elasticity normal and turgor normal Neuro: General: oriented to person, oriented to place, oriented to time, patient oriented x3, gait normal, tone normal, moves all extremities, Normal light touch and pain sensation, no meningeal signs, no focal motor deficits, CN's II-XI intact bilaterally and normal sensation to monofilament Extrem: Other: bilateral lower extremities negative for swelling, pitting edema, or calf tenderness. General: Yes normal to inspection, Yes full ROM and Yes capillary refill normal Psych: Appearance: grossly normal, well kempt and not disheveled Course Course Course Narrative: This is a rapid medical exam. Defer additional HPI, ROS, PE to primary provider. 42-year-old female with a history of asthma here with complaints of cough, wheezing, fever since yesterday. Multiple sick contacts at home. Did a COVID test and it was negative. Will obtain chest x-ray, viral testing Vitals stable Reevaluation(s) Reevaluation #1: Received patient in sign-out pending repeat potassium. Potassium is within normal limits on repeat labs. Patient stable for discharge home at this time. Time: 21:09 Medications Administered Discontinued Medications Generic Name Dose Route Start Last Admin Trade Name Alexa PRN Reason Stop Dose Admin Albuterol Sulfate 12 puff 07/21/23 14:43 07/21/23 14:46 Albuterol Sulfate 90 Mcg 8 Gm Inhaler INHALE 07/21/23 14:44 12 puff ONCE ONE Administration Albuterol Sulfate 2.5 mg/ 0 mg 07/21/23 16:16 07/21/23 16:28 Albuterol/Ipratropium 3 ml INHALE 07/21/23 16:17 5 dose ONCE ONE Administration Magnesium Sulfate 2 gm in 50 mls @ 25 mls/hr 07/21/23 16:18 07/21/23 17:36 Magnesium Sulfate/H2o IV 07/21/23 18:17 25 mls/hr ONCE ONE Administration Methylprednisolone Sodium Succinate 125 mg 07/21/23 16:18 07/21/23 17:36 Methylprednisolone Sod Succ 125 Mg/2 Ml Vial IVPUSH 07/21/23 16:19 125 mg ONCE ONE Administration Potassium Chloride 40 meq 07/21/23 17:42 07/21/23 19:22 Potassium Chloride Packet 20 Meq Packet PO 07/21/23 17:43 40 meq ONCE ONE Administration Medical Decision Making Medical Decision Making [facility] Narrative: 42 yold female presents to the ED asthma exacerbation with URI symptoms. patient has significant wheezing. Patient received ED bronchodilator. Respiratory therapist recommend IV Solu-Medrol magnesium. Patient agreeable with plan. Pending COVID swab and x-ray 5:50pm: X-ray shows early pneumonia. Potassium 2.9 probably due to excessive albuterol. EKG ordered. Potassium oral ordered. Repeat labs to be done 8:09pm: Case signed out to and Kym Costa to follow-up repeat potassium Differential Diagnosis Differential Diagnoses: The differential diagnosis associated with the presentation includes ( pneumonia, influenza, RSV, COVID) Admission/Observation Consideration of admission/observation: Escalation of care including admission/observation considered Lab Data [facility] Lab Attestation statement: I reviewed the patient's lab results. 07/21/23 17:08 07/21/23 20:19 Labs: Lab Results 04/22/24 04/22/24 04/22/24 Range/Units 15:40 17:08 20:19 WBC 9.6 (4.8-10.8) X10*3/uL RBC 4.35 (4.20-5.50) X10*6/uL Hgb 13.5 (12.0-16.0) g/dl Hct 39.1 (37.0-47.0) % MCV 89.9 (80.0-98.0) fL MCH 31.0 (27.0-33.0) pg MCHC 34.5 (31.0-35.0) g/dl RDW 11.5 (11.0-16.0) % Plt Count 226 D (160-400) X10*3/uL MPV 10.8 (9.4-12.3) fL Immature Gran % (Auto) 0.2 (0.0-0.4) % Neut % (Auto) 61.4 (45-73) % Lymph % (Auto) 30.1 (20-40) % [place] % (Auto) 6.6 (2-11) % Eos % (Auto) 1.3 (0-4) % Baso % (Auto) 0.4 (0-2) % Lymph # (Auto) 2.9 (1.2-4.9) X10*3/uL [place] # (Auto) 0.6 (0.1-1.2) X10*3/uL Eos # (Auto) 0.1 (0.0-0.4) X10*3/uL Baso # (Auto) 0.0 (0.0-0.2) X10*3/uL Abs Immat Gran (auto) 0.02 (0.00-0.03) X10*3/uL Absolute Neuts (auto) 5.9 (2.0-8.3) x10*3/uL Absolute Nucleated RBC 0.000 (0.0-0.012) X10*3/uL Nucleated RBC % (auto) 0.0 (0.0-0.2) /100WBC Sodium 140 (135-145) mmol/L Potassium 2.9 L* 3.9 D (3.3-5.1) mmol/L Chloride 105 (96-108) mmol/L Carbon Dioxide 25 (22-29) mmol/L Anion Gap 13 (12-20) BUN 5 L (9-16) mg/dL Creatinine 0.68 (0.5-1.4) mg/dL Estim Creat Clear Calc 102.9 Estimated GFR > 60 Random Glucose 106 (60-115) mg/dL Calcium 9.6 (8.4-10.2) mg/dL Total Bilirubin 0.3 (0.0-1.0) mg/dL AST 18 (5-31) U/L ALT 20 (0-31) U/L Alkaline Phosphatase 83 (39-117) U/L Total Protein 7.8 (6.5-8.0) g/dL Albumin 4.2 (3.5-5.0) g/dL Influenza Type A (PCR) NEGATIVE (Negative) Influenza Type B (PCR) NEGATIVE (Negative) RSV RNA Qual (PCR) NEGATIVE (Negative) SARS-CoV-2 RNA (RT-PCR) NEGATIVE (Negative) Independent Interpretation I performed an independent interpretation of an: EKG ( EKG normal sinus) and Plain X-Ray Independent Historian Clinical information obtained from an independent historian. History obtained from or confirmed by: Other (patient) External Record Review External record reviewed: Other Prescription Management I considered prescription management with: Antibiotic Discharge Plan Discharge Clinical Impression: Pneumonia Patient Disposition: Home, Self-Care Instructions: Community Acquired Pneumonia (ED) Additional Instructions: x-ray shows pneumonia you will need antibiotics. Recommend follow-up with your primary care provider. Return to the ED immediately for any chest pain, shortness of breath, weakness, dizziness, or any other concerning symptoms. Prescriptions: New doxycycline hyclate 100 mg capsule 100 mg PO BID 7 Days Qty: 14 0RF amoxicillin-pot clavulanate 875-125 mg tablet 1 tab PO Q12H 5 Days Qty: 10 0RF benzonatate 200 mg capsule 200 mg PO TID PRN (Reason: cough) 7 Days Qty: 21 0RF No Action trazodone 50 mg tablet 50 mg PO BID PRN (Reason: for anxiety) Qty: 60 2RF acetaminophen [Tylenol Extra Strength] 500 mg tablet 1,000 mg PO QID PRN (Reason: fever or pain) Qty: 14 0RF fexofenadine [Annel Allergy] 180 mg tablet 180 mg PO DAILY lidocaine 5 % adhesive patch,medicated 1 patch topical DAILY PRN (Reason: pain) Qty: 30 1RF Rx Instructions: leave on most painful area for up to 12 hrs atorvastatin 20 mg tablet 20 mg PO BEDTIME Qty: 30 0RF ibuprofen 600 mg tablet 300 mg PO Q8H PRN (Reason: pain) 14 Days Qty: 23 2RF albuterol sulfate 90 mcg/actuation HFA aerosol inhaler 2 inh inhalation Q4-6H PRN (Reason: shortness of breath or wheezing) 30 Days Qty: 8.5 4RF tizanidine 2 mg tablet 2 mg PO BID PRN (Reason: muscle spasticity) Qty: 20 0RF Rx Instructions: may cause drowsiness, no driving while taking this medication. Do not take with other [employer] depressants esomeprazole magnesium [Nexium] 20 mg capsule,delayed release(DR/EC) 20 mg PO DAILY PRN Stand Alone Forms: Work/School Release Interventions: ED Discharge Assessment Last Done: 07/21/23 21:49 Discharge Date/Time: 07/21/23 21:50 Print Language: Luxembourger
[2023-07-21] MEDS: Albuterol Sulfate 90 MCG 8 GM INHALER 12 PUFF INHALE (14:46)
--- NOTE | 2023-07-21 15:43 | PC.NURSE ---
patient awake and alert. skin pwd. resp even and labored. speaking in full, clear sentences. pt reports feeling a little better after inhaler by RT. pt reports hx of asthma as well as recent fevers. swab sent to lab per orders. pt aware of plan of care
[2023-07-21 16:28] VITALS: PULSE 79; RESP 20; O2SAT 98
[2023-07-21 16:28] LABS: Influenza A PCR NEGATIVE (Negative); Influenza B PCR NEGATIVE (Negative); Resp Syncy Virus RNA Qual PCR NEGATIVE (Negative); SARS COV2 PCR INHOUSE NEGATIVE (Negative)
[2023-07-21] MEDS: Albuterol Sulfate 2.5 MG, Albuterol/Iprat 2.5/0.5MG 3 ML 3 ML INHALE (16:28)
[2023-07-21 17:12] LABS: MANUAL DIFF FLAG NO
[2023-07-21 17:16] LABS: Basophils Percent Auto 0.4 % (0-2); Eosinophils Absolute Auto 0.1 X10*3/uL (0.0-0.4); Eosinophils Percent Auto 1.3 % (0-4); Hematocrit 39.1 % (37.0-47.0); Hemoglobin 13.5 g/dl (12.0-16.0); Imm Gran Abs Auto 0.02 X10*3/uL (0.00-0.03); Imm Gran Pct Auto 0.2 % (0.0-0.4); Lymphocytes Absolute Auto 2.9 X10*3/uL (1.2-4.9); Lymphocytes Percent Auto 30.1 % (20-40); Mean Corpuscular HGB Conc 34.5 g/dl (31.0-35.0); Mean Corpuscular Volume 89.9 fL (80.0-98.0); Mean Platelet Volume 10.8 fL (9.4-12.3); Monocytes Absolute Auto 0.6 X10*3/uL (0.1-1.2); Monocytes Percent Auto 6.6 % (2-11); Neutrophils Absolute Auto 5.9 x10*3/uL (2.0-8.3); Neutrophils Percent Auto 61.4 % (45-73); Platelet Count 226 X10*3/uL (160-400); Red Blood Count 4.35 X10*6/uL (4.20-5.50); Red Cell Distribution Width 11.5 % (11.0-16.0); White Blood Count 9.6 X10*3/uL (4.8-10.8)
[2023-07-21] MEDS: Magnesium Sulfate/H2O 2 GM/50 ML PIGGYBACK IV (17:36)
[2023-07-21] MEDS: methylPREDNISolone Sod Succ 125 MG/2 ML VIAL IVPUSH (17:36)
[2023-07-21 17:39] LABS: Alanine Aminotransferase 20 U/L (0-31); Albumin Level 4.2 g/dL (3.5-5.0); Alkaline Phosphatase 83 U/L (39-117); Anion Gap 13 (12-20); Aspartate Amino Transferase 18 U/L (5-31); Bilirubin Total 0.3 mg/dL (0.0-1.0); Blood Urea Nitrogen 5 mg/dL (9-16); Calcium 9.6 mg/dL (8.4-10.2); Carbon Dioxide 25 mmol/L (22-29); Chloride 105 mmol/L (96-108); Creatinine Clr Calc Pharmacy 102.9; Estimated Glomerular Filt Rate > 60; Glucose Random 106 mg/dL (60-115); Potassium 2.9 mmol/L (3.3-5.1); Sodium 140 mmol/L (135-145); Total Protein 7.8 g/dL (6.5-8.0)
[2023-07-21 17:42] VITALS: BP 104/63; PULSE 81; RESP 16; TEMP 36.9; O2SAT 99
--- NOTE | 2023-07-21 17:42 | ECG_ITS ---
Test Reason : HYPOKALEMIA Blood Pressure : / mmHG Vent. Rate : 075 BPM Atrial Rate : 075 BPM P-R Int : 160 ms QRS Dur : 100 ms QT Int : 384 ms P-R-T Axes : 032 020 003 degrees QTc Int : 428 ms Normal sinus rhythm Nonspecific T wave abnormality Abnormal ECG When compared with ECG of 04-OCT-2020 21:45, T wave inversion now evident in Anterior leads Referred By: Manjinder Mansfield Electronically Signed By:AMINA TELLO MD
[2023-07-21 17:45] VITALS: O2SAT 98
[2023-07-21] MEDS: Potassium Chloride Packet 20 MEQ PACKET 40 MEQ PO (19:22)
[2023-07-21 20:50] LABS: Potassium 3.9 mmol/L (3.3-5.1)
[2023-07-21 21:48] VITALS: BP 124/71; PULSE 75; RESP 14; TEMP 37.3; O2SAT 96
[2023-07-21 21:49] VITALS: BP 124/71; PULSE 75; RESP 14; TEMP 37.3; O2SAT 96
== END 2023-07-21 21:50 | disposition home or self-care (01) ==
PROVIDERS: Nurse Practitioner Family; Physician Assistant; Emergency Provider Emergency Medicine; PCP Family Medicine
DX: J18.9 Pneumonia, unspecified organism (principal); J45.909 Unspecified asthma, uncomplicated
CPT/HCPCS: 0241U; 36415; 71046; 80053; 84132; 85025; 93005; 96374; 96375; 99284; 99285; J2919; J3475

== ENCOUNTER → 2023-07-21 17:42 | Outpatient (BNV) | payer OTHER, SELFPAY | PROVIDERS: Emergency Provider Emergency Medicine; PCP Family Medicine; Visit Provider Internal Medicine Cardiovascular Disease | DX: R94.31 Abnormal electrocardiogram [ECG] [EKG] (principal) | CPT/HCPCS: 93010 ==

== ENCOUNTER 2023-10-01 11:30 | Outpatient (REF) | payer MEDICAID, SELFPAY ==
--- NOTE | ~2023-10-01 | MM_ITS ---
EXAMINATION: MM SCREENING DIGITAL BREAST TOMOSYNTHESIS, BILATERAL CLINICAL INFORMATION: Screening. Asymptomatic. COMPARISON: Mammography: This study is compared with prior exams dating back to 2013. TECHNIQUE: Digital breast tomosynthesis is performed in both the craniocaudal and mediolateral oblique views along with computer-aided detection (CAD). Synthesized 2D images are generated from the tomosynthesis. FINDINGS: The breasts are almost entirely fatty (ACR BI-RADS breast composition Category a). There are no significant masses, abnormal calcifications, or other abnormalities. MM/MM tomosynthesis screening BI IMPRESSION: No mammographic evidence of malignancy. ASSESSMENT: BI-RADS BI-RADS 1 - Negative RECOMMENDATION: Routine annual mammography screening. 1 year F/U This examination should not preclude the clinical evaluation of a suspicious palpable abnormality. This patient's information was entered into a reminder system with a target due date for their next mammogram.
== END 2023-10-01 11:31 | disposition home or self-care (01) ==
LOC: HO.MAMMO 11:30
PROVIDERS: PCP Family Medicine; Visit Provider Family Medicine
DX: Z12.31 Encounter for screening mammogram for malignant neoplasm of breast (principal)
CPT/HCPCS: 77063; 77067

== ENCOUNTER → 2023-10-01 11:30 | Outpatient (BNV) | payer MEDICAID, SELFPAY | PROVIDERS: PCP Family Medicine; Visit Provider Radiology Diagnostic Radiology | DX: Z12.31 Encounter for screening mammogram for malignant neoplasm of breast (principal) | CPT/HCPCS: 77063; 77067 ==

== ENCOUNTER 2023-11-14 11:27 | Outpatient (AMB) | payer OTHER, SELFPAY ==
--- NOTE | 2023-11-14 11:35 | A.OFFPC_ITS ---
Vital Signs 11/14/23 11:40 Height 5 ft Weight 198 lb 4 oz BMI 38.7 BP 104/70 Blood Pressure Location Rt brachial Position Sitting Respiration 16 Pulse 77 Pulse Source Pulse Oximeter Temp 98 F Temp Source Tympanic Pulse Oximetry (%) 95 Oxygen Delivery Method Room Air Intake Visit Reasons: CIATIC NERV/enlarged breasts Intake Note: nerve pain and felt arm lump near elbow itching/painful and breast reduction referral due to heavy breast Allergies Environmental Allergy (Intermediate, Uncoded 11/14/23 11:38) UNKNOWN (SEASONAL ALLERGIES) Medication List - Last Reconciled 11/14/23 by Jose De Jesus Ye MD acetaminophen (Tylenol Extra Strength) 1,000 mg (2 x 500 mg) PO QID PRN albuterol sulfate 90 mcg/actuation 2 inhalations inhalation Q4-6H PRN 30 days clotrimazole-betamethasone 1-0.05 % 1 appl topical BID 14 days esomeprazole magnesium (Nexium) 20 mg PO DAILY PRN fexofenadine (Annel Allergy) 180 mg PO DAILY ibuprofen 600 mg PO Q8H PRN 30 days lidocaine 5% 1 patch topical DAILY PRN Tobacco use date assessed: 02/17/23 Dental Screening Dental Screen Date: 12/09/22 HPI CIATIC NERV/enlarged breasts HPI Details 42 y/o female presents today with compla ints of back pain. Has complaints of arm lump near elbow. She notes an additional rash/itch of her forearm. Also has complaints of R lateral hip pain. Has been using ibuprofen and lidocaine patches for relief. Has some complaints of foot pain/irritation from her sneakers. HPI Comments History of Present Illness Details Documentation assistance for Jose De Jesus Ye MD, was provided by Zeferino Larson, Nurse Advisor on 11/14/2023 at 11:55 AM SHANNAN. Ernestina, Dr. Ye, have read, observed, and verified documentation. PFSH Medical History LLQ abdominal pain Numbness of left hand Asthma Surgical History Tubal ligation status History of tubal ligation Family History Father Asthma Diabetes mellitus Mother HTN (hypertension) Maternal Grandmother No problems noted. Brother No problems noted. Brother No problems noted. Sister No problems noted. Sister No problems noted. Sister No problems noted. Sister No problems noted. Sister Colon cancer Son No problems noted. Daughter No problems noted. Daughter No problems noted. 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 Current occupational exposures/hazards: No Cognitive needs: No Hearing needs: No Vision needs: Yes (glasses) Female Reproductive History Menstrual Age of Menarche: 11 Questionnaire Thrive Questionnaire Date Thrive assessed: 05/16/22 Review of Systems Const Denies chills, Denies fatigue, Denies fever(s), Denies headache(s) and Denies weakness ENT Denies dizziness and Denies headache(s) Card Denies dyspnea Resp Denies cough, Denies dyspnea, Denies wheezing and Denies other (shortness of breath) Musc Details: R foot pain Denies numbness and Denies tingling Skin/Breast Reports rash Neuro Denies dizziness, Denies headache(s), Denies numbness, Denies tingling and Denies weakness Psych Denies anxiety and Denies depression Endo Denies fatigue Aller/Immun Denies wheezing Physical exam (Primary Care) Vital Signs: Last Vital Signs Temp 98 F 11/14/23 11:40 Pulse 77 11/14/23 11:40 Resp 16 11/14/23 11:40 BP 104/70 11/14/23 11:40 Pulse Ox 95 11/14/23 11:40 Oxygen Delivery Method Room Air 11/14/23 11:40 BMI result Body Mass Index 38.7 Tobacco/Smoking Status: Tobacco use Status Tobacco use date assessed 02/17/23 11/14/23 11:43 Patient Tobacco Use Status Current everyday Tobacco 11/14/23 11:43 Tobacco use type Cigarette 11/14/23 11:43 e-Cigarette/Vaping Use Never Used 11/14/23 11:43 Thrive Assessment: Date of Thrive Assessment Date Thrive assessed 05/16/22 11/14/23 11:43 Const General: well developed; No acute distress Nutritional Appearance: well nourished Orientation/consciousness: patient oriented x3 [facility] Head: Yes normocephalic and Yes atraumatic Eyes General: appearance normal, both eyes and all related structures Pupils: Equal, round and reactive pupils present EOM: EOMs intact bilaterally Resp Effort & Inspection: normal respiratory effort Neuro General: patient oriented x3 and gait normal Cranial nerves: Yes Equal, round and reactive pupils present Psych Affect: normal affect Assessment and Plan Assessment & Plan (1) Sciatica: Code(s): M54.30 - Sciatica, unspecified side Plan: As?above (2) Right hip pain: Code(s): M25.551 - Pain in right hip Plan: As?above (3) Fibromyalgia: Code(s): M79.7 - Fibromyalgia Plan: Multipl e?musculoskeletal?complaints?in?patient?with?fibromyalgia,?including?right?poste rior?leg?pain,?bilateral?hip?pain,?bilateral?shoulder?pain?and?Achilles?tendon?p ain Had?referred?her?[facility]?in?the?past?which?did?help. Referring?her?back?and?advised?her?to?continue?an?exercise?program Continue?ibuprofen?and?lidocaine?patches (4) Large breasts: Code(s): N62 - Hypertrophy of breast Plan: Large?breasts?and?patient?has?complaints?of?shoulder?neck?pain She?would?like?to?discuss?breast?reduction?surgery [place] [place]) Skin lump of arm: Code(s): R22.30 - Localized swelling, mass and lump, unspecified upper limb Plan: Appears?to?be?a?lipoma?at?left?posterior?forearm. Patient?also?has?a?rash?on?that?arm?and?I?will?send?script-see?below (6) Rash: Code(s): R21 - Rash and other nonspecific skin eruption Plan: Left?forearm?dermatitis?verses?yeast?infection?of?the?skin Will?send?a?combo?cream (7) Foot pain: Code(s): M79.673 - Pain in unspecified foot Plan: Patient?has?dorsal?right?foot?pain?with?local?swelling?between?2nd?and?3rd?metat arsals. Referred?to?Podiatry?to?consider?orthotics?or?special?footwear (8) Foot swelling: Code(s): M79.89 - Other specified soft tissue disorders Plan: As?above Orders: Orders Lipid Panel Today N62 - Hypertrophy of breast, Z00.00 - Encounter for general adult medical examination without abnormal findings TSH reflex Free T4 Today N62 - Hypertrophy of breast, Z00.00 - Encounter for general adult medical examination without abnormal findings Comprehensive [place]. Panel Fast Today N62 - Hypertrophy of breast, Z00.00 - Encounter for general adult medical examination without abnormal findings Microalbumin, Random (w Creat) Today I10 - Essential (primary) hypertension, N62 - Hypertrophy of breast Prostate Specific Antigen Scr Today N62 - Hypertrophy of breast, Z12.5 - Encounter for screening for malignant neoplasm of prostate UA and rflx microscopic Today N62 - Hypertrophy of breast, Z00.00 - Encounter for general adult medical examination without abnormal findings Referrals Podiatry Referral M79.673 - Pain in unspecified foot, M79.89 - Other specified soft tissue disorders General Surgery Referral M54.2 - Cervicalgia, N62 - Hypertrophy of breast Medications: New clotrimazole-betamethasone 1-0.05 % 1 appl topical BID 14 days 45 grams 1RF Changed From ibuprofen 300 mg (1/2 x 600 mg) PO Q8H 14 days PRN 23 tabs 2RF pain To ibuprofen 600 mg PO Q8H 30 days PRN 90 tabs 2RF pain Refilled lidocaine 5% leave on most painful area for up to 12 hrs 1 patch topical DAILY PRN 30 ea 1RF pain Coding Level of Care Code Est Pt Level 4 (85583) Diagnoses Sciatica M54.30 Right hip pain M25.551 Fibromyalgia M79.7 Large breasts N62 Skin lump of arm R22.30 Rash R21 Foot pain M79.673 Foot swelling M79.89
[2023-11-14 11:40] VITALS: BP 104/70; PULSE 77; RESP 16; TEMP 36.6; O2SAT 95; BMI 38.7
== END 2023-11-14 12:04 | disposition home or self-care (01) ==
PROVIDERS: PCP Family Medicine; Visit Provider Family Medicine
DX: M54.30 Sciatica, unspecified side (principal); M25.551 Pain in right hip; M79.7 Fibromyalgia; N62 Hypertrophy of breast; R22.32 Localized swelling, mass and lump, left upper limb; R21 Rash and other nonspecific skin eruption; M79.673 Pain in unspecified foot; M79.89 Other specified soft tissue disorders
CPT/HCPCS: 99214

== ENCOUNTER 2023-12-06 14:45 | Emergency (ER) | payer OTHER, SELFPAY ==
--- NOTE | ~2023-12-06 | XR_ITS ---
EXAMINATION: CR LEFT SHOULDER. CR LEFT ELBOW. CLINICAL INFORMATION: Shoulder pain. Fall. Patient states fell onto left shoulder yesterday causing pain radiating down arm. Patient unable to extend arm for proper elbow positioning. COMPARISON: Left humerus dated 12/06/2003. Left shoulder dated 05/13/2002. TECHNIQUE: 4 views of the left shoulder. 3 views of the left elbow. FINDINGS: Left shoulder: There is inferior subluxation of the left humeral head relative to the glenoid. Positioning of the humeral head relative to the glenoid is suboptimally assessed on the scapular Y view due to nonstandard positioning and suboptimal technique and overlap of multiple structures. No definite dislocation is appreciated. The subsequent left humerus films. No acute fractures noted. The left clavicle and included left ribs are intact. Left elbow: No definite acute fracture or dislocation. Due to nonstandard positioning, the presence of an elbow joint effusion cannot be assessed. XR/XR elbow LT min 3V IMPRESSION: * Inferior subluxation of the left humeral head relative to the glenoid is seen. No definite dislocation is seen. * No acute fracture of the left shoulder or left elbow. Electronically signed by: Bridgett Levy MD 12/06/2023 08:13 PM EDT RP
--- NOTE | ~2023-12-06 | XR_ITS ---
EXAMINATION: XR HUMERUS, LEFT CLINICAL INFORMATION: Fall COMPARISON: None available. TECHNIQUE: AP and lateral views of the left humerus. FINDINGS: The bones and soft tissues are normal. No fracture. Imaged portions of the shoulder and elbow are unremarkable. XR/XR humerus LT IMPRESSION: Normal left humerus. Electronically signed by: Yimi Longo MD 12/06/2023 05:12 PM EDT
--- NOTE | ~2023-12-06 | XR_ITS ---
EXAMINATION: CR LEFT SHOULDER. CR LEFT ELBOW. CLINICAL INFORMATION: Shoulder pain. Fall. Patient states fell onto left shoulder yesterday causing pain radiating down arm. Patient unable to extend arm for proper elbow positioning. COMPARISON: Left humerus dated 12/06/2003. Left shoulder dated 05/13/2002. TECHNIQUE: 4 views of the left shoulder. 3 views of the left elbow. FINDINGS: Left shoulder: There is inferior subluxation of the left humeral head relative to the glenoid. Positioning of the humeral head relative to the glenoid is suboptimally assessed on the scapular Y view due to nonstandard positioning and suboptimal technique and overlap of multiple structures. No definite dislocation is appreciated. The subsequent left humerus films. No acute fractures noted. The left clavicle and included left ribs are intact. Left elbow: No definite acute fracture or dislocation. Due to nonstandard positioning, the presence of an elbow joint effusion cannot be assessed. XR/XR shoulder LT min 2V IMPRESSION: * Inferior subluxation of the left humeral head relative to the glenoid is seen. No definite dislocation is seen. * No acute fracture of the left shoulder or left elbow. Electronically signed by: Bridgett Levy MD 12/06/2023 08:13 PM EDT RP
[2023-12-06 14:49] VITALS: BP 160/73; PULSE 81; RESP 16; TEMP 37; O2SAT 97; BMI 40.6
--- NOTE | 2023-12-06 14:50 | ED_ITS ---
HPI - General Adult General Chief complaint: Extremity Injury, Upper Stated complaint: fall , shoulder pain Time Seen by Provider: 12/06/23 16:20 Source: patient, RN notes reviewed and old records reviewed Mode of arrival: ambulatory History of Present Illness ED Provider: Sita Roy PA-C HPI narrative: 42-year-old female with a past medical history of asthma presenting to the ED complaining of left shoulder/upper arm and elbow pain s/p trip and fall while walking down 4 stairs last night. States sandal got caught on stair. Admits to falling directly onto shoulder, denies head trauma or LOC. Reports pain with shoulder ROM since incident. Denies neck/back pain, CP/SOB, numbness, tingling Related Data Home Medications ?Medication ?Instructions ?Recorded ?Confirmed fexofenadine 180 mg tablet 180 mg PO DAILY 03/09/21 11/14/23 (Annel Allergy) esomeprazole magnesium 20 mg 20 mg PO DAILY PRN 08/30/21 11/14/23 capsule,delayed release (Nexium) Previous Rx's ?Medication ?Instructions ?Recorded acetaminophen 500 mg tablet 1,000 mg (2 x 500 mg) PO QID PRN 06/05/21 (Tylenol Extra Strength) fever or pain #14 tabs albuterol sulfate 90 mcg/actuation 2 inh inhalation Q4-6H PRN 12/09/22 aerosol inhaler shortness of breath or wheezing 30 days #8.5 grams clotrimazole-betamethasone 1 1 appl topical BID 14 days #45 11/14/23 %-0.05 % topical cream grams ibuprofen 600 mg tablet 600 mg PO Q8H PRN pain 30 days #90 11/14/23 tabs lidocaine 5 % topical patch 1 patch topical DAILY PRN pain #30 11/14/23 ea acetaminophen 500 mg tablet 500 mg PO Q6H PRN fever or pain 12/06/23 (Tylenol Extra Strength) #14 tabs cyclobenzaprine 5 mg tablet 5 mg PO Q8H PRN pain (scale score 12/06/23 7-10) 5 days #14 tabs lidocaine 5 % topical patch 1 patch topical DAILY PRN pain #30 12/06/23 (Lidoderm) ea naproxen 500 mg tablet 500 mg PO BID PRN pain 10 days #20 12/06/23 tabs Allergies Allergy/AdvReac Type Severity Reaction Status Date / Time Environmental Allergy Intermediate UNKNOWN Uncoded 12/06/23 14:53 (SEASONAL ALLERGIES) Review of Systems Review of Systems: Yes all other systems are reviewed and are negative Constitutional: Constitutional: Reports as per [facility] Past Medical History Attestation statement: The following information was validated with the patient. Source: old records reviewed Medical History LLQ abdominal pain Numbness of left hand Asthma Surgical History Tubal ligation status History of tubal ligation Family History Family History Father Asthma Diabetes mellitus Mother HTN (hypertension) Maternal Grandmother No problems noted. Brother No problems noted. Brother No problems noted. Sister No problems noted. Sister No problems noted. Sister No problems noted. Sister No problems noted. Sister Colon cancer Son No problems noted. Daughter No problems noted. Daughter No problems noted. 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 Current occupational exposures/hazards: No Cognitive needs: No Hearing needs: No Vision needs: Yes (glasses) Physical Exam ED Vital Signs: Vital Signs - 24 hr 12/06/23 14:49 12/06/23 16:00 12/06/23 18:00 Temperature 98.6 F 98.4 F 96.7 F L Pulse Rate 81 71 73 Respiratory Rate 16 14 16 Blood Pressure 160/73 H 142/94 H 120/76 Pulse Oximetry 97 98 97 Oxygen Delivery Method Room Air Room Air Room Air BMI result Body Mass Index 40.6 Const General: cooperative, healthy appearing and no acute distress Orientation/consciousness: patient oriented x3 Limitations: no limitations HENMT Head: Yes normal to inspection and Yes atraumatic Ears: hearing grossly normal bilaterally General nose exam: Normal external nose present Face and sinus: Yes normal facial exam Eyes General: appearance normal, both eyes and all related structures EOM: EOMs intact bilaterally Neck Neck: Yes normal visual inspection and Yes no meningeal signs Resp Effort & Inspection: normal respiratory effort and no respiratory distress Auscultation: clear to auscultation bilaterally Cardio Rate: regular rate Heart sounds: S1 normal heart sound present and S2 normal heart sound present GI Inspection: Yes normal to inspection Palpation (GI): Soft to palpation, nontender, no guarding and not rigid General: Yes no CVA tenderness Back/Spine/Pelvis Other: No midline cervical/thoracic/lumbar spinous tenderness/step-off or deformity Back: no CVA tenderness Skin Rashes: no rashes Wounds: no wounds Neuro General: patient oriented x3, tone normal and no meningeal signs Cranial nerves: Yes CN's II-XII intact bilaterally Gait exam (Neuro): Normal gait present Extrem Other: Left shoulder without appreciable deformity. No erythema/ecchymosis or rash. Diffusely tender to palpation with limited ROM secondary to pain. Upper humerus with tenderness to palpation Elbow without deformity. Tender to palpation. Full extension limited. Pronation/supination intact. Wrist/hand and forearm nontender. Neurovascularly intact distally. General: Yes normal to inspection Course Course Course Narrative: RME performed by Vilma Fernandez PA-C. Patient is a 42 year old assigned female at presenting to the emergency department with left shoulder and elbow pain after a fall. Patient states she had a trip and fall last night landing on her left side causes left shoulder and elbow pain. Detailed physical exam and review of systems are deferred to the functional manager. Imaging ordered. Patient placed back in the waiting room pending room availability and results. XR humerus LT IMPRESSION: Normal left humerus. -1900--ED care transferred to [facility] pending x-rays and anticipate discharge Medications Administered Discontinued Medications Generic Name Dose Route Start Last Admin Trade Name Alexa PRN Reason Stop Dose Admin Cyclobenzaprine HCl 10 mg 12/06/23 16:51 12/06/23 17:07 Cyclobenzaprine Hcl 10 Mg Tablet PO 12/06/23 16:52 10 mg ONCE ONE Administration Ketorolac Tromethamine 30 mg 12/06/23 16:51 12/06/23 17:08 Ketorolac Tromethamine 30 Mg/Ml Vial IM 12/06/23 16:52 30 mg ONCE ONE Administration Medical Decision Making Medical Decision Making MDM Narrative: 42-year-old female with a past medical history of asthma presenting to the ED complaining of left shoulder/upper arm and elbow pain s/p trip and fall while walking down 4 stairs last night. On exam vital signs stable, NAD, nontoxic appearing, physical exam as noted above. Concern for fracture vs sprain vs contusion. Low suspicion for dislocation, ICH Plan: X-rays, pain control Please refer to course for remaining clinical decision making, interpretation of labs/imaging results, and discussions with consultants and/or family members. Differential Diagnosis Differential Diagnoses: The differential diagnosis associated with the presentation includes As above Admission/Observation Consideration of admission/observation: Escalation of care including admission/observation considered Lab Data [facility] Lab Attestation statement: I reviewed the patient's lab results. Independent Interpretation I performed an independent interpretation of an: Plain X-Ray Radiology Impression Discussion of test interpretation with radiology: I have reviewed the radiologist's reading. External Record Review External record reviewed: Inpatient record, Office record, Outpatient record, Prior outpatient labs, Prior outpatient radiology, Primary care record and Outside ED record Tests considered The following testing was considered but not selected: As above Prescription Management I considered prescription management with: Pain Medication Discharge Plan Discharge Clinical Impression: Injury of shoulder, Elbow injury Patient Disposition: Still a Patient Additional Instructions: Your humerus x-ray is unremarkable Flexeril is a muscle relaxer, take at night as it makes you drowsy, do not drive, drink alcohol, or operate machinery while taking it Naproxen as an anti-inflammatory / pain medication, take with food Lidoderm patches are numbing patches, apply to painful area In addition take Tylenol at home If symptoms persist or worsen, pain becomes unbearable, you developed urinary retention or incontinence, or weakness return to the ED Prescriptions: New acetaminophen [Tylenol Extra Strength] 500 mg tablet 500 mg PO Q6H PRN (Reason: fever or pain) Qty: 14 0RF lidocaine [Lidoderm] 5 % adhesive patch,medicated 1 patch topical DAILY MDD remove after 12 hours PRN (Reason: pain) Qty: 30 0RF Rx Instructions: leave on most painful area for up to 12 hrs naproxen 500 mg tablet 500 mg PO BID PRN (Reason: pain) 10 Days Qty: 20 0RF cyclobenzaprine 5 mg tablet 5 mg PO Q8H PRN (Reason: pain (scale score 7-10)) 5 Days Qty: 14 0RF No Action acetaminophen [Tylenol Extra Strength] 500 mg tablet 1,000 mg PO QID PRN (Reason: fever or pain) Qty: 14 0RF fexofenadine [Annel Allergy] 180 mg tablet 180 mg PO DAILY ibuprofen 600 mg tablet 600 mg PO Q8H PRN (Reason: pain) 30 Days Qty: 90 2RF lidocaine 5 % adhesive patch,medicated 1 patch topical DAILY PRN (Reason: pain) Qty: 30 1RF Rx Instructions: leave on most painful area for up to 12 hrs clotrimazole-betamethasone 1-0.05 % cream 1 appl topical BID 14 Days Qty: 45 1RF albuterol sulfate 90 mcg/actuation HFA aerosol inhaler 2 inh inhalation Q4-6H PRN (Reason: shortness of breath or wheezing) 30 Days Qty: 8.5 4RF esomeprazole magnesium [Nexium] 20 mg capsule,delayed release(DR/EC) 20 mg PO DAILY PRN Referrals: Jose De Jesus Ye MD [Primary Care Provider] - 5 days Print Language: Thai
[2023-12-06 16:00] VITALS: BP 142/94; PULSE 71; RESP 14; TEMP 36.9; O2SAT 98
[2023-12-06] MEDS: Cyclobenzaprine HCl 10 MG TABLET PO (17:07)
[2023-12-06] MEDS: Ketorolac Tromethamine 30 MG/ML VIAL IM (17:08)
[2023-12-06 18:00] VITALS: BP 120/76; PULSE 73; RESP 16; TEMP 35.9; O2SAT 97
--- NOTE | 2023-12-06 18:38 | PC.NURSE ---
spoke with Karuna in XR- will contact [place] [facility] re: Shoulder and elblow films will call lab intern regarding read status
[2023-12-06 19:51] VITALS: BP 120/76; PULSE 73; RESP 16; TEMP 35.9; O2SAT 97
== END 2023-12-06 19:52 | disposition home or self-care (01) ==
PROVIDERS: Emergency Provider Emergency Medicine; PCP Family Medicine
DX: S49.92XA Unspecified injury of left shoulder and upper arm, initial encounter (principal); S59.902A Unspecified injury of left elbow, initial encounter; W10.8XXA Fall (on) (from) other stairs and steps, initial encounter; F17.210 Nicotine dependence, cigarettes, uncomplicated; Z79.899 Other long term (current) drug therapy; Y93.89 Activity, other specified; Y92.9 Unspecified place or not applicable; Y99.9 Unspecified external cause status
CPT/HCPCS: 73030; 73060; 73080; 96372; 99283; 99284; J1885

== ENCOUNTER 2023-12-16 08:40 | Outpatient (AMB) | payer OTHER, SELFPAY ==
[2023-12-16 08:43] VITALS: BP 108/78; PULSE 77; TEMP 36.6; O2SAT 97; BMI 39.4
--- NOTE | 2023-12-16 08:43 | MHC.OFFWIV ---
Intake Vital Signs 12/16/23 08:43 Height 5 ft Weight 202 lb BMI 39.4 BP 108/78 Blood Pressure Location Rt brachial Position Sitting Pulse 77 Pulse Source Pulse Oximeter Temp 97.9 F Temp Source Oral Pulse Oximetry (%) 97 Oxygen Delivery Method Room Air Intake Visit Reasons: EP LT Arm injury not work related Intake Note: pt c/o LT arm injury/pain. Fell on 12/04. Went to [facility] ED on 12/05 Patient Tobacco Use Status: Current everyday Tobacco user Allergies Environmental Allergy (Intermediate, Uncoded 12/16/23 08:48) UNKNOWN (SEASONAL ALLERGIES) Do you need a note to return to daycare/school/sports/work: No HPI HPI Comments History of Present Illness Details This is a 42-year-old right-hand dominant female presenting for re-evaluation of left shoulder pain after falling on December 04. Patient states she was descending for external stairs where she lives when her sandal got caught and she fell onto her left side. Patient was seen in the emergency department on December 06, 2023 and had negative imaging of her left humerus, left shoulder and left elbow. Patient has been taking ibuprofen every 8 hours and utilizing lidocaine patches for her discomfort. Patient states she continues to have pain when lifting her right arm. Patient denies any new injury or trauma and denies any head injury or loss of consciousness as a result of the initial fall on December 05, 2023.. REPLACED BY [facility] Medical History LLQ abdominal pain Numbness of left hand Asthma Surgical History Tubal ligation status History of tubal ligation Family History Father Asthma Diabetes mellitus Mother HTN (hypertension) Maternal Grandmother No problems noted. Brother No problems noted. Brother No problems noted. Sister No problems noted. Sister No problems noted. Sister No problems noted. Sister No problems noted. Sister Colon cancer Son No problems noted. Daughter No problems noted. Daughter No problems noted. 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 Current occupational exposures/hazards: No Cognitive needs: No Hearing needs: No Vision needs: Yes (glasses) Female Reproductive History Menstrual Age of Menarche: 11 Review of Systems Const All systems reviewed & are unremarkable except as noted in HPI and below Reports as per HPI Eyes Reports no additional complaints ENT Reports no additional complaints Card Reports no additional complaints Resp Reports no additional complaints GI Reports no additional complaints Musc Denies back pain and Reports limited range of motion (left shoulder) Skin/Breast Reports system reviewed and no additional complaints, except as documented Psych Reports no additional complaints Physical Exam Vital Signs: Last Vital Signs Temp 97.9 F 12/16/23 08:43 Pulse 77 12/16/23 08:43 BP 108/78 12/16/23 08:43 Pulse Ox 97 12/16/23 08:43 Oxygen Delivery Method Room Air 12/16/23 08:43 BMI result Body Mass Index 39.4 Const General: cooperative, comfortable, no acute distress, well developed, alert, awake and Physically active Nutritional Appearance: obese Orientation/consciousness: patient oriented x3 Limitations: no limitations Neck Neck: Yes full ROM and Yes no meningeal signs Chest Chest palpation & inspection: normal inspection of the chest and normal palpation of entire chest wall Resp Effort & Inspection: normal respiratory effort, able to speak in complete sentences and normal respiratory pattern Back/Spine/Pelvis Cervical Spine: normal cervical lordosis, cervical ROM normal and No Cervical spine tenderness Skin General skin exam: no rashes or lesions noted Neuro General: patient oriented x3 and no meningeal signs Extrem General: Yes normal to inspection and Yes normal gait Right upper extremity: normal to inspection and full ROM Left upper extremity: normal to inspection, shoulder/upper arm (pain in anterior left shoulder with adduction of LUE against resistance) Details: tenderness Location: of the A-C joint and of the proximal humerus; not of the clavicle, not of the scapula, not of the mid-shaft humerus and not over the biceps tendon; no ecchymosis, no crepitus and no unsual warmth, elbow/forearm Details: normal to inspection and normal ROM; no tenderness and no swelling and hand (photo print specialist strength 5/5) Details: normal to inspection and abnormal to inspection; ROM limited Psych Appearance: grossly normal Mental Status: mental status grossly normal Insight: Good insight present (Psych) Judgement: Good judgement present (Psych) Results Reviewed Results Reviewed: ED record from 12.06.2023 reviewed including imaging; no further imaging required at this time. Assessment & Plan Assessment & Plan (1) Tendinopathy of right shoulder: Onset Date: ~11/2023 Comment: Patient will continue to use Ibuprofen and Tylenol as needed for pain and follow-up with PCP for PT referral. Code(s): M67.911 - Unspecified disorder of synovium and tendon, right shoulder Plan: Patient will follow-up with PCP for physical therapy referral for ongoing management and evaluation of this right shoulder tendinopathy. Coding Level of Care Code Est Pt Level 3 (73244) Diagnoses Tendinopathy of right shoulder M67.911 Time Spent (min) 20
== END 2023-12-16 09:27 | disposition home or self-care (01) ==
PROVIDERS: PCP Family Medicine; Visit Provider Physician Assistant
DX: M67.911 Unspecified disorder of synovium and tendon, right shoulder (principal)

== ENCOUNTER → 2023-12-16 08:40 | Outpatient (BNVA) | payer OTHER, SELFPAY | PROVIDERS: PCP Family Medicine | DX: M67.911 Unspecified disorder of synovium and tendon, right shoulder (principal) | CPT/HCPCS: 99212 ==

== ENCOUNTER 2024-02-16 08:43 | Outpatient (AMB) | payer OTHER, SELFPAY ==
[2024-02-16 08:54] VITALS: BP 112/76; PULSE 78; TEMP 36.7; O2SAT 97; BMI 40.1
--- NOTE | 2024-02-16 08:54 | MHC.OFFWIV ---
Intake Vital Signs 02/16/24 08:54 Height 5 ft Weight 205 lb 2 oz BMI 40.1 BP 112/76 Blood Pressure Location Lt brachial Position Sitting Pulse 78 Pulse Source Pulse Oximeter Temp 98.0 F Temp Source Temporal Artery Scan Pulse Oximetry (%) 97 Oxygen Delivery Method Room Air Intake Visit Reasons: EP ? ear infection pain in the RT ear Intake Note: Ha is a 43 year old female who presents to the office today for right ear pain that started 3 days. Patient Tobacco Use Status: Current everyday Tobacco user Allergies Environmental Allergy (Intermediate, Uncoded 02/16/24 08:56) UNKNOWN (SEASONAL ALLERGIES) HPI HPI Comments History of Present Illness Details Patient is a 43-year-old female complaining of 3 days of right ear pain that radiates into her jaw and her teeth. She tells me that last night she had 102.3F fever. She has been taking Tylenol and ibuprofen with minimal relief in her pain. She denies any changes in her hearing. She denies any pain to the bone behind her ear and denies being diabetic. PFS Medical History LLQ abdominal pain Numbness of left hand Asthma Surgical History Tubal ligation status History of tubal ligation Family History Father Asthma Diabetes mellitus Mother HTN (hypertension) Maternal Grandmother No problems noted. Brother No problems noted. Brother No problems noted. Sister No problems noted. Sister No problems noted. Sister No problems noted. Sister No problems noted. Sister Colon cancer Son No problems noted. Daughter No problems noted. Daughter No problems noted. 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 Current occupational exposures/hazards: No Cognitive needs: No Hearing needs: No Vision needs: Yes (glasses) Female Reproductive History Menstrual Age of Menarche: 11 Review of Systems Const All systems reviewed & are unremarkable except as noted in HPI and below Physical Exam Vital Signs: Last Vital Signs Temp 98.0 F 02/16/24 08:54 Pulse 78 02/16/24 08:54 BP 112/76 02/16/24 08:54 Pulse Ox 97 02/16/24 08:54 Oxygen Delivery Method Room Air 02/16/24 08:54 BMI result Body Mass Index 40.1 Const General: cooperative, healthy appearing, comfortable and no acute distress Orientation/consciousness: patient oriented x3 HEENT Head: Yes normal to inspection, Yes No palpable skull fracture present and Yes normocephalic Ears: hearing grossly normal bilaterally, external ears normal, TM normal on the left, EAC's normal, mastoids normal (no TTP) bilaterally and TM abnormal dull, wth effusion, erythematous and with loss of landmarks General nose exam: Normal external nose present Face and sinus: Yes normal facial exam Mouth: Normal oral and palatal mucosa present Teeth and gingiva: dentition normal Throat: Yes posterior oropharynx abnormal (Erythematous) Eyes General: appearance normal, both eyes and all related structures Neck Neck: Yes normal visual inspection, Yes full ROM, Yes no lymphadenopathy, Yes no meningeal signs, Yes trachea midline and Yes supple Resp Effort & Inspection: normal respiratory effort and able to speak in complete sentences Skin General skin exam: no rashes or lesions noted Neuro General: patient oriented x3 and no meningeal signs Assessment & Plan Assessment & Plan (1) Otitis media: Code(s): H66.90 - Otitis media, unspecified, unspecified ear Qualifiers: Chronicity: acute Laterality: right Otitis media type: suppurative Recurrence: non-recurrent Spontaneous tympanic membrane rupture: without spontaneous rupture Qualified Code(s): H66.001 - Acute suppurative otitis media without spontaneous rupture of ear drum, right ear Plan: Sent antibiotic to pharmacy Plan See above Medications: New amoxicillin 875 mg PO Q12H 14 tabs 0RF Coding Level of Care Code Est Pt Level 3 (87209) Diagnoses Non-recurrent acute suppurative otitis media of right ear without spontaneous rupture of tympanic membrane H66.001 Chronicity: acute Laterality: right Otitis media type: suppurative Recurrence: non-recurrent Spontaneous tympanic membrane rupture: without spontaneous rupture
== END 2024-02-16 09:23 | disposition home or self-care (01) ==
PROVIDERS: PCP Family Medicine; Visit Provider Physician Assistant
DX: H66.001 Acute suppurative otitis media without spontaneous rupture of ear drum, right ear (principal)

== ENCOUNTER → 2024-02-16 08:43 | Outpatient (BNVA) | payer OTHER, SELFPAY | PROVIDERS: PCP Family Medicine; Visit Provider Physician Assistant | DX: H66.001 Acute suppurative otitis media without spontaneous rupture of ear drum, right ear (principal) | CPT/HCPCS: 99212 ==

== ENCOUNTER 2024-05-24 08:53 | Outpatient (REF) | payer OTHER, SELFPAY ==
[2024-05-24 09:52] LABS: Appearance Urine Clear; Color Urine Yellow; Glucose Urine UA Negative (Negative); Leukocyte Esterase Urine Negative (Negative); Nitrite Urine Negative (Negative); PH 5.5 (5.0-9.0); Specific Gravity - Urine 1.025 (1.005-1.025); Urine Blood Negative (Negative); Urine Ketones Negative (Negative); Urine Protein Negative (Neg-Trace)
[2024-05-24 09:54] LABS: Alanine Aminotransferase 28 U/L (0-31); Albumin Level 4.3 g/dL (3.5-5.0); Alkaline Phosphatase 92 U/L (39-117); Anion Gap 12 (12-20); Aspartate Amino Transferase 26 U/L (5-31); Bilirubin Total 0.3 mg/dL (0.0-1.0); Blood Urea Nitrogen 9 mg/dL (9-16); Calcium 9.5 mg/dL (8.4-10.2); Carbon Dioxide 25 mmol/L (22-29); Chloride 108 mmol/L (96-108); Cholesterol 219 mg/dL (<200); Estimated Glomerular Filt Rate > 60; Glucose Fasting 110 mg/dL (60-99); HDL Cholesterol 43 mg/dL (>40); LDL Cholesterol Calculated 151 mg/dL (<100); Sodium 141 mmol/L (135-145); Total Protein 7.5 g/dL (6.5-8.0); Triglycerides 129 mg/dL (<150)
[2024-05-24 10:14] LABS: TSH reflex Free T4 1.22 uIU/mL (0.32-4.0)
[2024-05-24 10:16] LABS: Microalbum/Creatinine Ratio Ur 5.1 ug/mg cr (<30)
[2024-05-24 10:23] LABS: Prostate Specific Antigen Scr < 0.10 ng/mL
== END 2024-05-24 08:54 | disposition home or self-care (01) ==
LOC: HO.LAB 08:53
PROVIDERS: PCP Family Medicine; Visit Provider Family Medicine
DX: Z00.00 Encounter for general adult medical examination without abnormal findings (principal); I10 Essential (primary) hypertension; N62 Hypertrophy of breast
CPT/HCPCS: 36415; 80053; 80061; 81003; 82043; 82570; 84153; 84443

== ENCOUNTER 2024-05-28 09:03 | Outpatient (AMB) | payer OTHER, SELFPAY ==
--- NOTE | 2024-05-28 09:09 | A.OFFPC_ITS ---
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: No Is last menstrual period known: No Post menopausal: Yes Patient : No Allergies fruits Allergy (Severe, Uncoded 05/28/24 09:12) Itching Environmental Allergy (Intermediate, Uncoded 02/16/24 08:56) UNKNOWN (SEASONAL ALLERGIES) Medication List - Last Reconciled 05/28/24 by Jose De Jesus Ye MD acetaminophen (Tylenol Extra Strength) 500 mg PO Q6H PRN albuterol sulfate 90 mcg/actuation 2 puffs inhalation Q4-6H PRN 30 days albuterol sulfate 90 mcg/actuation (ProAir RespiClick) 1 inh inhalation Q4-6H PRN 30 days albuterol sulfate 90 mcg/actuation 2 inhalations inhalation Q4-6H PRN 30 days albuterol sulfate 90 mcg/actuation (Ventolin HFA) 2 puffs inhalation Q4-6H PRN 30 days esomeprazole magnesium (Nexium) 20 mg PO DAILY PRN fexofenadine (Annel Allergy) 180 mg PO DAILY ibuprofen 600 mg PO Q8H PRN 30 days lidocaine 5% (Lidoderm) 1 patch topical DAILY PRN MDD remove after 12 hours naproxen 500 mg PO BID PRN 10 days Tobacco use date assessed: 05/28/24 Dental Screening Dental Screen Date: 05/28/24 Did you have a dental visit in the last 12 months?: No Did you have a dental problem in the last 6 months where you did not have access to dental care?: No Was dental information given to patient?: No HPI Annual Physical HPI Details 43 y/o female presents for an extended e xam with f/u labs and health maintenance. Labs drawn 05/24/24. Reviewed labs with pt. Potassium level 4.0 mmol/L. Elevated fasting glucose of 110. Triglycerides 129. TC 219. LDL 151. HDL 43. She notes she had been prescribed artovastatin before but is no longer taking this. Diet has not been good due to mood. PHQ-9 21, RAN-7 18 today. She reports ongoing complaints of fibromyalgia. Has complaints of hidradenitis. Last mammogram 10/01/23 was fine. Follows up with ObGyn for her pap smears. She reports FHx of colon cancer. [facility] Medical History LLQ abdominal pain Numbness of left hand Asthma Surgical History Tubal ligation status History of tubal ligation Family History Father Asthma Diabetes mellitus Mother HTN (hypertension) Maternal Grandmother No problems noted. Brother No problems noted. Brother No problems noted. Sister No problems noted. Sister No problems noted. Sister No problems noted. Sister No problems noted. Sister Colon cancer Son No problems noted. Daughter No problems noted. Daughter No problems noted. 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 1. Little interest or pleasure in doing things: nearly every day 2. Feeling down, depressed, or hopeless: nearly every day 3. Trouble falling or staying asleep, or sleeping too much: nearly every day 4. Feeling tired or having little energy: nearly every day 5. Poor appetite or overeating: nearly every day 6. Feeling bad about yourself - or that you are a failure or have let yourself or your family down: nearly every day 7. Trouble concentrating on things, such as reading the newspaper or watching television: nearly every day 8. Moving or speaking so slowly that other people could have noticed. Or the opposite - being so fidgety or restless that you have been moving around a lot more than usual: not at all 9. Thoughts that you would be better off or of hurting yourself in some way: not at all Total score: 21 Depression Screening Interpretation: Positive Depression Screening Follow-up: New Medication prescribed Depression Screening Done: Yes 46805 - PHQ-9 Billing: Yes Source: Developed by Drs. Prabhjot Heaton, Birdie Wylie, Lorenzo Rolle and colleagues, with an educational rosalie from [email or web address]. Thrive Questionnaire Date Thrive assessed: 05/28/24 I am a: Patient What is your living situation today?: I have a steady place to live Within the past 12 months, did the food you bought not last and you didn't have the money to get more?: Never true Within the past 12 months, did you worry whether your food would run out before you got money to buy more?: Never true Do you have trouble paying for medicines?: No Do you have trouble getting transportation to medical appointments?: No Do you have trouble paying your heating and electricity bill?: No Do you have trouble taking care of your child, family member or friend?: No Do you have trouble with day-to-day activities such as bathing, preparing meals, shopping, managing finances, etc.?: Yes Are you currently unemployed and looking for a job?: Yes Are you interested in more education?: No Please select the resources that you would like help with: None Currently or been in a relationship where the following occur: I choose not to answer THRIVE Score: 0 AUDIT C Alcohol Use Questionnaire (AUDIT-C) 1. How often do you have a drink containing alcohol?: Monthly or less 2. How many drinks containing alcohol do you have on a typical day when you are drinking?: 1 or 2 3. How often do you have six or more drinks on one occasion?: Never Total Score: 1 Score Reviewed/Action Taken: Yes RAN-7 AMB Questionnaire RAN-7 Date RAN - 7 assessed: 05/28/24 Feeling nervous, anxious, or on edge: 3 = Nearly every day Not being able to stop or control worryin = Nearly every day Worrying too much about different things: 3 = Nearly every day Trouble relaxin = Nearly every day Being so restless that it is hard to sit still: 2 = More than half the days Becoming easily annoyed or irritable: 3 = Nearly every day Feeling afraid as if something awful might happen: 1 = Several days Total RAN-7 score (0-4 normal; 5-9 mild; 10-14 moderate; 15-21 severe): 18 Source: Developed by Drs. Prabhojt Heaton, Birdie Wylie, Lorenzo Rolle and colleagues, with an educational rosalie from [email or web address]. RAN-7 Assessment Billing RAN-7 Assessment Tool: RAN-7 Assessment 74660 Review of Systems Const Denies chills, Denies fatigue, Denies fever(s), Denies headache(s) and Denies weakness Eyes Denies change in vision ENT Denies dizziness, Denies headache(s), Denies hearing loss, Denies nasal congest ion, Denies sinus pain, Denies sinus pressure and Denies sore throat Card Denies chest pain, Denies lightheadedness, Denies dyspnea and Denies other (palpitations) Resp Denies cough, Denies dyspnea and Denies wheezing GI Denies abdominal pain, Denies melena, Denies hematochezia, Denies change in bowel habits, Denies dyspepsia and Denies nausea Denies hematuria and Denies dysuria Musc Denies abnormal gait, Denies myalgias, Denies arthralgias, Denies numbness and Denies tingling Skin/Breast Denies rash, Denies unusual bruising and Denies wounds Neuro Denies abnormal gait, Denies dizziness, Denies headache(s), Denies memory loss, Denies numbness, Denies Sensory deficit (Neuro), Denies tingling and Denies weakness Psych Reports anxiety, Reports depression and Denies memory loss Endo Denies cold intolerance, Denies fatigue, Denies heat intolerance, Denies polydipsia and Denies polyuria Sundar/Lymph Denies easy bleeding and Denies easy bruising Aller/Immun Denies wheezing Physical exam (Primary Care) Vital Signs: Last Vital Signs Temp 97.8 F 05/28/24 09:14 Pulse 92 05/28/24 09:14 Resp 14 05/28/24 09:14 BP 116/78 05/28/24 09:14 Pulse Ox 97 05/28/24 09:14 Oxygen Delivery Method Room Air 05/28/24 09:14 BMI result Body Mass Index 39.3 Tobacco/Smoking Status: Tobacco use Status Tobacco use date assessed 05/28/24 05/28/24 09:17 Patient Tobacco Use Status Current everyday Tobacco 05/28/24 09:17 Tobacco use type Cigarette 05/28/24 09:17 e-Cigarette/Vaping Use Never Used 05/28/24 09:17 PHQ-9: PHQ-9 Score PHQ-9: Total score 21 05/28/24 09:25 Depression Screening Interpretation: Positive Depression Screening Follow-up: New Medication prescribed Thrive Assessment: Date of Thrive Assessment Date Thrive assessed 05/28/24 05/28/24 09:17 Currently or been in a relationship where the following occur: I choose not to answer Const General: no acute distress, well developed, alert and awake Nutritional Appearance: well nourished Orientation/consciousness: patient oriented x3 HENMT Head: Yes normocephalic and Yes atraumatic Ears: hearing grossly normal bilaterally and TM's normal bilaterally General nose exam: Normal external nose present and Normal nares present Mouth: Normal oral and palatal mucosa present and moist mucous membranes Teeth and gingiva: dentition normal Throat: Yes posterior oropharynx normal Eyes General: appearance normal, both eyes and all related structures Pupils: Equal, round and reactive pupils present and Pupil accommodation reflex normal EOM: EOMs intact bilaterally Neck Neck: Yes normal visual inspection, Yes no lymphadenopathy and Yes trachea midline Thyroid: Thyroid normal Carotids: no bruits Lymphatic: no lymphadenopathy noted Chest Chest palpation & inspection: normal inspection of the chest Resp Effort & Inspection: normal respiratory effort Auscultation: clear to auscultation bilaterally Cardio Rate: regular rate Rhythm: regular rhythm Heart sounds: S1 normal heart sound present, S2 normal heart sound present, no gallops, no murmurs and no rubs Bruits: no abdominal aortic bruits and no carotid bruits GI Palpation (GI): No Abdominal aortic bruit present, Soft to palpation, nontender, No hepatosplenomegaly present and No Rebound tenderness present Auscultation: normal bowel sounds General: Yes no CVA tenderness Back/Spine/Pelvis Back: no CVA tenderness Cervical Spine: cervical ROM normal and No Cervical spine tenderness Thoracic/Lumbar Spine: thoraco-lumbar ROM normal, No pain with thoraco-lumbar ROM, No thoracic spinal tenderness and No lumbar spinal tenderness Skin Lesions: no lesions Rashes: no rashes Trauma: no lacerations or abrasions Wounds: no wounds Nails: normal Neuro General: patient oriented x3 Cranial nerves: Yes Equal, round and reactive pupils present Cognition (Neuro): normal cognition Gait exam (Neuro): Normal gait present Motor exam (neuro): 5/5 motor strength present throughout Sensory Exam: No Sensory deficit (Neuro) Deep tendon reflexes (DTR's): Right patellar reflex intensity grade: 2+ and Left patellar reflex intensity grade: 2+ Extrem General: Yes normal to inspection and No edema Psych Appearance: grossly normal Affect: normal affect Attitude: cooperative Thought process: Normal thought process present Coding Level of Care Code Est Pt Level 3 (00843) Est Pt Prev Care 40-64y(55542) Diagnoses Hypercholesterolemia E78.00 Pre-diabetes R73.03 Fibromyalgia M79.7 Hidradenitis L73.2 Screening for cervical cancer Z12.4 Obesity E66.9 Depression with anxiety F41.8 GERD (gastroesophageal reflux disease) K21.9 Breast cancer screening by mammogram Z12.31 Screening for colon cancer Z12.11 Adult general medical exam Z00.00 Additional Codes RAN-7 Assessment Billing - RAN-7 Assessment Tool: RAN-7 Assessment 60152 ([id number]) PHQ-9 - 19144 - PHQ-9 Billing: Yes ([id number]) Assessment & Plan Assessment & Plan (1) Hypercholesterolemia: Code(s): E78.00 - Pure hypercholesterolemia, unspecified Category: Medical Plan: LDL?cholesterol?is?too?high.??Start?atorvastatin (2) Pre-diabetes: Code(s): R73.03 - Prediabetes Category: Medical Plan: A1c?6.0%.??Pre?diabetes?range Encouraged?diet?low?in?sugars?and?starches Encouraged?weight?loss (3) Fibromyalgia: Code(s): M79.7 - Fibromyalgia Category: Medical Plan: Chronic?pain?at?hip?girdle?and?flanks?as?well?as?neck?and?shoulders She?had?been?on?medications?in?the?past?but?discontinued?these Resume?pregabalin Resume?duloxetine?which?should?also?help?with?depression?anxiety. (4) Hidradenitis: Code(s): L73.2 - Hidradenitis suppurativa Category: Medical Plan: Start?antibiotic Will?give?her?doxycycline?100?mg?b.i.d. x 10 days. Warm?compresses Encouraged?drainage?if?this?begins?spontaneously Call?or?return?to?office?if?worsening?not?improving (5) Screening for cervical cancer: Code(s): Z12.4 - Encounter for screening for malignant neoplasm of cervix Category: Medical Plan: Followed?by? Up-to-date?Pap?smears Follow-up?as?recommended (6) Obesity: Code(s): E66.9 - Obesity, unspecified Category: Medical Plan: Will?refer?to?the?nurse?navigator?for?nutrition?counseling (7) Depression with anxiety: Code(s): F41.8 - Other specified anxiety disorders Category: Medical Plan: As?above,?starting?duloxetine She?had?been?in?the?past (8) GERD (gastroesophageal reflux disease): Code(s): K21.9 - Gastro-esophageal reflux disease without esophagitis Category: Medical Plan: Patient?uses?omeprazole?OTC Has?had?as?omeprazole?in?the?past?and?I?will?prescribe?this (9) Breast cancer screening by mammogram: Code(s): Z12.31 - Encounter for screening mammogram for malignant neoplasm of breast Category: Medical Plan: Up-to-date?with?mammogram. Prior?mammogram?in?September?was?negative?for?malignancy She?will?schedule?her?next?mammogram?this?summer Ordered (10) Screening for colon cancer: Code(s): Z12.11 - Encounter for screening for malignant neoplasm of colon Category: Medical Plan: Referred?to?Gastroenterology (11) Adult general medical exam: Code(s): Z00.00 - Encounter for general adult medical examination without abnormal findings Category: Medical Plan: 43-year-old?female?presents?for?an?extended?exam Encouraged?healthy?diet?with?active?lifestyle?and?plenty?of?exercise Orders: Orders MM tomosynthesis screening BI Today Z12.31 - Encounter for screening mammogram for malignant neoplasm of breast Referrals Plastic Surgery Referral M54.2 - Cervicalgia, N62 - Hypertrophy of breast Nurse Navigator Referral E66.9 - Obesity, unspecified, R73.03 - Prediabetes Medications: New atorvastatin 40 mg PO BEDTIME 90 days 90 tabs 2RF doxycycline hyclate 100 mg PO BID 10 days 20 tabs 0RF duloxetine 20 mg PO BID 90 days 180 caps 2RF pregabalin 25 mg PO BID 30 days 60 caps 1RF Changed From esomeprazole magnesium (Nexium) 20 mg PO DAILY PRN To esomeprazole magnesium (Nexium) 20 mg PO DAILY 90 days 90 caps 2RF
[2024-05-28 09:14] VITALS: BP 116/78; PULSE 92; RESP 14; TEMP 36.6; O2SAT 97; BMI 39.3
== END 2024-05-28 09:48 | disposition home or self-care (01) ==
PROVIDERS: PCP Family Medicine; Visit Provider Family Medicine
DX: Z00.00 Encounter for general adult medical examination without abnormal findings (principal); E78.00 Pure hypercholesterolemia, unspecified; R73.03 Prediabetes; E66.9 Obesity, unspecified; Z68.39 Body mass index [BMI] 39.0-39.9, adult; M79.7 Fibromyalgia; L73.2 Hidradenitis suppurativa; F41.8 Other specified anxiety disorders; K21.9 Gastro-esophageal reflux disease without esophagitis; Z12.31 Encounter for screening mammogram for malignant neoplasm of breast; Z12.11 Encounter for screening for malignant neoplasm of colon

== ENCOUNTER → 2024-05-28 09:03 | Outpatient (BNVA) | payer OTHER, SELFPAY | PROVIDERS: PCP Family Medicine; Visit Provider Family Medicine | DX: Z00.00 Encounter for general adult medical examination without abnormal findings (principal); E78.00 Pure hypercholesterolemia, unspecified; R73.03 Prediabetes; M79.7 Fibromyalgia; L73.2 Hidradenitis suppurativa; E66.9 Obesity, unspecified; Z68.39 Body mass index [BMI] 39.0-39.9, adult; F41.8 Other specified anxiety disorders; K21.9 Gastro-esophageal reflux disease without esophagitis; Z71.3 Dietary counseling and surveillance | CPT/HCPCS: 83036; 96127; 99212; 99396 ==

== ENCOUNTER 2024-06-24 07:39 | Emergency (ER) | payer OTHER, SELFPAY ==
--- NOTE | ~2024-06-24 | XR_ITS ---
CLINICAL HISTORY: pain 3 views sacrum and coccyx Comparison: None Findings: No fractures or dislocations. No significant arthritic change. No radiopaque foreign body. Impression: 1. Normal sacrum and coccyx This document has been electronically signed by: Santy Vick MD on 06/24/2024 10:50:52
[2024-06-24 07:41] VITALS: BP 127/83; PULSE 86; RESP 16; TEMP 37.1; O2SAT 98; BMI 39.3
[2024-06-24 08:15] LABS: Appearance Urine Clear; Color Urine Yellow; Glucose Urine UA Negative (Negative); Leukocyte Esterase Urine Negative (Negative); Nitrite Urine Negative (Negative); PH >= 9.0 (5.0-9.0); Urine Blood Negative (Negative); Urine Ketones Negative (Negative); Urine Protein Negative (Neg-Trace)
[2024-06-24 08:28] LABS: UPreg QC Valid YES; Urine Pregnancy NEGATIVE (NEGATIVE)
[2024-06-24 08:37] VITALS: BP 118/76; PULSE 84; RESP 18; TEMP 37.3; O2SAT 98
--- NOTE | 2024-06-24 08:50 | ED_ITS ---
HPI - Female Genitourinary General Chief complaint: Urogenital-Female Stated complaint: cold symptoms, leg pain Time Seen by Provider: 06/24/24 08:14 Source: patient Mode of arrival: ambulatory Limitations: no limitations History of Present Illness ED Provider: Manjinder Mansfield HPI Narrative: 43 yold female with pmh of high cholesterol, fibromyalgia, pre-diabetic presents to the ED for sacral cocyx pain since last night, fever this morning, and increase urinary frequency with bodyaches and chills. patient denies any abdominal pain, nuasea, vomitting, or rectal pain. Patient states vaginal discharge, vaginal bleeding, anal pain, or mass/swelling/redness of buttocks. Patient denies any urinary or bowel incontinence Related Data Home Medications ?Medication ?Instructions ?Recorded ?Confirmed fexofenadine 180 mg tablet 180 mg PO DAILY 03/09/21 05/28/24 (Annel Allergy) Previous Rx's ?Medication ?Instructions ?Recorded ibuprofen 600 mg tablet 600 mg PO Q8H PRN pain 30 days #90 11/14/23 tabs acetaminophen 500 mg tablet 500 mg PO Q6H PRN fever or pain 12/06/23 (Tylenol Extra Strength) #14 tabs lidocaine 5 % topical patch 1 patch topical DAILY PRN pain #30 12/06/23 (Lidoderm) ea naproxen 500 mg tablet 500 mg PO BID PRN pain 10 days #20 12/06/23 tabs albuterol sulfate 90 mcg/actuation 2 inh inhalation Q4-6H PRN 04/04/24 aerosol inhaler shortness of breath or wheezing 30 days #8.5 grams albuterol sulfate 90 mcg/actuation 2 puff inhalation Q4-6H PRN 04/04/24 aerosol inhaler shortness of breath or wheezing 30 days #8.5 grams albuterol sulfate 90 mcg/actuation 2 puff inhalation Q4-6H PRN 04/05/24 aerosol inhaler (Ventolin HFA) shortness of breath or wheezing 30 days #8.5 grams albuterol sulfate 90 mcg/actuation 1 inh inhalation Q4-6H PRN 05/13/24 breath activated powder inhaler shortness of breath or wheezing 30 (ProAir RespiClick) days #1 ea atorvastatin 40 mg tablet 40 mg PO BEDTIME 90 days #90 tabs 05/28/24 doxycycline hyclate 100 mg tablet 100 mg PO BID 10 days #20 tabs 05/28/24 duloxetine 20 mg capsule,delayed 20 mg PO BID 90 days #180 caps 05/28/24 release esomeprazole magnesium 20 mg 20 mg PO DAILY 90 days #90 caps 05/28/24 capsule,delayed release (Nexium) pregabalin 25 mg capsule 25 mg PO BID 30 days #60 caps 05/28/24 Allergies Allergy/AdvReac Type Severity Reaction Status Date / Time fruits Allergy Severe Itching Uncoded 06/24/24 07:45 Environmental Allergy Intermediate UNKNOWN Uncoded 06/24/24 07:45 (SEASONAL ALLERGIES) Review of Systems 2 Review of Systems: low back pain ( sacral cocyx pain) fever, chills, bodyaches Yes all other systems are reviewed and are negative [facility] Past Medical History Medical History LLQ abdominal pain Numbness of left hand Asthma Surgical History Tubal ligation status History of tubal ligation Family History Family History Father Asthma Diabetes mellitus Mother HTN (hypertension) Maternal Grandmother No problems noted. Brother No problems noted. Brother No problems noted. Sister No problems noted. Sister No problems noted. Sister No problems noted. Sister No problems noted. Sister Colon cancer Son No problems noted. Daughter No problems noted. Daughter No problems noted. 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 Current occupational exposures/hazards: No Cognitive needs: No Hearing needs: No Vision needs: Yes (glasses) Physical Exam 2 Vital Signs: Vital Signs: Last Vital Signs Temp 98.9 F 06/24/24 14:08 Pulse 83 06/24/24 14:08 Resp 15 06/24/24 14:08 BP 100/55 L 06/24/24 14:08 Pulse Ox 95 06/24/24 14:08 O2 Del Method Room Air 06/24/24 14:08 BMI result Body Mass Index 39.3 Const: General: cooperative, healthy appearing, comfortable, no acute distress, well developed, alert, awake and Physically active O rientation/consciousness: patient oriented x3 HEENT: Head: Yes normal to inspection, Yes No palpable skull fracture present and Yes normocephalic Eyes: General: appearance normal, both eyes and all related structures Neck: Neck: Yes normal visual inspection, Yes full ROM, Yes no lymphadenopathy, Yes no meningeal signs, Yes trachea midline, Yes supple, No anterior neck swelling and No tender Chest: Chest palpation & inspection: normal inspection of the chest Resp: Effort & Inspection: normal respiratory effort and able to speak in complete sentences Auscultation: clear to auscultation bilaterally Cardio: Jugular venous distension: no JVD Heart sounds: S1 normal heart sound present and S2 normal heart sound present GI: Inspection: Yes normal to inspection Palpation (GI): Soft to palpation, not firm, nontender, no guarding and not rigid : Other: Rectal exam; good rectal strength/rectal stone. negative for any saddle anethesia. General: Yes no CVA tenderness Back/Spine/Pelvis: Other: Rectal exam negative for any signs of perianal perirectal abscess. Back: no CVA tenderness and back tenderness (coccyx) Back/spine/pelvis image: 1. Tenderness on palpation. Negative for any erythema, mass, fluctuance, or swelling on palpation. Negative for any signs of anal perirectal abscess. Negative for redness, swelling, or mass on either buttocks. Skin: General skin exam: no rashes or lesions noted, elasticity normal and turgor normal Neuro: General: patient oriented x3, gait normal, tone normal, moves all extremities, Normal light touch and pain sensation, no meningeal signs, no focal motor deficits, CN's II-XI intact bilaterally and normal sensation to monofilament Extrem: General: Yes normal to inspection and Yes full ROM Psych: Appearance: grossly normal, well kempt and not disheveled Medications Administered Discontinued Medications Generic Name Dose Route Start Last Admin Trade Name Freq PRN Reason Stop Dose Admin Ketorolac Tromethamine 30 mg 06/24/24 10:10 06/24/24 10:34 Ketorolac Tromethamine 30 Mg/Ml Vial IM 06/24/24 10:11 30 mg ONCE ONE Administration Medical Decision Making Medical Decision Making [facility] Narrative: 43-year-old female ED for take her coccyx pain, increased urinary frequency, fever and chills. Patient states also body aches. He will see 109. Urine negative for any infection or ketones. negative. COVID, influenza, RSV and strep negative 10;14am: Patient states she is feeling better. Patient denies any urinary/bowel incontinence. Rectal exam positive for good muscle tone. Negative for any anorectal tenderness or discharge. Negative for any anal bleeding. Negative for any saddle anesthesia on exam. Patient has sensation in the perineum and anterior pubic genital area. Toradol lumbar x-ray ordered. Upon re-questioning patient states having stuffy nose, chills and body aches. Not suspecting epidural abscess or cauda equinus but will discuss with Dr. Morillo. 1:40pm: Patient sleeping comfortably in ED bed for at least 2-3 hours after Toradol. Patient walked around the ED with normal gait. Patient is not having any urinary/bowel incontinence. Patient afebrile during ED visit. Patient denies any IV drug use, chronic steroid use, or any immunocompromise diseases. Case was discussed with Dr. Morillo who states unlikely patient is having epidural abscess/caudina equina in coxycc and no need for MRI or CT scan of coccyx. Upon review of her chart patient seemed to have had this problem in the past and was diagnosed as coccydynia. Patient is already on Lyrica, duloxetine, and pre globulin for pain. Patient explained worrisome signs and informed to return to the ED immediately. Patient has no abdominal pain or flank pain. Not suspecting pyelonephritis or kidney stone. No need for abdominal pelvic CT scan. Patient's UA clean. SARs negative. Not suspecting rhabdomyolysis or cauda equinus syndrome. Differential Diagnosis Differential Diagnoses: The differential diagnosis associated with the presentation includes (Viral syndrome, back pain increased urinary frequency.) Admission/Observation Consideration of admission/observation: Escalation of care including admission/observation considered Lab Data [facility] Lab Attestation statement: I reviewed the patient's lab results. 06/24/24 10:51 06/24/24 10:51 Labs: Lab Results 03/27/25 03/27/25 03/27/25 Range/Units 08:02 08:40 10:51 WBC 15.4 H (4.8-10.8) X10*3/uL RBC 4.20 (4.20-5.50) X10*6/uL Hgb 13.0 (12.0-16.0) g/dl Hct 37.5 (37.0-47.0) % MCV 89.3 (80.0-98.0) fL MCH 31.0 (27.0-33.0) pg MCHC 34.7 (31.0-35.0) g/dl RDW 11.7 (11.0-16.0) % Plt Count 148 L D (160-400) X10*3/uL MPV 11.9 (9.4-12.3) fL Immature Gran % (Auto) 0.5 H (0.0-0.4) % Neut % (Auto) 88.1 H (45-73) % Lymph % (Auto) 6.7 L (20-40) % [place] % (Auto) 4.2 (2-11) % Eos % (Auto) 0.1 (0-4) % Baso % (Auto) 0.4 (0-2) % Lymph # (Auto) 1.0 L (1.2-4.9) X10*3/uL [place] # (Auto) 0.7 (0.1-1.2) X10*3/uL Eos # (Auto) 0.0 (0.0-0.4) X10*3/uL Baso # (Auto) 0.1 (0.0-0.2) X10*3/uL Abs Immat Gran (auto) 0.07 H (0.00-0.03) X10*3/uL Absolute Neuts (auto) 13.6 H (2.0-8.3) x10*3/uL Absolute Nucleated RBC 0.000 (0.0-0.012) X10*3/uL Nucleated RBC % (auto) 0.0 (0.0-0.2) /100WBC ESR 14 (0-20) MM/HR Sodium 138 (135-145) mmol/L Potassium 3.4 (3.3-5.1) mmol/L Chloride 108 (96-108) mmol/L Carbon Dioxide 24 (22-29) mmol/L Anion Gap 9 L (12-20) BUN 4 L (9-16) mg/dL Creatinine 0.59 (0.5-1.4) mg/dL Estim Creat Clear Calc 121.2 Estimated GFR > 60 POC Glucose 109 (60-115) mg/dL Random Glucose 103 (60-115) mg/dL Calcium 9.0 (8.4-10.2) mg/dL Total Bilirubin 0.6 (0.0-1.0) mg/dL AST 30 (5-31) U/L ALT 22 (0-31) U/L Alkaline Phosphatase 91 (39-117) U/L C-Reactive Protein 4.13 H (< or = 0.50) mg/dL Total Protein 6.6 (6.5-8.0) g/dL Albumin 4.0 (3.5-5.0) g/dL Urine Color Yellow Urine Appearance Clear Urine pH >= 9.0 (5.0-9.0) Ur Specific [place] 1.010 (1.005-1.025) Urine Protein Negative (Neg-Trace) mg/dL Urine Glucose (UA) Negative (Negative) mg/dL Urine Ketones Negative (Negative) mg/dL Urine Blood Negative (Negative) Urine Nitrite Negative (Negative) Ur Leukocyte Esterase Negative (Negative) Urine Test NEGATIVE (NEGATIVE) Influenza Type A (PCR) NEGATIVE (Negative) Influenza Type B (PCR) NEGATIVE (Negative) RSV RNA Qual (PCR) NEGATIVE (Negative) SARS-CoV-2 RNA (RT-PCR) NEGATIVE (Negative) Independent Interpretation I performed an independent interpretation of an: Plain X-Ray Radiology Impression Discussion of test interpretation with radiology: I have reviewed the radiologist's reading. Independent Historian Clinical information obtained from an independent historian. History obtained from or confirmed by: Other (pateint) Discharge Plan Discharge Clinical Impression: Back pain, Dysuria, Increased urinary frequency Patient Disposition: Home, Self-Care Instructions: Viral Syndrome (ED), Dysuria (ED), Back Pain (ED), Urinary Urgency and Frequency (DC) Additional Instructions: Recommend follow-up with primary care provider. Return to the ED immediately if you have any intractable fever, chills, nausea, vomiting, blood in urine, blood in stool, severe back pain,coccyx pain, urinary/bowel incontinence, numbness/tingling lower extremities, paralysis of lower extremities, anal discharge, anal pain, swelling/redness/mass on coccyx buttocks area, or any other concerning symptoms. Continue taking pain medication you have at home. Prescriptions: No Action albuterol sulfate 90 mcg/actuation HFA aerosol inhaler 2 puff inhalation Q4-6H PRN (Reason: shortness of breath or wheezing) 30 Days Qty: 8.5 0RF albuterol sulfate 90 mcg/actuation HFA aerosol inhaler 2 inh inhalation Q4-6H PRN (Reason: shortness of breath or wheezing) 30 Days Qty: 8.5 4RF albuterol sulfate [Ventolin HFA] 90 mcg/actuation HFA aerosol inhaler 2 puff inhalation Q4-6H PRN (Reason: shortness of breath or wheezing) 30 Days Qty: 8.5 4RF ProAir RespiClick 90 mcg/actuation aerosol powdr breath activated 1 inh inhalation Q4-6H PRN (Reason: shortness of breath or wheezing) 30 Days Qty: 1 3RF acetaminophen [Tylenol Extra Strength] 500 mg tablet 500 mg PO Q6H PRN (Reason: fever or pain) Qty: 14 0RF lidocaine [Lidoderm] 5 % adhesive patch,medicated 1 patch topical DAILY MDD remove after 12 hours PRN (Reason: pain) Qty: 30 0RF Rx Instructions: leave on most painful area for up to 12 hrs naproxen 500 mg tablet 500 mg PO BID PRN (Reason: pain) 10 Days Qty: 20 0RF fexofenadine [Annel Allergy] 180 mg tablet 180 mg PO DAILY ibuprofen 600 mg tablet 600 mg PO Q8H PRN (Reason: pain) 30 Days Qty: 90 2RF doxycycline hyclate 100 mg tablet 100 mg PO BID 10 Days Qty: 20 0RF duloxetine 20 mg capsule,delayed release(DR/EC) 20 mg PO BID 90 Days Qty: 180 2RF pregabalin 25 mg capsule 25 mg PO BID 30 Days Qty: 60 1RF atorvastatin 40 mg tablet 40 mg PO BEDTIME 90 Days Qty: 90 2RF esomeprazole magnesium [Nexium] 20 mg capsule,delayed release(DR/EC) 20 mg PO DAILY 90 Days Qty: 90 2RF Referrals: Jose De Jesus Ye MD [Primary Care Provider] - (Dysuria, coccyx pain) Interventions: ED Discharge Assessment Last Done: 06/24/24 14:08 Discharge Date/Time: 06/24/24 14:09 Print Language: Setswana
[2024-06-24 08:51] LABS: Glucose, Whole Blood 109 mg/dL (60-115)
[2024-06-24 08:55] LABS: Influenza A PCR NEGATIVE (Negative); Influenza B PCR NEGATIVE (Negative); Resp Syncy Virus RNA Qual PCR NEGATIVE (Negative); SARS COV2 PCR INHOUSE NEGATIVE (Negative)
[2024-06-24] MEDS: Ketorolac Tromethamine 30 MG/ML VIAL IM (10:34)
[2024-06-24 10:58] LABS: Basophils Absolute Auto 0.1 X10*3/uL (0.0-0.2); Basophils Percent Auto 0.4 % (0-2); Eosinophils Percent Auto 0.1 % (0-4); Hematocrit 37.5 % (37.0-47.0); Imm Gran Abs Auto 0.07 X10*3/uL (0.00-0.03); Imm Gran Pct Auto 0.5 % (0.0-0.4); Lymphocytes Percent Auto 6.7 % (20-40); MANUAL DIFF FLAG NO; Mean Corpuscular HGB Conc 34.7 g/dl (31.0-35.0); Mean Corpuscular Volume 89.3 fL (80.0-98.0); Mean Platelet Volume 11.9 fL (9.4-12.3); Monocytes Absolute Auto 0.7 X10*3/uL (0.1-1.2); Monocytes Percent Auto 4.2 % (2-11); Neutrophils Absolute Auto 13.6 x10*3/uL (2.0-8.3); Neutrophils Percent Auto 88.1 % (45-73); Platelet Count 148 X10*3/uL (160-400); Red Cell Distribution Width 11.7 % (11.0-16.0); White Blood Count 15.4 X10*3/uL (4.8-10.8)
[2024-06-24 11:38] LABS: Erythrocyte Sedimentation Rate 14 MM/HR (0-20)
[2024-06-24 11:39] VITALS: BP 100/55; PULSE 83; RESP 15; TEMP 37.2; O2SAT 95
[2024-06-24 11:39] LABS: Alanine Aminotransferase 22 U/L (0-31); Alkaline Phosphatase 91 U/L (39-117); Anion Gap 9 (12-20); Aspartate Amino Transferase 30 U/L (5-31); Bilirubin Total 0.6 mg/dL (0.0-1.0); Blood Urea Nitrogen 4 mg/dL (9-16); C Reactive Protein 4.13 mg/dL (< or = 0.50); Carbon Dioxide 24 mmol/L (22-29); Chloride 108 mmol/L (96-108); Creatinine Clr Calc Pharmacy 121.2; Estimated Glomerular Filt Rate > 60; Glucose Random 103 mg/dL (60-115); Potassium 3.4 mmol/L (3.3-5.1); Sodium 138 mmol/L (135-145); Total Protein 6.6 g/dL (6.5-8.0)
[2024-06-24 14:08] VITALS: BP 100/55; PULSE 83; RESP 15; TEMP 37.2; O2SAT 95
== END 2024-06-24 14:09 | disposition home or self-care (01) ==
PROVIDERS: Physician Assistant; Emergency Provider Emergency Medicine; PCP Family Medicine
DX: M53.3 Sacrococcygeal disorders, not elsewhere classified (principal); R30.0 Dysuria; R35.0 Frequency of micturition; R50.9 Fever, unspecified; Z03.818 Encounter for observation for suspected exposure to other biological agents ruled out; J45.909 Unspecified asthma, uncomplicated; F17.210 Nicotine dependence, cigarettes, uncomplicated; Z79.899 Other long term (current) drug therapy; Z79.02 Long term (current) use of antithrombotics/antiplatelets
CPT/HCPCS: 0241U; 36415; 72220; 80053; 81003; 81025; 82947; 85025; 85652; 86140; 96372; 99284; 99285; J1885

== ENCOUNTER → 2024-06-24 10:11 | Outpatient (BNV) | payer OTHER, SELFPAY | PROVIDERS: Emergency Provider Emergency Medicine; PCP Family Medicine; Visit Provider Radiology Diagnostic Radiology | DX: M53.3 Sacrococcygeal disorders, not elsewhere classified (principal) | CPT/HCPCS: 72220 ==

== ENCOUNTER 2024-07-26 07:06 | Outpatient (REF) | payer OTHER, SELFPAY ==
[2024-07-26 08:36] LABS: Alanine Aminotransferase 34 U/L (0-31); Albumin Level 4.3 g/dL (3.5-5.0); Alkaline Phosphatase 98 U/L (39-117); Anion Gap 13 (12-20); Aspartate Amino Transferase 26 U/L (5-31); Bilirubin Total 0.4 mg/dL (0.0-1.0); Blood Urea Nitrogen 8 mg/dL (9-16); Calcium 9.1 mg/dL (8.4-10.2); Carbon Dioxide 25 mmol/L (22-29); Chloride 107 mmol/L (96-108); Cholesterol 172 mg/dL (<200); Estimated Glomerular Filt Rate > 60; Glucose Fasting 117 mg/dL (60-99); HDL Cholesterol 43 mg/dL (>40); LDL Cholesterol Calculated 107 mg/dL (<100); Potassium 3.6 mmol/L (3.3-5.1); Sodium 141 mmol/L (135-145); Total Protein 7.1 g/dL (6.5-8.0); Triglycerides 113 mg/dL (<150)
== END 2024-07-26 07:07 | disposition home or self-care (01) ==
LOC: HO.LAB 07:06
PROVIDERS: PCP Family Medicine; Visit Provider Family Medicine
DX: Z00.00 Encounter for general adult medical examination without abnormal findings (principal); E66.9 Obesity, unspecified
CPT/HCPCS: 36415; 80053; 80061

== ENCOUNTER 2024-07-27 10:24 | Outpatient (AMB) | payer OTHER, SELFPAY ==
--- NOTE | 2024-07-27 10:31 | A.OFFPC_ITS ---
Vital Signs 07/27/24 10:36 Height 5 ft Weight 201 lb BMI 39.3 BP 124/64 Blood Pressure Location Lt brachial Position Sitting Respiration 14 Pulse 82 Pulse Source Pulse Oximeter Temp 97.9 F Temp Source Oral Pulse Oximetry (%) 96 Oxygen Delivery Method Room Air Intake Visit Reasons: f/u hld, anxiety/depression, labs Intake Note: patient is scheduled for anxiety/depression, lab review Credit Collection Specialist Required: No Information Interpreted: clinical only [employer] Dean: Present Accompanied by: Mother Patient : No Allergies fruits Allergy (Severe, Uncoded 06/24/24 07:45) Itching Environmental Allergy (Intermediate, Uncoded 06/24/24 07:45) UNKNOWN (SEASONAL ALLERGIES) Tobacco use date assessed: 05/28/24 Dental Screening Dental Screen Date: 05/28/24 HPI f/u hld, anxiety/depression, labs HPI Details 43 y/o female presents to f/u HLD, labs. Labs drawn 07/26/24. Reviewed labs with pt. Elevated fasting glucose 117. Hx of pre-diabetes - last A1c 6.0%. A1c today 6.1%. Triglycerides 113. TC 172. LDL improved from 151 to 107. She is on artovastatin 40mg and she notes she could be more consistent with her meds. Elevated ALT of 34. She notes some lower extremity edema. She tries to watch the salt in her diet. She reports increased anxiety. Has been following up with a therapist and she notes they have referred her to a psychiatrist. Pt reports some hypersomnia. HPI Comments History of Present Illness Details Documentation assistance for Jose De Jesus Ye MD, was provided by Zeferino Larson, [employer] on 07/27/2024 at 10:43 AM SHANNAN. Ernestina, Dr. Ye, have read, observed, and verified documentation. PFSH Medical History LLQ abdominal pain Numbness of left hand Asthma Surgical History Tubal ligation status History of tubal ligation Family History Father Asthma Diabetes mellitus Mother HTN (hypertension) Maternal Grandmother No problems noted. Brother No problems noted. Brother No problems noted. Sister No problems noted. Sister No problems noted. Sister No problems noted. Sister No problems noted. Sister Colon cancer Son No problems noted. Daughter No problems noted. Daughter No problems noted. 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 1. Little interest or pleasure in doing things: nearly every day 2. Feeling down, depressed, or hopeless: nearly every day 3. Trouble falling or staying asleep, or sleeping too much: nearly every day 4. Feeling tired or having little energy: several days 5. Poor appetite or overeating: several days 6. Feeling bad about yourself - or that you are a failure or have let yourself or your family down: several days 7. Trouble concentrating on things, such as reading the newspaper or watching television: nearly every day 8. Moving or speaking so slowly that other people could have noticed. Or the opposite - being so fidgety or restless that you have been moving around a lot more than usual: nearly every day 9. Thoughts that you would be better off or of hurting yourself in some way: not at all Total score: 18 Depression Screening Interpretation: Positive Depression Screening Done: Yes 99667 - PHQ-9 Billing: Yes Source: Developed by Drs. Prabhjot Heaton, Birdie Wylie, Lorenzo Rolle and colleagues, with an educational rosalie from [employer]. Thrive Questionnaire Date Thrive assessed: 05/28/24 I am a: Patient What is your living situation today?: I have a steady place to live Within the past 12 months, did the food you bought not last and you didn't have the money to get more?: Never true Within the past 12 months, did you worry whether your food would run out before you got money to buy more?: Never true Do you have trouble paying for medicines?: No Do you have trouble getting transportation to medical appointments?: No Do you have trouble paying your heating and electricity bill?: No Do you have trouble taking care of your child, family member or friend?: No Do you have trouble with day-to-day activities such as bathing, preparing meals, shopping, managing finances, etc.?: Yes Are you currently unemployed and looking for a job?: Yes Are you interested in more education?: No Please select the resources that you would like help with: None Currently or been in a relationship where the following occur: I choose not to answer THRIVE Score: 0 RAN-7 AMB Questionnaire RAN-7 Date RAN - 7 assessed: 07/27/24 Feeling nervous, anxious, or on edge: 3 = Nearly every day Not being able to stop or control worryin = Nearly every day Worrying too much about different things: 3 = Nearly every day Trouble relaxin = Several days Being so restless that it is hard to sit still: 1 = Several days Becoming easily annoyed or irritable: 3 = Nearly every day Feeling afraid as if something awful might happen: 3 = Nearly every day Total RAN-7 score (0-4 normal; 5-9 mild; 10-14 moderate; 15-21 severe): 17 Source: Developed by Drs. Prabhjot Heaton, Birdie Wylie, Lorenzo Rolle and colleagues, with an educational rosalie from [employer]. RAN-7 Assessment Billing RAN-7 Assessment Tool: RAN-7 Assessment 55481 Review of Systems Const Denies chills, Denies fatigue, Denies fever(s), Denies headache(s) and Denies weakness ENT Denies dizziness and Denies headache(s) Card Denies dyspnea Resp Denies cough, Denies dyspnea, Denies wheezing and Denies other (shortness of breath) Musc Denies numbness and Denies tingling Neuro Denies dizziness, Denies headache(s), Denies numbness, Denies tingling and Denies weakness Psych Reports anxiety and Denies depression Endo Denies fatigue Aller/Immun Denies wheezing Physical exam (Primary Care) Vital Signs: Last Vital Signs Temp 97.9 F 07/27/24 10:36 Pulse 82 07/27/24 10:36 Resp 14 07/27/24 10:36 BP 124/64 07/27/24 10:36 Pulse Ox 96 07/27/24 10:36 Oxygen Delivery Method Room Air 07/27/24 10:36 BMI result Body Mass Index 39.3 Tobacco/Smoking Status: Tobacco use Status Tobacco use date assessed 05/28/24 07/27/24 10:31 Patient Tobacco Use Status Current everyday Tobacco 07/27/24 10:31 Tobacco use type Cigarette 07/27/24 10:31 e-Cigarette/Vaping Use Never Used 07/27/24 10:31 Depression Screening Interpretation: Positive Thrive Assessment: Date of Thrive Assessment Date Thrive assessed 05/28/24 07/27/24 10:31 Currently or been in a relationship where the following occur: I choose not to answer Const General: well developed; No acute distress Nutritional Appearance: well nourished Orientation/consciousness: patient oriented x3 HENMT Head: Yes normocephalic and Yes atraumatic Eyes General: appearance normal, both eyes and all related structures Pupils: Equal, round and reactive pupils present EOM: EOMs intact bilaterally Resp Effort & Inspection: normal respiratory effort Neuro General: patient oriented x3 and gait normal Cranial nerves: Yes Equal, round and reactive pupils present Psych Affect: normal affect Coding Level of Care Code Est Pt Level 4 (48526) Diagnoses Hypercholesterolemia E78.00 Elevated ALT measurement R74.01 Elevated fasting glucose R73.01 Depression with anxiety F41.8 Edema R60.9 Hypersomnia G47.10 Additional Codes RAN-7 Assessment Billing - RAN-7 Assessment Tool: RAN-7 Assessment 79943 ([id number]) PHQ-9 - 59778 - PHQ-9 Billing: Yes ([id number]) Assessment & Plan Assessment & Plan (1) Hypercholesterolemia: Code(s): E78.00 - Pure hypercholesterolemia, unspecified Category: Medical Plan: LDL?cholesterol?nearly?at?goal?of?less?than?100.??Much?improved. Continue?working?and?consistency?with?atorvastatin Encouraged?exercise?and?a?diet?low?in?saturated?fats?and?cholesterol (2) Elevated ALT measurement: Code(s): R74.01 - Elevation of levels of liver transaminase levels Category: Medical Plan: Patient?has?gained?about?10?lb?over?last?year. Encouraged?exercise?and?weight?loss Will?continue?monitor (3) Elevated fasting glucose: Code(s): R73.01 - Impaired fasting glucose Category: Medical Plan: A1c: ?6.1%. Pre?diabetes?range Will?continue?to?monitor. Encouraged?lifestyle?changes (4) Depression with anxiety: Code(s): F41.8 - Other specified anxiety disorders Category: Medical Plan: Ongoing?depression?and?anxiety She?has?a?therapist?and?therapist?is?referring?her?to?Psychiatry. Continue?current?medications?and?follow- up?with?psychiatry?and?therapy?is?recommended (5) Edema: Code(s): R60.9 - Edema, unspecified Category: Medical Plan: Bernard solomon?has?complaints?of?some?lower?extremity?edema?which?is?worse?as?her?day?pro gresses. Likely?some?mild?venous?insufficiency?as?well?as?decreased?mobility.??Patient?no javi?that?she?has?not?been?walking?or?getting?out?of?the?house?much Encouraged?exercise Elevate?legs Continue?avoiding?salt/sodium (6) Hypersomnia: Code(s): G47.10 - Hypersomnia, unspecified Category: Medical Plan: Referred?to?Sleep?Medicine Orders: Referrals Sleep Medicine Referral G47.10 - Hypersomnia, unspecified
[2024-07-27 10:36] VITALS: BP 124/64; PULSE 82; RESP 14; TEMP 36.6; O2SAT 96; BMI 39.3
== END 2024-07-27 11:14 | disposition home or self-care (01) ==
LOC: HO.HMCFM 10:25
PROVIDERS: PCP Family Medicine; Visit Provider Family Medicine
DX: E78.00 Pure hypercholesterolemia, unspecified (principal); R74.01 Elevation of levels of liver transaminase levels; R73.01 Impaired fasting glucose; F41.8 Other specified anxiety disorders; R60.9 Edema, unspecified; G47.10 Hypersomnia, unspecified

== ENCOUNTER → 2024-07-27 10:24 | Outpatient (BNVA) | payer OTHER, SELFPAY | PROVIDERS: PCP Family Medicine; Visit Provider Family Medicine | DX: E78.00 Pure hypercholesterolemia, unspecified (principal); R74.01 Elevation of levels of liver transaminase levels; R73.01 Impaired fasting glucose; F41.8 Other specified anxiety disorders; R60.9 Edema, unspecified; G47.10 Hypersomnia, unspecified | CPT/HCPCS: 96127; 99212 ==

== ENCOUNTER 2024-10-21 08:51 | Outpatient (REF) | payer OTHER, SELFPAY ==
--- NOTE | ~2024-10-21 | MM_ITS ---
EXAMINATION: MM SCREENING DIGITAL BREAST TOMOSYNTHESIS, BILATERAL CLINICAL INFORMATION: Screening. Asymptomatic. COMPARISON: Comparison made to multiple prior, most recent October 01, 2023, and most remote April 23, 2012. TECHNIQUE: Digital breast tomosynthesis is performed in both the craniocaudal and mediolateral oblique views along with computer-aided detection (CAD). Synthesized 2D images are generated from the tomosynthesis. FINDINGS: BREAST COMPOSITION: There are scattered areas of fibroglandular density (ACR BI-RADS breast composition Category b). BILATERAL BREASTS: No significant masses, suspicious calcifications or other abnormalities are seen in either breast. MM/MM tomosynthesis screening BI IMPRESSION: BILATERAL BREASTS: Negative, no mammographic evidence of malignancy. Normal interval follow-up is recommended in 12 months. ASSESSMENT: BI-RADS 1 - Negative RECOMMENDATION: Routine annual mammography screening. FOLLOW-UP: 1 year F/U This examination should not preclude the clinical evaluation of a suspicious palpable abnormality. This patient's information was entered into a reminder system with a target due date for their next mammogram. Electronically signed by: Kurt Holt MD 10/26/2024 08:12 PM EDT
== END 2024-10-21 08:52 | disposition home or self-care (01) ==
LOC: HO.MAMMO 08:51
PROVIDERS: Visit Provider Family Medicine
DX: Z12.31 Encounter for screening mammogram for malignant neoplasm of breast (principal)
CPT/HCPCS: 77063; 77067

== ENCOUNTER → 2024-10-21 09:00 | Outpatient (BNV) | payer OTHER, SELFPAY | PROVIDERS: Visit Provider Radiology Body Imaging | DX: Z12.31 Encounter for screening mammogram for malignant neoplasm of breast (principal) | CPT/HCPCS: 77063; 77067 ==

== ENCOUNTER 2025-01-19 08:42 | Outpatient (AMB) | payer OTHER, SELFPAY ==
--- NOTE | 2025-01-19 08:49 | MHC.PC.OV ---
Vital Signs 01/19/25 08:55 Height 5 ft Weight 209 lb 2 oz BMI 40.8 BP 110/80 Blood Pressure Location Rt brachial Position Sitting Respiration 18 Pulse 81 Pulse Source Pulse Oximeter Temp 97.7 F Temp Source Oral Pulse Oximetry (%) 98 Oxygen Delivery Method Room Air Intake Visit Reasons: f/u PreDM& HLD RE Intake Note: patient is scheduled to follow up with pcp for pre-dm follow up labs were not complete she will return to complete labs when she is fasting. patient also needs a med refill for all her meds. patient would like to discus getting and MRI and a cough suppressant. Health Education Specialist Required: No Allergies fruits Allergy (Severe, Uncoded 06/24/24 07:45) Itching Environmental Allergy (Intermediate, Uncoded 06/24/24 07:45) UNKNOWN (SEASONAL ALLERGIES) Medication List - Last Reconciled 01/19/25 by Jose De Jesus Ye MD albuterol sulfate 90 mcg/actuation 2 puffs inhalation Q4-6H PRN 30 days albuterol sulfate 90 mcg/actuation (ProAir RespiClick) 1 inh inhalation Q4-6H PRN 30 days albuterol sulfate 90 mcg/actuation 2 inhalations inhalation Q4-6H PRN 30 days albuterol sulfate 90 mcg/actuation (Ventolin HFA) 2 puffs inhalation Q4-6H PRN 30 days atorvastatin 40 mg PO BEDTIME 90 days azithromycin (Zithromax Z-Nir) take 500 mg today (day 1), then 250 mg for 4 days (days 2-5) PO 5 days esomeprazole magnesium (Nexium) 20 mg PO DAILY 90 days fexofenadine (Annel Allergy) 180 mg PO DAILY ibuprofen 600 mg PO Q8H PRN 30 days lidocaine 5% (Lidoderm) 1 patch topical DAILY PRN MDD remove after 12 hours Tobacco use date assessed: 05/28/24 Dental Screening Dental Screen Date: 05/28/24 HPI f/u PreDM& HLD RE HPI Details 44 y/o female presents to f/u pre-diabetes, HLD. No recent labs to review. A1c today 6.0%, unchanged from prior. Pt did gain about 8 lbs since last office visit in June. Has complaints of a cough. Complaints of low back pain. HPI Comments History of Present Illness Details Documentation assistance for Jose De Jesus Ye MD, was provided by Zeferino Larson,? Screen Printing Inspector on 01/19/2025 at 9:12 AM ESTDarius I, Dr. Ye, have read, observed, and verified documentation. [facility] Medical History LLQ abdominal pain Numbness of left hand Asthma Surgical History Tubal ligation status History of tubal ligation Family History Father Asthma Diabetes mellitus Mother HTN (hypertension) Maternal Grandmother No problems noted. Brother No problems noted. Brother No problems noted. Sister No problems noted. Sister No problems noted. Sister No problems noted. Sister No problems noted. Sister Colon cancer Son No problems noted. Daughter No problems noted. Daughter No problems noted. 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 Current occupational exposures/hazards: No Cognitive needs: No Hearing needs: No Vision needs: Yes (glasses) Female Reproductive History Menstrual Age of Menarche: 11 Questionnaire Thrive Questionnaire Date Thrive assessed: 05/28/24 I am a: Patient What is your living situation today?: I have a steady place to live Within the past 12 months, did the food you bought not last and you didn't have the money to get more?: Never true Within the past 12 months, did you worry whether your food would run out before you got money to buy more?: Never true Do you have trouble paying for medicines?: No Do you have trouble getting transportation to medical appointments?: No Do you have trouble paying your heating and electricity bill?: No Do you have trouble taking care of your child, family member or friend?: No Do you have trouble with day-to-day activities such as bathing, preparing meals, shopping, managing finances, etc.?: Yes Are you currently unemployed and looking for a job?: Yes Are you interested in more education?: No Please select the resources that you would like help with: None Currently or been in a relationship where the following occur: I choose not to answer THRIVE Score: 0 RAN-7 AMB Questionnaire RAN-7 Date RAN - 7 assessed: 07/27/24 Source: Developed by Drs. Prabhjot Heaton, Birdie Wylie, Lorenzo Rolle and colleagues, with an educational rosalie from [employer]. Review of Systems Const Denies chills, Denies fatigue, Denies fever(s), Denies headache(s) and Denies weakness ENT Denies dizziness and Denies headache(s) Card Denies dyspnea Resp Reports cough, Denies dyspnea, Denies wheezing and Denies other (shortness of breath) Musc Reports back pain, Denies numbness and Denies tingling Neuro Denies dizziness, Denies headache(s), Denies numbness, Denies tingling and Denies weakness Psych Denies anxiety and Denies depression Endo Denies fatigue Aller/Immun Denies wheezing Physical exam (Primary Care) Vital Signs: Last Vital Signs Temp 97.7 F 01/19/25 08:55 Pulse 81 01/19/25 08:55 Resp 18 01/19/25 08:55 BP 110/80 01/19/25 08:55 Pulse Ox 98 01/19/25 08:55 Oxygen Delivery Method Room Air 01/19/25 08:55 BMI result Body Mass Index 40.8 Tobacco/Smoking Status: Tobacco use Status Tobacco use date assessed 05/28/24 01/19/25 08:58 Patient Tobacco Use Status Current everyday Tobacco 01/19/25 08:58 Tobacco use type Cigarette 01/19/25 08:58 e-Cigarette/Vaping Use Never Used 01/19/25 08:58 Thrive Assessment: Date of Thrive Assessment Date Thrive assessed 05/28/24 01/19/25 08:58 Currently or been in a relationship where the following occur: I choose not to answer Const General: well developed; No acute distress Nutritional Appearance: well nourished Orientation/consciousness: patient oriented x3 HENMT Head: Yes normocephalic and Yes atraumatic Eyes General: appearance normal, both eyes and all related structures Pupils: Equal, round and reactive pupils present EOM: EOMs intact bilaterally Resp Other: Upper airway secretions but no diminished breath sounds Effort & Inspection: normal respiratory effort Neuro General: patient oriented x3 and gait normal Cranial nerves: Yes Equal, round and reactive pupils present Psych Affect: normal affect Coding Level of Care Code Est Pt Level 4 (54738) Diagnoses Pre-diabetes R73.03 Obesity E66.9 Hypercholesterolemia E78.00 Cough R05.9 Low back pain M54.50 Lateral pain of hip M25.559 Bilateral knee pain M25.561; M25.562 Fibromyalgia M79.7 Assessment & Plan Assessment & Plan (1) Pre-diabetes: Code(s): R73.03 - Prediabetes Category: Medical Plan: A1c 6.0%. Still in pre diabetes range and unchanged from prior Patient has gained about 8 lb Encouraged diet low in sugars and starches and encouraged weight loss (2) Obesity: Code(s): E66.9 - Obesity, unspecified Category: Medical Plan: Patient has gained about 8 lb Encouraged weight loss Having difficulty with exercise due to fibromyalgia and chronic, diffuse pain Evaluating underlying pain (3) Hypercholesterolemia: Code(s): E78.00 - Pure hypercholesterolemia, unspecified Category: Medical Plan: Lipids have been elevated and repeat labs were ordered. She has not gotten these drawn yet but get them done in we can review at next office visit (4) Cough: Code(s): R05.9 - Cough, unspecified Category: Medical Plan: Productive cough Upper airway secretions but no diminished breath sounds Significant postnasal drip and sinus pain with thick secretions Start Z-Nir She can use OTC Delsym for cough Sinus rinse as she has been doing (5) Low back pain: Code(s): M54.50 - Low back pain, unspecified Category: Medical (6) Lateral pain of hip: Code(s): M25.559 - Pain in unspecified hip Category: Medical (7) Bilateral knee pain: Code(s): M25.561 - Pain in right knee; M25.562 - Pain in left knee Category: Medical (8) Fibromyalgia: Code(s): M79.7 - Fibromyalgia Category: Medical Plan Patient has history of fibromyalgia and has complaints of low back pain, bilateral lateral hip pain, thigh and knee pain, bilaterally. She is requesting an MRI but has not had recent imaging or physical therapy. Will have her take naproxen b.i.d. Physical therapy Check x-rays Will follow-up at next visit Orders: Orders XR lumbar spine 2-3V Today M54.50 - Low back pain, unspecified SARS-CoV2/FLU/RSV Today B34.9 - Viral infection, unspecified PT Evaluation and Treatment Today M25.559 - Pain in unspecified hip, M25.561 - Pain in right knee, M25.562 - Pain in left knee, M54.50 - Low back pain, unspecified, M79.7 - Fibromyalgia XR hips RADHA min 3V Today M54.50 - Low back pain, unspecified XR knee RT 2V Today M25.561 - Pain in right knee, M25.562 - Pain in left knee XR knee LT 2V Today M25.561 - Pain in right knee, M25.562 - Pain in left knee Medications: New azithromycin (Zithromax Z-Nir) take 500 mg today (day 1), then 250 mg for 4 days (days 2-5) PO 6 tabs 0RF 5 days naproxen 500 mg PO BID PRN 60 tabs 3RF pain 30 days
[2025-01-19 08:55] VITALS: BP 110/80; PULSE 81; RESP 18; TEMP 36.5; O2SAT 98; BMI 40.8
== END 2025-01-19 09:30 | disposition home or self-care (01) ==
LOC: HO.HMCFM 08:42
PROVIDERS: PCP Family Medicine; Visit Provider Family Medicine
DX: R73.03 Prediabetes (principal); E66.9 Obesity, unspecified; Z68.41 Body mass index [BMI] 40.0-44.9, adult; E78.00 Pure hypercholesterolemia, unspecified; R05.9 Cough, unspecified; M54.50 Low back pain, unspecified; M25.551 Pain in right hip; M25.561 Pain in right knee; M25.562 Pain in left knee; M79.7 Fibromyalgia; M25.552 Pain in left hip

== ENCOUNTER 2025-01-19 08:42 | Outpatient (REF) | payer OTHER, SELFPAY ==
[2025-01-19 13:03] LABS: Resp Syncy Virus RNA Qual PCR NEGATIVE (Negative); SARS COV2 PCR INHOUSE NEGATIVE (Negative)
== END 2025-01-19 08:43 | disposition home or self-care (01) ==
LOC: HO.LNP 08:42
PROVIDERS: PCP Family Medicine; Visit Provider Family Medicine
DX: B34.9 Viral infection, unspecified (principal); R73.03 Prediabetes; E66.9 Obesity, unspecified; E78.00 Pure hypercholesterolemia, unspecified; R05.9 Cough, unspecified; M54.50 Low back pain, unspecified; M25.559 Pain in unspecified hip; M25.561 Pain in right knee; M25.562 Pain in left knee; M79.7 Fibromyalgia; Z79.2 Long term (current) use of antibiotics; Z79.899 Other long term (current) drug therapy; Z68.41 Body mass index [BMI] 40.0-44.9, adult
CPT/HCPCS: 87637; 99212